=== PATIENT | female | born 1980 | race Caucasian/White ===

== ENCOUNTER 2023-07-05 10:20 | Outpatient (OUT) | payer BC, SELFPAY ==
--- NOTE | 2023-07-05 | MM_ITS ---
Patient Name: MILENA CARTY MR#: [id number] : 1980 Exam Date: 07/05/2023 Ordering Doctor: DR Jose Manuel Still . RADIOLOGY REPORT PROCEDURE: MM TOMOSYNTHESIS SCREENING BI COMPARISON: MG MAMM SCREEN 3D MYRA CAD, 07/02/2022. INDICATIONS: Screening for malignant neoplasm Calculator Name NCI Breast Cancer Risk Assessment Tool 5 Year Breast Cancer Risk 0.60% Lifetime Breast Cancer Risk 9.70% Personal Breast Cancer No Personal Ovarian Cancer No Treatments None Family Cancers None LOCATION: [facility] BREAST COMPOSITION: Extremely dense, which lowers the sensitivity of mammography. FINDINGS: DIAGNOSTIC CATEGORY 2--BENIGN FINDING: RIGHT BREAST: No significant suspicious finding. Small benign-appearing lymph node within central breast along posterior margin fibroglandular tissue. LEFT BREAST: No significant suspicious finding. No significant change has occurred. RECOMMENDATIONS: ROUTINE MAMMOGRAM AND CLINICAL EVALUATION IN 12 MONTHS. PLEASE NOTE: A NORMAL MAMMOGRAM DOES NOT EXCLUDE THE POSSIBILITY OF BREAST CANCER. A CLINICALLY SUSPICIOUS PALPABLE LUMP SHOULD BE BIOPSIED. Dictated by: Gregg Smith M.D. on 07/05/2023 at 14:48 Approved by: Gregg Smith M.D. on 07/05/2023 at 14:51
== END 2023-07-05 10:21 | disposition home or self-care (01) ==
LOC: MAMMO 10:23
PROVIDERS: PCP Family Medicine; Visit Provider Family Medicine
DX: Z12.31 Encounter for screening mammogram for malignant neoplasm of breast (principal)
CPT/HCPCS: 77063; 77067

== ENCOUNTER 2023-08-17 06:31 | Outpatient (OUT) | payer BC, SELFPAY ==
--- OUTSIDE RECORDS SUMMARY | 2023-08-17 06:35 | XMS_ITS | CCD ---
Author Organization [facility] Care Team Providers Care Digital Media Specialist Name Role Phone TARYN, GEORGE Unavailable Unavailable TARYN, GEORGE Unavailable Unavailable HOY, SEN Unavailable Unavailable Maximiliano Cason Unavailable Unavailable TARYN, GEORGE Unavailable Unavailable TARYN, GEORGE Unavailable Unavailable HOY, SEN Unavailable Unavailable TARYN, GEORGE Unavailable Unavailable TARYN, GEORGE Unavailable Unavailable HOY, SEN Unavailable Unavailable Gorty, Abiodun S Unavailable Unavailable TARYN, GEORGE Unavailable Unavailable TARYN, GEORGE Unavailable Unavailable HOY, SEN Unavailable Unavailable HOY ., DR CHATTERJEE Attending Unavailable HOY ., DR CHATTERJEE Consulting Unavailable HOY ., DR CHATTERJEE Primary Care Unavailable HOY ., DR CHATTERJEE Admitting Unavailable HOY ., DR CHATTERJEE Attending Unavailable HOY ., DR CHATTERJEE Consulting Unavailable HOY ., DR CHATTERJEE Primary Care Unavailable HOY ., DR CHATTERJEE Admitting Unavailable AMARILLO, DR MAXIMILIANO Martin Consulting Unavailable HOY ., DR CHATTERJEE Primary Care Unavailable MORGAN ., DR COOPER Attending Unavailable MORGAN ., DR COOPER Consulting Unavailable MORGAN ., DR COOPER Admitting Unavailable Allergies Allergy Classification Reported Allergen(s) Allergy Type Date of Onset Reaction(s) Facility (1 source) No Known Medication Allergies; Translations: [No Known Medication Allergies] Propensity to adverse reactions to drug (disorder) [facility] Repository Problems Active Problems Problem Classification Problem Date Documented Da te Episodic/Chronic Other screening for suspected conditions (not mental disorders or infectious disease) (5 sources) Encounter for screening mammogram for malignant neoplasm of breast; Translations: [Encounter for screening for malignant neoplasm of cervix] Onset: 04-17-2022 Episodic Unclassified (3 sources) CONTACT W/AND (SUSP) EXPOS COVID-19; Translations: [CONTACT W/AND (SUSP) EXPOS COVID-19] Onset: 08-30-2022 Past or Other Problems Problem Classification Problem Date Documented Date Episodic/Chronic Immunizations and screening for infectious disease (1 source) Encounter for screening for human papillomavirus (HPV); Translations: [ENC SCREENING HUMAN PAPILLOMAVIRUS] Onset: 04-25-2022 Episodic Unclassified (1 source) CONTACT W/AND (SUSP) EXPOS COVID-19; Translations: [CONTACT W/AND (SUSP) EXPOS COVID-19] Onset: 08-27-2022 Results Test Name Value Interpretation Reference Range Facility Covid-19 PCR (CVDTB)on SARS-CoV-2 (COVID-19) RNA JOHNNIE+probe Ql (Unsp spec) Not detected Normal NOT DETECTED [facility] Comment on above: Result Comment: This test is not yet approved or cleared by the [place] FDA. When there are no FDA-approved or cleared tests available, and other criteria are met, FDA can make tests available under an emergency access mechanism called an Emergency Use Authorization (EUA). The EUA for this test is supported by the Detailer of Health and Human Service's (HHS's) declaration that circumstances exist to justify the emergency use of in vitro diagnostics for the detection and/or diagnosis of the virus that causes COVID-19. This EUA will remain in effect (meaning this test can be used) for the duration of the COVID-19 declaration justifying emergency of IVDs, unless it is terminated or revoked by FDA (after which the test may no longer be used). When diagnostic testing is negative, the possibility of a false negative should be considered in the context of a patient's recent exposures and the presence of clinical signs and symptoms consistent with SARS-CoV-2. Performed By: #### C VDTBH #### [facility] [address] [place] [address] Dr. Eb Sol INSULINon 07-03-2022 Insulin 25.2 uIU/mL Critically high 2.6-24.9 [facility] Comment on above: Performed By: #### I NSULIN #### [facility] [address] [place] [address] Dr. Eb Sol CBC AUTO DIFFon 07-02-2022 BASO # 0.1 103/ul Normal 0.0-0.1 [facility] Comment on above: Performed By: #### C BC #### [facility] [address] [place] [address] Dr. Eb Sol Basophils/100 WBC (Bld) 1.2 % Normal 0.2-2.0 [facility] Comment on above: Performed By: #### C BC #### [facility] [address] [place] [address] Dr. Eb Sol EO # 0.2 103/ul Normal 0.0-0.7 [facility] Comment on above: Performed By: #### C BC #### [facility] [address] [place] [address] Dr. Eb Sol Eosinophils/100 WBC (Bld) 3.0 % Normal 0.9-7.0 [facility] Comment on above: Performed By: #### C BC #### [facility] [address] [place] [address] Dr. Eb Sol Erythrocyte distribution width (RBC) [Ratio] 12.8 % Normal 11.0-15.0 [facility] Comment on above: Performed By: #### C BC #### [facility] [address] [place] [address] Dr. Eb Sol Hematocrit (Bld) [Volume fraction] 39.7 % Normal 36.0-48.0 [facility] Comment on above: Performed By: #### C BC #### [facility] [address] [place] [address] Dr. Eb Sol Hemoglobin (Bld) [Mass/Vol] 13.8 g/dL Normal 12.0-16.0 [facility] Comment on above: Performed By: #### C BC #### [facility] [address] [place] [address] Dr. Eb Sol IG # 0.04 10e3/ul Critically high 0.00-0.03 [facility] Comment on above: Performed By: #### C BC #### [facility] [address] [place] [address] Dr. Eb Sol IG % 0.6 % Critically high 0.0-0.5 [facility] Comment on above: Performed By: #### C BC #### [facility] [address] [place] [address] Dr. Eb Sol LYMPH # 1.7 103/ul Normal 1.2-3.8 [facility] Comment on above: Performed By: #### C BC #### [facility] [address] [place] [address] Dr. Eb Sol Lymphocytes/100 WBC (Bld) 26.2 % Normal 20.5-60.0 [facility] Comment on above: Performed By: #### C BC #### [facility] [address] [place] [address] Dr. Eb Sol MANUAL DIFF REQ NO Normal [facility] Comment on above: Performed By: #### C BC #### [facility] [address] [place] [address] Dr. Eb Sol MCH (RBC) [Entitic mass] 29.3 pg Normal 26.7-34.0 [facility] Comment on above: Performed By: #### C BC #### [facility] [address] [place] [address] Dr. Eb Sol MCHC (RBC) [Mass/Vol] 34.8 g/dL Normal 29.9-35.2 [facility] Comment on above: Performed By: #### C BC #### [facility] [address] [place] [address] Dr. Eb Sol MCV (RBC) [Entitic vol] 84.3 fL Normal 81.0-99.0 [facility] Comment on above: Performed By: #### C BC #### [facility] [address] [place] [address] Dr. Eb Sol MONO # 0.6 103/ul Normal 0.3-0.8 [facility] Comment on above: Performed By: #### C BC #### [facility] [address] [place] [address] Dr. Eb Sol Monocytes/100 WBC (Bld) 9.1 % Normal 1.7-12.0 [facility] Comment on above: Performed By: #### C BC #### [facility] [address] [place] [address] Dr. Eb Sol NEUT # 3.9 103/ul Normal 1.4-6.5 [facility] Comment on above: Performed By: #### C BC #### [facility] [address] [address] [address] bE Sol Neutrophils/100 WBC (Bld) 59.9 % Normal 43.0-75.0 [facility] Comment on above: Performed By: #### C BC #### [facility] [address] [address] [address] Eb Sol Platelet mean volume (Bld) [Entitic vol] 10.4 fL Normal 9.5-13.5 [facility] Comment on above: Performed By: #### C BC #### [facility] [address] [place] [address] Dr. Eb Sol PLT 312 103/ul Normal 150-450 [facility] Comment on above: Performed By: #### C BC #### [facility] [address] [place] [address] Dr. Eb Sol RBC 4.71 106/ul Normal 4.20-5.40 [facility] Comment on above: Performed By: #### C BC #### [facility] [address] [place] [address] Dr. Eb Sol WBC 6.6 103/ul Normal 4.0-11.0 [facility] Comment on above: Performed By: #### C BC #### [facility] [address] [place] [address] Dr. Eb Sol FREE THYROXINE INDEX T7on FTI 2.18 Normal 1.30-4.50 [facility] Comment on above: Performed By: #### L IPID, CMP, T7, TSH #### [facility] [address] [place] [address] Dr. Eb Sol T3U 32.0 % Normal 30.0-39.0 [facility] Comment on above: Performed By: #### L IPID, CMP, T7, TSH #### [facility] [address] [place] [address] Dr. Eb Sol T4 [Mass/Vol] 6.80 ug/dL Normal 4.80-13.90 [facility] Comment on above: Performed By: #### L IPID, CMP, T7, TSH #### [facility] [address] [address] [address] Eb Sol GLYCOHEMOGLOBIN A1Con 2022 ADA RECOMMENDATION SEE BELOW Normal [facility] Comment on above: Result Comment: ADA RECOMMENDED LIMIT 4.0 - 6.0 ADA THERAPEUTIC TARGET < 7.0 ACTION SUGGESTED > 7.0 Performed By: #### A 1C ####[facility] [id number] [address]Dr. Eb Sol Glucose [Mass/Vol] 117 mg/dL Normal [facility] Comment on above: Performed By: #### A 1C ####[facility] [id number] [address]Dr. Eb Sol HbA1c (Bld) [Mass fraction] 5.7 % Normal 4.5-6.2 [facility] Comment on above: Performed By: #### A 1C ####[facility] [id number] [address]Dr. Eb Sol IRONon 07-02-2022 Iron [Mass/Vol] 97.0 ug/dL Normal 50.0-170.0 [facility] Comment on above: Performed By: #### I GOOD #### [facility] [address] [place] [address] Dr. Eb Sol LIPID PROFILEon 07-02-2022 CHOL-HDL RATIO NORM SEE BELOW Normal [facility] Comment on above: Result Comment: 3.3 - 4.4 LOW RISK 4.4 - 7.1 AVERAGE RISK 7.1 - 11.0 MODERATE RISK >11.0 HIGH RISK Performed By: #### L IPID, CMP, T7, TSH #### [facility] [address] [address] [address] Eb Sol Cholesterol [Mass/Vol] 247 mg/dL Critically high <=200 [facility] Comment on above: Performed By: #### L IPID, CMP, T7, TSH #### [facility] [address] [address] [address] Eb Sol Cholesterol in HDL [Mass/Vol] 50 mg/dL Normal 40-60 [facility] Comment on above: Performed By: #### L IPID, CMP, T7, TSH #### [facility] [address] [address] [address] Eb Sol Cholesterol in LDL [Mass/Vol] 153.0 mg/dL Normal [facility] Comment on above: Performed By: #### L IPID, CMP, T7, TSH #### [facility] [address] [address] [address] Eb Sol Cholesterol.total/ Cholesterol in HDL [Mass ratio] 4.9 {ratio} Normal [facility] Comment on above: Performed By: #### L IPID, CMP, T7, TSH #### [facility] [address] [address] [address] Eb Sol HDL NORMAL > or = 60 mg/dl - LO W CARDIOVASCULAR RISK <40 mg/dl - HIGH CARDIOVASCULAR RISK Normal [facility] Comment on above: Performed By: #### L IPID, CMP, T7, TSH #### [facility] [address] [address] [address] Eb Sol LDL CALC NORMAL SEE BELOW Normal [facility] Comment on above: Result Comment: <100 mg/dl OPTIMAL 100 - 129 mg/dl NEAR OR ABOVE OPTIMAL 130 - 159 mg/dl BORDERLINE HIGH 160 - 189 mg/dl HIGH >190 mg/dl VERY HIGH Performed By: #### L IPID, CMP, T7, TSH #### [facility] [address] [address] [address] Eb Sol Triglyceride [Mass/Vol] 220 mg/dL Critically high <=150 [facility] Comment on above: Performed By: #### L IPID, CMP, T7, TSH #### [facility] [address] [address] [address] Eb Sol VLDL CALC 44.0 mg/dL Normal [facility] Comment on above: Performed By: #### L IPID, CMP, T7, TSH #### [facility] [address] [address] [address] Eb Sol MG MAMM SCREEN 3D MYRA CADon 07-02-2022 MG MAMM SCREEN 3D MYRA CAD Patient: MILENA CARTY Exam Date: 07/02/2022 : 1980 Gender:F Ordering : DR SEN NOBLES . Admission #: [id number] Family : Order #: [id number] CLICK HERE TO VIEW EXAM RADIOLOGY REPORT PROCEDURE: MAMMOGRAM SCREENING 3D BILATERAL CAD COMPARISON: None. INDICATIONS: Screening mammography Calculator Name NCI Breast Cancer Risk Assessment Tool 5 Year Breast Cancer Risk 0.60% Lifetime Breast Cancer Risk 9.80% Personal Breast Cancer No Personal Ovarian Cancer No Treatments None Family Cancers None LOCATION: [facility] BREAST COMPOSITION: Extremely dense, which lowers the sensitivity of mammography. FINDINGS: DIAGNOSTIC CATEGORY 2--BENIGN FINDING: Scattered benign-appearing nodules are present. Scattered benign-appearing calcifications are present. Scattered benign-appearing lymph nodes are present. RIGHT BREAST: No significant suspicious finding. LEFT BREAST: No significant suspicious finding. RECOMMENDATIONS: ROUTINE MAMMOGRAM AND CLINICAL EVALUATION IN 12 MONTHS. PLEASE NOTE: A NORMAL MAMMOGRAM DOES NOT EXCLUDE THE POSSIBILITY OF BREAST CANCER. A CLINICALLY SUSPICIOUS PALPABLE LUMP SHOULD BE BIOPSIED. Dictated by: Maximiliano Nassar MD on 07/02/2022 at 08:37 Approved by: Maximiliano Nassar MD on 07/02/2022 at 08:41 Normal [facility] PROF 14(COMP METB)on 023 Albumin [Mass/Vol] 3.9 g/dL Normal 3.4-5.0 [facility] Comment on above: Performed By: #### L IPID, CMP, T7, TSH #### [facility] [address] [place] [address] Dr. Eb Sol Albumin/Globulin [Mass ratio] 1.1 {ratio} Normal [facility] Comment on above: Performed By: #### L IPID, CMP, T7, TSH #### [facility] [address] [id number] [address] Eb Sol ALP [Catalytic activity/Vol] 65 U/L Normal 46-116 [facility] Comment on above: Performed By: #### L IPID, CMP, T7, TSH #### [facility] [address] [address] [address] Eb Sol ALT [Catalytic activity/Vol] 33 U/L Normal 14-59 [facility] Comment on above: Performed By: #### L IPID, CMP, T7, TSH #### [facility] [address] [address] [address] Eb Sol Anion gap [Moles/Vol] 16.4 mmol/L Normal [facility] Comment on above: Performed By: #### L IPID, CMP, T7, TSH #### [facility] [address] [address] [address] Eb Sol AST [Catalytic activity/Vol] 21 U/L Normal 15-37 [facility] Comment on above: Performed By: #### L IPID, CMP, T7, TSH #### [facility] [address] [place] [address] Dr. Eb Sol Bilirubin [Mass/Vol] 0.4 mg/dL Normal 0.2-1.0 [facility] Comment on above: Performed By: #### L IPID, CMP, T7, TSH #### [facility] [address] [place] [address] Dr. Eb Sol Calcium [Mass/Vol] 9.2 mg/dL Normal 8.5-10.1 [facility] Comment on above: Performed By: #### L IPID, CMP, T7, TSH #### [facility] [address] [place] [address] Dr. Eb Sol Chloride [Moles/Vol] 104 mmol/L Normal 98-107 [facility] Comment on above: Performed By: #### L IPID, CMP, T7, TSH #### [facility] [address] [address] [address] Eb Sol CO2 [Moles/Vol] 23.8 mmol/L Normal 21.0-32.0 [facility] Comment on above: Performed By: #### L IPID, CMP, T7, TSH #### [facility] [address] [place] [address] Dr. Eb Sol Creatinine [Mass/Vol] 0.97 mg/dL Normal 0.55-1.02 [facility] Comment on above: Performed By: #### L IPID, CMP, T7, TSH #### [facility] [address] [address] [address] Eb Sol EGFR-AF PALESTINIAN >60 Normal >=60 [facility] Comment on above: Performed By: #### L IPID, CMP, T7, TSH #### [facility] [address] [address] [address] Eb Sol EGFR-NON AF PALESTINIAN >60 Normal >=60 [facility] Comment on above: Performed By: #### L IPID, CMP, T7, TSH #### [facility] [address] [address] [address] Eb Sol Globulin (S) [Mass/Vol] 3.6 g/dL Normal [facility] Comment on above: Performed By: #### L IPID, CMP, T7, TSH #### [facility] [address] [place] [address] Dr. Eb Sol Glucose [Mass/Vol] 119 mg/dL Critically high 74-106 [facility] Comment on above: Performed By: #### L IPID, CMP, T7, TSH #### [facility] [address] [address] [address] Eb Sol Potassium [Moles/Vol] 4.2 mmol/L Normal 3.5-5.1 [facility] Comment on above: Performed By: #### L IPID, CMP, T7, TSH #### [facility] [address] [address] [address] Eb Sol Protein [Mass/Vol] 7.5 g/dL Normal 6.4-8.2 [facility] Comment on above: Performed By: #### L IPID, CMP, T7, TSH #### [facility] [address] [place] [address] Dr. Eb Sol Sodium [Moles/Vol] 140 mmol/L Normal 136-145 [facility] Comment on above: Performed By: #### L IPID, CMP, T7, TSH #### [facility] [address] [address] [address] Eb Sol Urea nitrogen [Mass/Vol] 16.0 mg/dL Normal 7.0-18.0 [facility] Comment on above: Performed By: #### L IPID, CMP, T7, TSH #### [facility] [address] [address] [address] Eb Sol Urea nitrogen/Creatinin e [Mass ratio] 16.5 mg/mg Normal [facility] Comment on above: Performed By: #### L IPID, CMP, T7, TSH #### [facility] [address] [place] [address] Dr. Eb Sol TSHon 07-02-2022 TSH 3.367 uIU/mL Normal 0.358-3.740 [facility] Comment on above: Performed By: #### L IPID, CMP, T7, TSH #### [facility] [address] [place] [address] Dr. Eb Sol PAP ACOG PANEL 2: 30 to 65on 04-29-2022 . . Normal [facility] Comment on above: Result Comment: Perf ormed at: WB Performed By: #### [id number] #### [facility] [address] [place] [address] Dr. Eb Sol Age Gdln ACOG Testing - Normal [facility] Comment on above: Performed By: #### [id number] #### [facility] [address] [place] [address] Dr. Eb Sol DIAGNOSIS: Comment Normal [facility] Comment on above: Result Comment: NEGA TIVE FOR INTRAEPITHELIAL LESION OR MALIGNANCY. Performed at: WB Performed By: #### [id number] #### [facility] [address] [place] [address] Dr. Eb Sol HPV Aptima Negative Normal Negative [facility] Comment on above: Result Comment: This nucleic acid amplification test detects fourteen high-risk HPV types (16,18,31,33,35,39,45,51,52,56,58,59,66,68) without differentiation. Performed at: =G Performed By: #### [id number] #### [facility] [address] [place] [address] Dr. Eb Sol HPV Genotype Reflex Comment Normal [facility] Comment on above: Result Comment: Crit eria not met, HPV Genotype not performed. Performed at: WB Performed By: #### [id number] #### [facility] [address] [place] [address] Dr. Eb Sol Methodology: Comment Normal [facility] Comment on above: Result Comment: This liquid based ThinPrep(R) pap test was screened with the use of an image guided system. Performed at: WB Performed By: #### [id number] #### [facility] [address] [place] [address] Dr. Eb Sol Note: Comment Normal [facility] Comment on above: Result Comment: The Pap smear is a screening test designed to aid in the detection of premalignant and malignant conditions of the uterine cervix. It is not a diagnostic procedure and should not be used as the sole means of detecting cervical cancer. Both false-positive and false-negative reports do occur. . Performed at: WB Performed By: #### [id number] #### [facility] [address] [place] [address] Dr. Eb Sol Performed by: Comment Normal [facility] Comment on above: Result Comment: Esperanza Parmar, Quality Improvement Manager (ASCP) Performed at: WB Performed By: #### [id number] #### [facility] [address] [place] [address] Dr. Eb Sol Specimen adequacy: Comment Normal [facility] Comment on above: Result Comment: Sati sfactory for evaluation. Endocervical and/or squamous metaplastic cells (endocervical component) are present. Performed at: WB Performed By: #### [id number] #### [facility] [address] [place] [address] Dr. Eb Sol Intraoperative Noteon 2017 Intraoperative Note [id number]#1.00OTGTIFF [facility] Intraoperative Noteon 2017 Intraoperative Note [id number]#1.[facility]-19 History and Physical [id number]#1.[facility] - Surgeon/P pikny 04-19-2017 Operative Report - Surgeon/Physician [id number]#1.00[facility] Provider Orderson 04-19-2017 Provider Orders [id number]#1.[facility] Orders [id number]#1.[facility] Coding Summaryon 03-28-2017 Coding Summary CODING DATE: 017 [facility] STATUS: Home PAYOR: Commercial Insurance [employer] DESCRIPTION [id number] Level 1 Laparoscopy and Related Services ADMIT DX: REASON FOR VISIT DX: R10.2 Pelvic and perineal pain N83.201 Unspecified ovarian cyst, right side FINAL DX: PRINCIPAL: N83.11 Corpus luteum cyst of right ovary SECONDARY: Z72.0 Tobacco use PYMT PROC APC STAT DESCRIPTION DOCTOR NAME DATE 39091 5361 J1 Laparoscopy, surgical; George Centeno DO 03/19/2017 with removal of adnexal structures (partial or total oophorectomy and/or salpingectomy) NOTE: The code number assigned matches the documented diagnosis and / or procedure in the patient's chart. However, the narrative phrase printed from the coding software may appear abbreviated, or result in slightly different terminology. Coded By: Katelyn Robertson Date Saved: 03/28/2017 07:54 am [facility] Intraoperative Noteon 2016 Intraoperative Note [id number]#1.[facility] - Other Lab Resultson Lab - Other Lab Results [id number]#1.[facility] Sendout Teston Pathology Send Out. See Report [facility] Comment on above: Order Comment: RIGHT OVARY AND TUBE Performed By: #### 2 [id number] ####[facility] (DEFAULT)[address] [place] [address] Consent Formson 03-20-2017 Consent Forms [id number]#1.00[facility] Consent Forms [id number]#1.00[facility] Telemetry Stripson 7 Telemetry Strips [id number]#1.00[facility] Anesthesia Noteon 03-19-2017 Anesthesia Note Patient: MILENA CARTY : 37 years Sex: FEMALE : [birth year]Associated Diagnoses: NoneAuthor: Maximiliano Cason DOPostoperative InformationPost Operative Note: Post Anesthesia Care Unit.Review / ManagementCondition: Stable.AssessmentAnesthetic outcomeNo anesthetic complications noted.PlanTransfer/ Discharge: Patient can be discharged from PACU when criteria met.Condition good.[Electronically Signed on: 03/19/2017 10:26 EST] Maximiliano Cason DO[Verified on: 03/19/2017 10:26 EST] Maximiliano Cason DO [facility] Anesthesia Note Patient: MILENA CARTY : 37 years Sex: FEMALE : [birth year]Associated Diagnoses: NoneAuthor: Maximiliano Casonreoperative InformationAnesthesia history: Patient history: No difficult intubation, No malignant hyperthermia. Family history: No malignant hyperthermia, No prior anesthesia problems.Review of SystemsConstitutionalEyeEar/No se/Mouth/ThroatRespiratory: No shortness of breath, No cough.Cardiovascular: No chest pain.Neurologic: Alert and oriented X4.Health StatusAllergies:Allergic Reactions (All)No Known Medication AllergiesCurrent medications:Home Medications (3) Activeibuprofen 800 mg oral tablet 800 mg = 1 tab(s), PRN, PO, TIDMetoprolol Succinate ER 50 mg oral tablet, extended release 50 mg = 1 tab(s), PO, DailyNorco 5 mg-325 mg oral tablet 1 tab(s), PRN, PO, w5lyAvvketu list (past medical history):All ProblemsHTN (hypertension) / SNOMED CT [id number] / ConfirmedHistoriesFamily History:No family history items have been selected or recorded.Procedure history:Laparoscopy ([id number]) on 01/22/2017 at 37 Years.Carpal tunnel release ([id number]).Comments:01/16/2017 13:22 - Joanne Rollins RNright sideCesarean section ([id number]).Comments:01/16/2017 13:23 - Joanne Rollins RNtimes 1Social History Alcohol Assessment Use: Current. 1-2 times per year Tobacco Assessment Comment: states uses the e-ciggs (throughout the day) Substance Abuse Assessment Substance use: Never..Social & Psychosocial DctzkxUepfrlz69/20/2017 Alcohol Use: Current Frequency: 1-2 times per yearSubstance Abuse01/16/2017 Substance use: NeverTobacco Comment: states uses the e-ciggs (throughout the day) - 01/16/2017 13:26 - Joanne Rollins RN.Physical ExaminationVS/MeasurementsVita l Signs (last 24 hrs) Last ChartedHeart Rate Apical 68 bpm (MAR 19:)Resp Rate 14 br/min (MAR 19:)SBP 116 mmHg (MAR 19:)DBP 86 mmHg (MAR 19:)SpO2 99 % (MAR 19:)General: Alert and oriented, No acute distress.Airway: Mallampati classification: II (soft palate, fauces, uvula visible). Temporomandibular joint mobility: Good. Mouth: Dentures ( Lower dentures, Partial plate ). Neck: Non-tender, Full range of motion.Respiratory: Lungs are clear to auscultation, Respirations are non-labored.Cardiovascular: Normal rate, Regular rhythm.Neurologic: Alert, Oriented.Review / ManagementLaboratory ResultsPlanAmerican Society of Anesthesiologists#(ASA) physical status classification: Class II.Anesthetic Preoperative PlanAnesthesia: General.. Anesthetic plan, risks, benefits, and alternatives discussed with the patient and/or family. Risks discussed: nausea, vomiting, sore throat, serious complications. Patient verbalized understanding. Family/Guardian present. Informed consent was given. Consent was signed by the patient.[Electronically Signed on: 03/19/2017 08:50 EST] Maximiliano Cason DO[Verified on: 03/19/2017 08:50 EST] Maximiliano Cason DO Normal [facility] Inpatient Clinical Summaryon 03-19-2017 Inpatient Clinical Summary [facility] SURGERYClinical Discharge SummaryPERSON INFORMATIONName MILENA CARTY Age 37 Years [birth year]Sex FEMALE Language Divehi PCP Surekha NOBLES Status [facility] Service Ambulatory SurgeryN [id number] Acct# Arrival 03/19/17 06:44:53Visit Reason dx laparoscopy Acuity LOS 004 23:46Address:[address] [place] [address]Dhkkave:PROVIDER INFORMATIONVITALS INFORMATIONVital Sign Triage LatestTemp OralTemp Temporal 36.3 DegC 35.9 DegCTemp IntravascularTemp AxillaryTemp Jjoxrr42 Sat 99 % 100 %Respiratory Rate 14 br/min 14 br/minPeripheral Pulse Rate 68 bpm 55 bpmApical Heart Rate 68 bpm 68 bpmBlood Pressure 116 mmHg / 86 mmHg 99 mmHg / 70 mmHgComment:MEDICAL INFORMATIONAllergy Info:No Known Medication AllergiesPrescriptions Given:Medication List:Continue These Medications:ibuprofen (ibuprofen 800 mg oral tablet) 800 mg Oral 3 times a day as needed for for painmetoprolol (Metoprolol Succinate ER 50 mg oral tablet, extended release) 50 mg Oral every dayDiscontinue These Medications:acetaminophen-hydr ocodone ([place]ford 5 mg-325 mg oral tablet) 1 tab(s) Oral Every 6 hours as needed for for pain may take 1 or 2 tabletsnot to exceed 8 tablets/dayComment:Lab and Radiology ResultsLaboratory or Other Results This Visit (last charted value for your 03/19/2017 visit) Chemistry 03/19/2017 7:15 AM U Preg: NegativeDIET & ACTIVITYPatient Activity Level:Patient Diet:Patient Activity Restrictions:DISCHARGE INFORMATIONDischarge Disposition:Discharge Location:DEPART REASON INCOMPLETE INFORMATIONPATIENT EDUCATION INFORMATIONInstructions:Diagno stic Laparoscopy, Care After - [facility]eno ([facility]Follow up:With: Address: When:George Centeno [address] [id number] Business (1) In 2 weeks 04/02/17Comments:Call for follow up appointmentWith: Address: When:SEN NOBLES [address] [place] [address] Business (1)DIAGNOSIS1:Pelvic pain; 2:Ovarian cyst, rightComment:PHYS DOC NOTES Normal [facility] Inpatient Patient Summaryon 03-19-2017 Inpatient [place] [address] patient Discharge InstructionsName: MILENA CARTYMICHELLEOB: 82 Address: [address] [place] [address] Care Provider:Name: SEN NOBLESPhone: After you are discharged if you find you have any questions, please, call [phone] ext [phone] to speak to a nurse.Discharge Diagnosis: 1:Pelvic pain; 2:Ovarian cyst, rightIf you received any narcotics, sedation, or any other medication that causes drowsiness for the next 24 hours, unless otherwise directed:? Do not drive a car.? Do not operate machinery such as power tools, lawn mowers, drills, sewing machines, or stoves? Avoid alcoholic beverages and drugs for allergies, nerves, or sleep? Do not make important personal or business decisions or sign any legal documentsPremier Health [facility] Center would like to thank you for allowing us to assist you with your healthcare needs. The following includes patient education materials and information regarding your injury/illness.MILENA CARTY CARLOS has been given the following list of follow-up instructions, prescriptions, and patient education materials:Follow-up InstructionsWith: Address: When:George Centeno [address] [place] [address] Business (1) In 2 weeks 04/02/17Comments:Call for follow up appointmentWith: Address: When:SEN NOBLES [facility] [place] [address] Business (1)MedicationsDuring the course of your visit, your medication list was updated with the most current information. The details of those changes are reflected below:Medications to Continue That Have Not ChangedOther Medicationsibuprofen (ibuprofen 800 mg oral tablet) 1 tab(s) Oral 3 times a day as needed for pain.metoprolol (Metoprolol Succinate ER 50 mg oral tablet, extended release) 1 tab(s) Oral every day.No Longer Take the Following Medicationsacetaminophen-hydro codone ([place]ford 5 mg-325 mg oral tablet) 1 tab(s) Oral Every 6 hours as needed for pain. may take 1 or 2 tabletsnot to exceed 8 tablets/day. Refills: 0.It is important to always keep an active list of medications available so that you can share with other providers and manage your medications appropriately. As an additional courtesy, we are also providing you with your final active medications list that you can keep with you.ibuprofen (ibuprofen 800 mg oral tablet) 1 tab(s) Oral 3 times a day as needed for pain.metoprolol (Metoprolol Succinate ER 50 mg oral tablet, extended release) 1 tab(s) Oral every day.Take only the medications listed above. Contact your doctor prior to taking any medications not on this list.Diet & ActivityPatient Activity Level:Patient Diet:Patient Activity Restrictions:Comment:Patient education materials, if any, will display belowDiagnostic Laparoscopy, Care AfterRefer to this sheet in the next few weeks. These instructions provide you with information about caring for yourself after your procedure. Your health care provider may also give you more specific instructions. Your treatment has been planned according to current medical practices, but problems sometimes occur. Call your health care provider if you have any problems or questions after your procedure.WHAT TO EXPECT AFTER THE PROCEDUREAfter your procedure, it is common to have mild discomfort in the throat and abdomen.HOME CARE INSTRUCTIONS? Take arva-xsl-bvjacuh and prescription medicines only as told by your health care provider.? Do not drive for 48 hours or while still taking narcotic pain medications? Walk daily and frequently throughout the day. No heavy exercise until after 2 weeks postoperativley? Do not take baths, swim, or use a hot tub until your health care provider approves. You may shower daily ? Follow instructions from your health care provider about how to take care of your incision. Make sure you:? Wash your hands with soap and water before you change your bandage (dressing). If soap and water are not available, use hand crystal flat grinder.? Change your dressings (Band Aids) daily after shower.? Leave adhesive strips in place until they peel off partially then remove them.? Check your incision area every day (with just washed or sanitized hands only), for signs of infection.? More redness, swelling, or pain.? More fluid or blood.? Warmth. ? Pus or a bad odor Shoulder pain may occur after surgery occassionaly. Increased walking and pain medicine will help ease this and pain will resolve within 12 hours.SEEK MEDICAL CARE IF:? You feel light-headed or faintness unrelated to pain medication usage? You are unable to pass gas or unable to have a bowel movement.? You feel nauseous or you vomit.? You develop a rash.? You have more redness, swelling, or pain around your incisions? You have more fluid or blood coming from your incisions.? You have pus or a bad odor coming from your incisions? You have a fever or chills.SEEK IMMEDIATE MEDICAL CARE IF:? Your pain is getting worse.? You have ongoing vomiting.? The edges of your incision open up.? You have trouble breathing.? You have chest pain.This information is not intended to replace advice given to you by your health care provider. Make sure you discuss any questions you have with your health care provider.Document Released: 03/26/2016 Document Reviewed: 03/26/2016[employer] Patient Education ?2016 [employer].Viruses or BacteriaWhat?s got you sick?Antibiotics only treat bacterial infections. Viral illnesses cannot be treated with antibiotics. When an antibiotic is not prescribed, ask your healthcare professional for tips on how to relieve symptoms and feel better. Usual CauseIllness Viruses Bacteria Antibiotic NeededCold/Runny Nose NOBronchitis/Chest Cold (in otherwise healthy children and adults) NOWhooping Cough YesFlu NOStrep Throat YesSore Throat (except strep) NOFluid in the middle ear (otitis media with effusion) NOUrinary Tract Infection YesAntibiotics Aren?t Always the Answerwww.cdc.gov/getsmart GETSMARTKnow When Antibiotics Trista.[place] Department of Health and Human ServicesCleveland Clinic Fairview Hospitalers for Disease Control and Prevention December 2013 [facility] MAGR Intraoperative Recordon 03-19-2017 MAGR Intraoperative Record MAGR Intra-Op Record Summary Primary Physician: George Centeno DO Finalized Date/Time: 03/19/17 13:24:14 Pt. Name: MILENA CARTY/Sex: 1980 FEMALE Med Rec #: [id number] Physician: George Centeno DO Financial #: [id number] Pt. Type: D Room/Bed: / Admit/Disch: 03/19/17 06:44:53 - 03/19/17 12:05:00 Institution: Case Times MAGR Entry 1 Patient In Room Time 03/19/17 09:04:00 Out Room Time 03/19/17 10:20:00 Anesthesia Start Time 03/19/17 09:04:00 Stop Time 03/19/17 10:20:00 Surgery Start Time 03/19/17 09:30:00 Stop Time 03/19/17 10:11:00 Last Modified By: Valencia Johnson RN 03/19/17 13:19:01 Case Attendance MAGR Entry 1 Entry 2 Entry 3 Case Attendee George Centeno DO, David DO Radloff, Leigh-Ann CST Role Performed Surgeon - Primary Anesthesiologist of Air Sampling And Monitoring Record Time In 03/19/17 09:04:00 03/19/17 09:04:00 03/19/17 09:04:00 Time Out 03/19/17 10:20:00 03/19/17 10:20:00 03/19/17 10:20:00 Procedure Laparoscopy Diagnostic Laparoscopy Diagnostic Laparoscopy Diagnostic Last Modified By: Valencia Johnson RN, Stephanie RN Sauer, Stephanie RN 03/19/17 13:19:07 03/19/17 13:19:07 03/19/17 13:19:07 Entry 4 Entry 5 Case Attendee TyronMichelle Valencia Lopez CST, RN Role Performed Scrub Personnel New Car Get Ready Mechanic Time In 03/19/17 09:04:00 03/19/17 09:04:00 Time Out 03/19/17 10:20:00 03/19/17 10:20:00 Procedure Laparoscopy Diagnostic Laparoscopy Diagnostic Last Modified By: Valencia Johnson RN, Stephanie RN 03/19/17 13:19:07 03/19/17 13:19:07 Surgical Procedures MAGR Pre-Care Text: A.20 Verifies operative procedure, surgical site, and laterality Im.150 Develops individualized plan of care Entry 1 Procedure Laparoscopy Diagnostic Primary Procedure Yes Primary Surgeon George Centeno DO Surgeon Comment Diagnostic Laparoscopy Start 03/19/17 09:30:00 Stop 03/19/17 10:11:00 Anesthesia Type General Surgical Service Gynecology Wound Class Clean Last Modified By: Valencia Johnson RN 03/19/17 13:19:13 Post-Care Text: O.730 The patient's care is consistent with the individualized perioperative plan of care General Case Data MAGR Pre-Care Text: A.350.1 Classifies surgical wound Entry 1 Case Information OR MAGR OR 01 Case Level Level 4 Wound Class Clean Specialty Gynecology ASA Class 2 Diagnosis Preop Diagnosis Pelvic pain right Postop Same As Preop Yes ovarian cyst Postop Diagnosis Pelvic pain right ovarian cyst Last Modified By: Valencia Johnson RN 03/19/17 09:46:24 Post-Care Text: O.760 Patient receives consistent and comparable care regardless of the setting Time Out MAGR Entry 1 Time out date/time 03/19/17 09:26:00 All team members Yes have introduced themselves by name and role Surgeon, Yes Surgeon reviews Yes anesthesia, nurse critical or confirm patient, unexpected steps, site, procedure operative duration, anticipated blood loss Anesthesia team Yes Nursing team Yes reviews any reviews sterility patient-specific (including concerns indicator results) and equipment issues/concerns Antibiotic N/A Is essential Yes prophylaxis given imaging displayed? within the last 60 minutes Last Modified By: Valencia Johnson RN 03/19/17 09:46:52 Patient Positioning MAGR Pre-Care Text: A.280 Identifies baseline musculoskeletal status Im.40 Positions the patient Im.80 Applies safety devices Entry 1 Procedure Laparoscopy Diagnostic Body Position Low Lithotomy Left Arm Position Tucked and padded at Right Arm Position Extended on padded arm side board Left Leg Position Secured in Stirrup Right Leg Position Secured in Stirrup Feet Uncrossed? Yes Press Points Checked Yes Positioning Device Safety Strap Outcome Met (O.80) Yes Last Modified By: Valencia Johnson RN 03/19/17 09:47:19 Post-Care Text: E.290 Evaluates musculoskeletal status O.80 Patient is free from signs and symptoms of injury related to positioning Skin Prep MAGR Pre-Care Text: A.30 Verifies allergies Im.270 Performs skin preparation Im.270.1 Implements protective measures to prevent skin and tissue injury due to chemical sources Entry 1 Skin Prep Syntegrity Prep Agents (Im.270) Povidone-Iodine, Prep By Valencia Johnson RN Chlorhexidine Gluconate Prep Area (Im.270) Abdomen, Vagina and Skin Prep Agent Dry Yes perineum Without Pooling Hair Removal Syntegrity Hair Removal Methods Clipper Hair Removal By Magdalena Love FLANGER Hair Removal Site Pubis Outcome Met (O.100) Yes Last Modified By: Valencia Johnson RN 03/19/17 09:48:14 Post-Care Text: E.10 Evaluates for signs and symptoms of physical injury to skin and tissue O.100 Patient is free from signs and symptoms of chemical injury Counts Verification MAGR Pre-Care Text: A.20 Verifies operative procedure, surgical site, and laterality A.20.2 Assesses the risk for unintended retained foreign body Im.20 Performs required counts Entry 1 Procedure Laparoscopy Diagnostic Counts Verification Initial Counts Items included in Instruments, Sponges, Initial Counts Valencia Johnson RN, the Initial Count Sharps Performed By Michelle Ackerman FLANGER Initial Count Time 03/19/17 08:48:00 Counts Verification Final Counts Items Included in Sponges, Sharps Final Count Status Correct Final Count Final Counts Valencia Johnson RN, Final Count Time 03/19/17 09:55:00 Performed By Michelle Ackerman CST Surgeon notified of Yes final counts status Outcome Met (O.20) Yes Last Modified By: Valencia Johnson RN 03/19/17 10:04:01 Post-Care Text: E.50 Evaluates results of the surgical count O.20 Patient is free from unintended retained foreign objects Patient Care Devices MAGR Pre-Care Text: A.200 Assesses risk for normothermia regulation A.40 Verifies presence of prosthetics or corrective devices Im.280 Implements thermoregulation measures Im.60 Uses supplies and equipment within safe parameters Entry 1 Equipment Type FORCED WARM AIR UNIT Serial ?# [id number] Equipment Setting 43 degrees Last Modified By: Valencia Johnson RN 03/19/17 09:49:10 Post-Care Text: E.10 Evaluates signs and symptoms of physical injury to skin and tissue O.700 Patient is free from signs and symptoms of injury caused by extraneous objects Cautery MAGR Pre-Care Text: A.240 Assesses baseline skin condition A.40 Verifies presence of prosthetics or corrective devices Im.50 Implements protective measures to prevent injury due to electrical sources Entry 1 ESU Type Electrosurgical Unit Identification [id number] Number ESU Settings Syntegrity Cut Setting 25 Coag Setting 25 Grounding Pad Details Grounding Pad Yes Verified By Valencia Johnson RN Needed? Grounding Pad Site Table Grounding Pad Within Expiration Yes Date? Outcome Met (O.10) Yes Last Modified By: Valencia Johnson RN 03/19/17 10:03:24 Post-Care Text: E.10 Evaluates for signs and symptoms of physical injury to skin and tissue O.10 Patient is free from signs and symptoms of injury related to thermal sources Medication Administration MAGR Pre-Care Text: A.210 Identifies physiological status Im.220 Administers prescribed medications Entry 1 Time Administered 03/19/17 10:00:00 Medication .25% MARCAINE WITH EPI Route of Admin Incisional/Surgical Site Volume 30 mL By George Centeno DO Outcome Met (O.130) Yes Last Modified By: Valencia Johnson RN 03/19/17 10:02:31 Post-Care Text: E.20 Evaluates response to medications O.130 Patient receives appropriately administered medication(s) Dressing/Packing MAGR Pre-Care Text: A.350 Assesses susceptibility for infection Im.290 Administer care to wound sites Entry 1 Skin Prep Agent Yes Site Abdomen Removed Prior to Dressing? Wound closure Primary Dressing Item Details Dressing Item 2x2's Tape (Im.290) Wound Closure Strip (Im.290) Outcome Met Yes Last Modified By: Valencia Johnson RN 03/19/17 10:02:54 Post-Care Text: E.200 Evaluates progress of wound healing O.200 Patient's wound perfusion is consistent with or improved from baseline levels Departure from OR MAGR Entry 1 Present on Depart Oxygen Via Stretcher Post-op Destination PACU Skin DFO Condition Intact Description Condition Warm Description Condition Dry Description Airway Maintenance Patient Status Stable Oxygen in Use? Yes Airway Device Simple mask Flow Rate 15 L/min Last Modified By: Valencia Johnson RN 03/19/17 10:03:09 Case Comments Finalized By: Valencia Johnson RN Document Signatures Signed By: Valencia Johnson RN 03/19/17 [facility] [address] [facility] Record [facility] PACU Record [facility] Primary Physician: George Centeno DO Finalized Date/Time: 03/19/17 11:29:42 Pt. Name: MILENA CARTY/Sex: 1980 FEMALE Med Rec #: [id number] Physician: George Centeno DO Financial #: [id number] Pt. Type: D Room/Bed: / Admit/Disch: 03/19/17 06:44:53 - Institution: PACU Case Times MAGR Entry 1 In PACU I 03/19/17 10:22:00 Discharge from PACU 03/19/17 11:00:00 I Last Modified By: Linda Bledsoe RN 03/19/17 11:29:38 General Comments: PATIENT RECEIVED IN PACU- REPORT RECEIVED FROM DR CASON AND VALENCIA JOHNSON RN. PATIENT AROUSEBLE BUT QUICKLY RETURNED TO RESTFUL STATE. RESPIRATIONS EASILY AND UNLABORED- LUNGS CLEAR ON AUSCULTATION. 1100 PATIENT AWAKE AND ALERT. PATIENT TAKING ICE CHIPS AT INTERVALS. PATIENT TRANSFERRED TO PACU II PER VALENCIA JOSE JUAN, RN - REPORT GIVEN TO GILES NELSON RN Finalized By: Linda Bledsoe RN Document Signatures Signed By: Linda Bledsoe RN 03/19/17 11:29 Normal [facility] MAGR Postoperative Recordon 03-19-2017 MAGR Postoperative Record MAGR Phase II Record Summary Primary Physician: George Centeno DO Finalized Date/Time: 03/19/17 12:16:03 Pt. Name: MILENA CARTY /Sex: 1980 FEMALE Med Rec #: [id number] Physician: George Centeno DO Financial #: [id number] Pt. Type: D Room/Bed: / Admit/Disch: 03/19/17 06:44:53 - Institution: Phase II Case Times MAGR Pre-Care Text: Patient is free from s/s of injury. Patient remains free from compromised physical state related to surgery or anesthesia. Patient comfort maintained. Patient/family verbalize understanding of discharge instructions. Entry 1 In PACU II 03/19/17 11:00:00 Discharge from PACU 03/19/17 12:05:00 II Last Modified By: Giles Nelson RN 03/19/17 12:16:01 Post-Care Text: The patient remains free from s/s of injury. Patient's vital signs stable, circulation maintained, return to preop mental and physical status, opsite/dressing intact, minimal or absent nausea and vomiting, tolerates po intake. Patient verbalizes adequate pain control. Patient/family express understanding of discharge instructions. General Comments: Pt arrives per cart accompanied by Clarence Johnson RN, report given. Pt drowsy but responsive. Color good, skin dry and warm. Resp reg., nonlabored. Pt C/O minimal RLQ discomfort. Abd primapore dressings x3 dry and intact. Sc. amt serosang drainage noted on umb. dressing. C&DB effectively. 1145 Disch instructions reviewed with pt and , verbalized understanding. Copy of instructions given to pt. 1150 Assisted up to BR to vd qs. IV discont, bleeding controlled. Abd dressings unchanged. Sm. vag bleeding noted on peripad. Pt cont to deny pain. Pt dressing. 1205 Disch per W/C to private car. Finalized By: Warga, Giles RN Document Signatures Signed By: Giles Nelson RN 03/19/17 12:16 [facility] MAGR Preoperative Recordon 1 05-19-2016 MAGR Preoperative Record MAGR Pre-Op Record Summary Primary Physician: George Centeno DO Finalized Date/Time: 03/19/17 11:10:59 Pt. Name: MILENA CARTY /Sex: 1980 FEMALE Med Rec #: [id number] Physician: George Centeno DO Financial #: [id number] Pt. Type: D Room/Bed: / Admit/Disch: 03/19/17 06:44:53 - Institution: Pre-Op Case Times MAGR Pre-Care Text: Patient will be optimally prepared for surgery. Patient is free from s/s of injury. Provide information to patient/family related to plan of care. Verify patient allergies. Confirm identity and verify consent before the operative or invasive procedure. Entry 1 Patient Arrival Time 03/19/17 07:15:00 Preop Departure 03/19/17 09:00:00 Last Modified By: Giles Nelson RN 03/19/17 11:10:57 Post-Care Text: Patient is prepared mentally and physically and is ready for surgery. The patient remains free from s/s of injury. Patient/family express understanding of plan of care and participate in decisions affecting his or her perioperrative plan of care. Allergies documented appropriately. Patient identifiers and consent correct. General Comments: Pt arrives per amb. Pt denies any CP, SOB, pacemaker/defib., Hx of S/S of flu, or sleep apnea. Pt denies any pain. Pt states menstruating. Finalized By: Giles Nelson RN Document Signatures Signed By: Giles Nelson RN 03/19/17 11:10 [facility] Operative Report - Surgeon/P pinky 03-19-2017 Operative Report - Surgeon/Physician DATE OF PROCEDURE: 03/19/2017PREOPERATIVE DIAGNOSIS: Pelvic pain, complex right ovarian cyst.POSTOPERATIVE DIAGNOSIS: Pelvic pain, complex right ovarian cyst, pendingpathology.OPERATIVE PROCEDURE: Diagnostic laparoscopy, operative laparoscopy, rightsalpingo-oophorectomy.MACARIO GEON: George Centeno, DOANESTHESIA: General by Maximiliano Leahy D.O.COMPLICATIONS: None.ESTIMATED BLOOD LOSS: 25 ccFLUIDS: Approximately 1500 cc Lactated Ringer'sURINE OUTPUT: Patient emptied bladder just prior to the procedure.FINDINGS: 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 Bowel normal appearing.PROCEDURE: The patient was taken to the operating room and placed in thesupine position. After adequate general anesthesia, she was placed into thedorsolithotomy position and was then prepped and draped in the normal sterilefashion. Next, a weighted speculum was placed into the patient's vagina andthe anterior lip of the cervix was then grasped with a single toothtenaculum. An [place] uterine manipulator was then advanced into the cervix toprovide a means to manipulate the uterus. The speculum was then removed fromthe vagina. Attention was then turned to the patient's abdomen, where a 5 mmskin incision was made in the infraumbilical fold. The Veress needle was thencarefully introduced into the peritoneal cavity at a 45 degree angle whiletenting the abdominal wall. Intraperitoneal placement was confirmed by theuse of a water filled syringe and a drop in intra-abdominal pressure with theinsufflation of the CO2 gas. The trocar and sleeve were advanced into theabdomen where placement was confirmed by the laparoscope. Thepneumoperitoneum was obtained with approximately 3 liters of CO2 gas and the5 mm trocar and sleeve were advanced without difficulty into the abdomenwhere placement was confirmed by the laparoscope. A second skin incision wasthen made 2 cm above the pubic symphysis in the right lower quadrant. Thesecond trocar and sleeve (5 mm) was then advanced under direct visualization.A third skin incision was then made 2 cm above the pubic symphysis in theleft lower quadrant. The third trocar and sleeve (12 mm) was then advancedunder direct visualization. A survey of the patient's pelvis and abdomenrevealed the anatomy as discussed in findings. Next, the grasper was thenplaced in the second trocar site and the ovary was found to be very cysticwith multiple cysts on the ovary and the right tube tortuously adhesed to theovary as well. The grasper grasped the ovary until the utero-ovarianligament and the infundibulopelvic ligament could be visualized. Then theLigaSure was placed in the third trocar site and the ligaments were thenserially clamped, coagulated and cut until the right ovary and tube wasfreely mobile, and the endopouch was placed in the third trocar site and thenow freed right ovary and tube was placed into the bag ad was removed througha third trocar site. Excellent hemostasis was noted. The instruments werethen removed from the patient's abdomen and the incision 12 mm was thenclosed fascially with O Vicryl and all the other incisions were then closedwith 4-0 Vicryl in a subcuticular manner on a curved needle. The Acornuterine manipulator was then removed from the patient's vagina and nobleeding was noted from the cervix. Please note Marcaine 0.25% withepinephrine was also injected into the three incisions. The patienttolerated the procedure well. Sponge, lap, needle and instrument counts werecorrect x2. The patient was taken to the recovery room, awake and in stablecondition.SHAMIR Paul #: [id number]: 03/19/2017T: 03/19/2017[Electronically Signed on: 03/26/2017 07:50 EST] George Centeno DO, D.O.[Verified on: 03/26/2017 07:50 EST] George Centeno DO, D.O.[Transcribed on: 03/19/2017 13:00 EST]GDU [facility] Test Urine 1on U Preg Negative [facility] Comment on above: Result Comment: Prieto Lizama 03/19/2017 09:03:33 EST Performed By: #### 3 [id number] ####[facility] (DEFAULT)[address] [place] [address] U Preg Internal Control Pass [facility] Comment on above: Performed By: #### 3 [id number] ####[facility] (DEFAULT)[address] [place] [address] 40[address] Progress Note - Nurseon 02-28 Progress Note - Nurse Preop call completed, patient arriving at 0700 on 03/19/17....preop instructions reviewed[Electronically Signed on: 03/18/2017 13:08 EST] Loren Chaves RN[Verified on: 03/18/2017 13:08 EST] Loren Chaves RN [facility] History and Physicalon 02-11 History and Physical [id number][facility]1.00[facility] - Surgeon/P pinky 02-11-2017 Operative Report - Surgeon/Physician [id number]#1.00[facility] Provider Orderson 02-11-2017 Provider Orders [id number]#1.00[facility] MAGR Preoperative Recordon 1 MAGR Preoperative Record MAGR Pre-Op Record Summary Primary Physician: George Centeno DO Finalized Date/Time: 02/07/17 10:42:56 Pt. Name: MILENA CARTY/Sex: 1980 FEMALE Med Rec #: [id number] Physician: George Centeno DO Financial #: [id number] Pt. Type: D Room/Bed: / Admit/Disch: 01/22/17 06:06:27 - 01/22/17 10:55:00 Institution: Pre-Op Case Times MAGR Pre-Care Text: Patient will be optimally prepared for surgery. Patient is free from s/s of injury. Provide information to patient/family related to plan of care. Verify patient allergies. Confirm identity and verify consent before the operative or invasive procedure. Entry 1 Patient Arrival Time 01/22/17 06:15:00 Preop Departure 01/22/17 07:54:00 Last Modified By: Joanne Rollins RN 02/07/17 10:42:54 Post-Care Text: Patient is prepared mentally and physically and is ready for surgery. The patient remains free from s/s of injury. Patient/family express understanding of plan of care and participate in decisions affecting his or her perioperrative plan of care. Allergies documented appropriately. Patient identifiers and consent correct. General Comments: Pt arrives to w ambulatory. Pt denies any pain, cp, sob, cough or flu like symptoms. Pt denies pacemaker/defibillator or sleep apnea. Finalized By: Joanne Rollins RN Document Signatures Signed By: Joanne Rollins RN 02/07/17 10:42 [facility] MAGR Intraoperative Recordon 01-29-2017 MAGR Intraoperative Record MAGR Intra-Op Record Summary Primary Physician: George Centeno DO Finalized Date/Time: 01/29/17 12:54:01 Pt. Name: CARLOZ MILENAMIGUEL ANGEL Holder/Sex: 1980 FEMALE Med Rec #: [id number] Physician: George Centeno DO Financial #: [id number] Pt. Type: D Room/Bed: / Admit/Disch: 01/22/17 06:06: - 01/22/17 10:55:00 Institution: Case Times MAGR Entry 1 Patient In Room Time 01/22/17 07:57:00 Out Room Time 01/22/17 09:20:00 Anesthesia Start Time 01/22/17 07:57:00 Stop Time 01/22/17 09:20:00 Surgery Start Time 01/22/17 08:23:00 Stop Time 01/22/17 09:12:00 Last Modified By: Valencia Johnson RN 01/22/17 12:14:54 Case Attendance MAGR Entry 1 Entry 2 Entry 3 Case Attendee George Centeno DO, John M MD Sofiak, Brittany F RN Role Performed Surgeon - Primary Anesthesiologist of New Car Get Ready Mechanic Record Time In 01/22/17 07:57:00 01/22/17 07:57:00 01/22/17 07:57:00 Time Out 01/22/17 09:20:00 01/22/17 09:20:00 01/22/17 09:20:00 Procedure Laparoscopy Diagnostic Laparoscopy Diagnostic Laparoscopy Diagnostic Last Modified By: Valencia Johnson RN, Stephanie RN Sauer, Stephanie RN 01/22/17 12:14:56 01/22/17 12:14:56 01/22/17 12:14:56 Entry 4 Entry 5 Entry 6 Case Attendee Valencia Johnson RN, Lauren M CST Nikolaus, Linda M Role Performed New Car Get Ready Mechanic Scrub Personnel Air Sampling And Monitoring Time In 01/22/17 07:57:00 01/22/17 07:57:00 01/22/17 07:57:00 Time Out 01/22/17 09:20:00 01/22/17 09:20:00 01/22/17 09:20:00 Procedure Laparoscopy Diagnostic Laparoscopy Diagnostic Laparoscopy Diagnostic Last Modified By: Valencia Johnson RN, Stephanie RN Sauer, Stephanie RN 01/22/17 12:14:56 01/22/17 12:14:56 01/22/17 12:14:56 Surgical Procedures MAGR Pre-Care Text: A.20 Verifies operative procedure, surgical site, and laterality Im.150 Develops individualized plan of care Entry 1 Procedure Laparoscopy Diagnostic Primary Procedure Yes Primary Surgeon George Centeno DO Surgeon Comment DX LAPAROSCOPY Start 01/22/17 08:23:00 Stop 01/22/17 09:12:00 Anesthesia Type General Surgical Service Gynecology Wound Class Clean Last Modified By: Milagro Isaacs RN 01/29/17 12:53:53 Post-Care Text: O.730 The patient's care is consistent with the individualized perioperative plan of care General Case Data MAGR Pre-Care Text: A.350.1 Classifies surgical wound Entry 1 Case Information OR MAGR OR 01 Case Level Level 4 Wound Class Clean Specialty Gynecology ASA Class 2 Diagnosis Preop Diagnosis PELIVC PAIN Postop Same As Preop Yes Postop Diagnosis PELIVC PAIN Last Modified By: Milagro Isaacs RN 01/29/17 12:54:00 Post-Care Text: O.760 Patient receives consistent and comparable care regardless of the setting Time Out MAGR Entry 1 Time out date/time 01/22/17 08:20:00 All team members Yes have introduced themselves by name and role Surgeon, Yes Surgeon reviews Yes anesthesia, nurse critical or confirm patient, unexpected steps, site, procedure operative duration, anticipated blood loss Anesthesia team Yes Nursing team Yes reviews any reviews sterility patient-specific (including concerns indicator results) and equipment issues/concerns Antibiotic N/A Is essential Yes prophylaxis given imaging displayed? within the last 60 minutes Last Modified By: Valencia Johnson RN 01/22/17 08:24:08 Patient Positioning MAGR Pre-Care Text: A.280 Identifies baseline musculoskeletal status Im.40 Positions the patient Im.80 Applies safety devices Entry 1 Procedure Laparoscopy Diagnostic Body Position Low Lithotomy Left Arm Position Extended on padded arm Right Arm Position Extended on padded arm board board Left Leg Position Secured in Stirrup Right Leg Position Secured in Stirrup Feet Uncrossed? Yes Press Points Checked Yes Positioning Device Safety Strap Outcome Met (O.80) Yes Last Modified By: Valencia Johnson RN 01/22/17 08:33:39 Post-Care Text: E.290 Evaluates musculoskeletal status O.80 Patient is free from signs and symptoms of injury related to positioning Skin Prep MAGR Pre-Care Text: A.30 Verifies allergies Im.270 Performs skin preparation Im.270.1 Implements protective measures to prevent skin and tissue injury due to chemical sources Entry 1 Skin Prep Syntegrity Prep Agents (Im.270) Povidone-Iodine, Prep By Milagro Isaacs RN Chlorhexidine Gluconate Prep Area (Im.270) Abdomen, Vagina and Skin Prep Agent Dry Yes perineum Without Pooling Hair Removal Syntegrity Hair Removal Methods No hair removal performed Outcome Met (O.100) Yes Last Modified By: Valencia Johnson RN 01/22/17 08:34:15 Post-Care Text: E.10 Evaluates for signs and symptoms of physical injury to skin and tissue O.100 Patient is free from signs and symptoms of chemical injury Counts Verification MAGR Pre-Care Text: A.20 Verifies operative procedure, surgical site, and laterality A.20.2 Assesses the risk for unintended retained foreign body Im.20 Performs required counts Entry 1 Procedure Laparoscopy Diagnostic Counts Verification Initial Counts Items included in Sponges, Sharps Initial Counts Milagro Isaacs the Initial Count Performed By Noah COOMBS Lauren M FLANGER Initial Count Time 01/22/17 07:20:00 Counts Verification Final Counts Items Included in Sponges, Sharps Final Count Status Correct Final Count Final Counts Milagro Isaacs Final Count Time 01/22/17 08:56:00 Performed By RNNoah Lauren M FLANGER Surgeon notified of Yes final counts status Outcome Met (O.20) Yes Last Modified By: Valencia Johnson RN 01/22/17 08:56:05 Post-Care Text: E.50 Evaluates results of the surgical count O.20 Patient is free from unintended retained foreign objects Patient Care Devices MAGR Pre-Care Text: A.200 Assesses risk for normothermia regulation A.40 Verifies presence of prosthetics or corrective devices Im.280 Implements thermoregulation measures Im.60 Uses supplies and equipment within safe parameters Entry 1 Entry 2 Equipment Type FORCED WARM AIR UNIT bilateral untermittent compression devices Serial ?# [id number] Equipment Setting 43 degrees default Last Modified By: Valencia Johnson RN, Stephanie RN 01/22/17 08:36:50 01/22/17 08:36:50 Post-Care Text: E.10 Evaluates signs and symptoms of physical injury to skin and tissue O.700 Patient is free from signs and symptoms of injury caused by extraneous objects [place] MAGR Pre-Care Text: A.240 Assesses baseline skin condition A.40 Verifies presence of prosthetics or corrective devices Im.50 Implements protective measures to prevent injury due to electrical sources Entry 1 ESU Type Electrosurgical Unit Identification 5952 Number ESU Settings Syntegrity Cut Setting 15 Coag Setting 15 Grounding Pad Details Grounding Pad Yes Verified By Milagro Isaacs RN Needed? Grounding Pad Site Table Grounding Pad Within Expiration Yes Date? Outcome Met (O.10) Yes Last Modified By: Valencia Johnson RN 01/22/17 08:37:45 Post-Care Text: E.10 Evaluates for signs and symptoms of physical injury to skin and tissue O.10 Patient is free from signs and symptoms of injury related to thermal sources Medication Administration MAGR Pre-Care Text: A.210 Identifies physiological status Im.220 Administers prescribed medications Entry 1 Time Administered 01/22/17 09:05:00 Medication 0.25% MARCAINE WITH EPI Route of Admin Incisional/Surgical Site Volume 20 mL By Nereyda Madisno Outcome Met (O.130) Yes Last Modified By: Valencia Johnson RN 01/22/17 09:05:39 Post-Care Text: E.20 Evaluates response to medications O.130 Patient receives appropriately administered medication(s) Dressing/Packing MAGR Pre-Care Text: A.350 Assesses susceptibility for infection Im.290 Administer care to wound sites Entry 1 Skin Prep Agent Yes Site Abdomen Removed Prior to Dressing? Wound closure Primary Dressing Item Details Tape (Im.290) Wound Closure Strip Outcome Met Yes Last Modified By: Valencia Johnson RN 01/22/17 08:38:29 Post-Care Text: E.200 Evaluates progress of wound healing O.200 Patient's wound perfusion is consistent with or improved from baseline levels Departure from OR MAGR Entry 1 Present on Depart Oxygen Via Stretcher Post-op Destination PACU Skin DFO Condition Intact Description Condition Warm Description Condition Dry Description Report Given To Lillie Main Airway Maintenance Patient Status Stable Oxygen in Use? Yes Airway Device Simple mask Flow Rate 15 L/min Last Modified By: Valencia Johnson RN 01/22/17 12:14:30 Case Comments Finalized By: Milagro Isaacs RN Document Signatures Signed By: Valencia Johnson RN 01/22/17 12:27 Valencia Johnson RN 01/22/17 12:15 Milagro Isaacs RN 01/29/17 12:54 Unfinalized History Date/Time Username Reason for Unfinalizing Freetext Reason for Unfinalizing 01/22/17 12:25 [email or web address] Modify Pick List 01/29/17 12:53 [email or web address] Correct Documentation [facility] Coding Summaryon 01-24-2017 Coding Summary CODING DATE: 017 [facility] STATUS: Home PAYOR: Commercial Insurance APC DESCRIPTION 5361 Level 1 Laparoscopy and Related Services ADMIT DX: REASON FOR VISIT DX: R10.2 Pelvic and perineal pain FINAL DX: PRINCIPAL: N83.201 Unspecified ovarian cyst, right side SECONDARY: 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 However, the narrative phrase printed from the coding software may appear abbreviated, or result in slightly different terminology. Coded By: Katelyn Robertson Date Saved: 01/24/2017 10:49 am [facility] Consent Formson 01-23-2017 Consent Forms [id number]#1.00[facility] Intraoperative [facility]on 2016 Intraoperative Note [id number]#1.00[facility] Intraoperative Note [id number]#1.00[facility] Medication Managementon 12-29 Medication Management [id number]#1.00[facility] Telemetry Stripson 7 Telemetry Strips [id number]#1.00[facility] Anesthesia Noteon 01-22-2017 Anesthesia Note Patient: MILENA CARTY : 37 years Sex: FEMALE : [birth year]Associated Diagnoses: NoneAuthor: Ventura Lui MDPostoperative InformationPost Operative NoteHealth StatusAllergies:Allergic Reactions (All)No Known Medication AllergiesProblem list (past medical history):All ProblemsHTN (hypertension) / SNOMED CT 8685330014 / ConfirmedPhysical ExaminationVS/MeasurementsVita l Signs (last 24 hrs) Last Charted Heart Rate Peripheral 66 bpm (JAN 22 06:40)Resp Rate 18 br/min (JAN 22 09:20)SBP 133 mmHg (JAN 22 09:20)DBP 78 mmHg (JAN 22 09:20)SpO2 100 % (JAN 22 09:20)AssessmentAnesthetic outcomeNo anesthetic complications noted.PlanTransfer/ Discharge: To home, Patient can be discharged from PACU when criteria met.[Electronically Signed on: 01/22/2017 09:29 EDT] Ventura Lui MD[Verified on: 01/22/2017 09:29 EDT] Ventura Lui MD [facility] Anesthesia Note Patient: MILENA CARTY : 37 years Sex: FEMALE : [birth year]Associated Diagnoses: NoneAuthor: Ventura Lui MDPreoperative InformationAnesthesia history: Patient history: No difficult intubation, No malignant hyperthermia. Family history: No malignant hyperthermia.Review of SystemsConstitutional: Negative.Respiratory: Negative, No shortness of breath.Cardiovascular: Negative, No chest pain.Gastrointestinal: No heartburn.Health StatusAllergies:Allergic Reactions (All)No Known Medication AllergiesCurrent medications:Home Medications (2) Activeibuprofen 800 mg oral tablet 800 mg = 1 tab(s), PRN, PO, TIDMetoprolol Succinate ER 50 mg oral tablet, extended release 50 mg = 1 tab(s), PO, DailyProblem list (past medical history):All ProblemsHTN (hypertension) / SNOMED CT 1177313109 / ConfirmedHistoriesFamily History:No family history items have been selected or recorded.Procedure history:Carpal tunnel release ([id number]).Comments:01/16/2017 13:22 - Joanne Rollins RNright sideCesarean section ([id number]).Comments:01/16/2017 13:23 - Joanne Rollins RNtimes 1Social History Alcohol Assessment Use: Current. 1-2 times per year Tobacco Assessment Comment: states uses the e-ciggs (throughout the day) Substance Abuse Assessment Substance use: Never..Social & Psychosocial DvlkdeTtoljtd27/20/2017 Alcohol Use: Current Frequency: 1-2 times per yearSubstance Abuse01/16/2017 Substance use: NeverTobacco Comment: states uses the e-ciggs (throughout the day) - 01/16/2017 13:26 - Joanne Rollins RN.Physical ExaminationVS/MeasurementsVita l Signs (last 24 hrs) Last Charted Heart Rate Peripheral 66 bpm (JAN 22 06:40)Resp Rate 16 br/min (JAN 22 06:40)SBP 114 mmHg (JAN 22 06:43)DBP 85 mmHg (JAN 22 06:43)SpO2 98 % (JAN 22 06:40)Review / ManagementLaboratory ResultsPlanAmerican Society of Anesthesiologists#(ASA) physical status classification: Class II.Anesthetic Preoperative PlanAnesthesia: General.. Anesthetic plan, risks, benefits, and alternatives discussed with the patient and/or family. Patient verbalized understanding.[Electronically Signed on: 01/22/2017 07:38 EDT] Ventura Lui MD[Verified on: 01/22/2017 07:38 EDT] Ventura Lui MD Normal [facility] Standardon 01-22-2017 eGFR (non-black) mL/min/{1.73_m2} Invalid Interpretation Code [facility] Comment on above: Performed By: #### 1 [id number] ####[facility] (DEFAULT)[address] [place] [address] Result Comment: Rn Building berna Kidney disease could be indicated at eGFRs of less than 60 ml/min/1.73m2. Kidney Failure is indicated at less than 15 ml/min/1.73m2 Anion gap 11.0 mmol/L Normal 5.0-19.0 [facility] Comment on above: Performed By: #### 1 [id number] ####[facility] (DEFAULT)[address] [place] [address] 78634 BUN/Creatinine Ratio 26.0 mg/mg High 4.6-16.2 [facility] Comment on above: Performed By: #### 1 [id number] ####[facility] (DEFAULT)[address] [place] [address] 24856 Calcium 9.1 mg/dL Normal 8.9-10.3 [facility] Comment on above: Performed By: #### 1 [id number] ####[facility] (DEFAULT)[address] [place] [address] 04014 Chloride 107 mmol/L Normal 101-111 [facility] Comment on above: Performed By: #### 1 [id number] ####[facility] (DEFAULT)[address] [place] [address] 88470 CO2 24 mmol/L Normal 21-32 [facility] Comment on above: Performed By: #### 1 [id number] ####[facility] (DEFAULT)[address] [place] [address] 97499 Creatinine 0.81 mg/dL Normal 0.60-1.30 [facility] Comment on above: Performed By: #### 1 [id number] ####[facility] (DEFAULT)[address] [place] [address] 50559 Glucose mass conc 106.0 mg/dL Normal 74.0-118.0 [facility] Comment on above: Performed By: #### 1 [id number] ####[facility] (DEFAULT)[address] [place] [address] 96269 Osmolality 279 mOsm/L Invalid Interpretation Code [facility] Comment on above: Performed By: #### 1 [id number] ####[facility] (DEFAULT)[address] [place] [address] Potassium molar conc 4.2 mmol/L Normal 3.6-5.1 [facility] Comment on above: Performed By: #### 1 [id number] ####[facility] (DEFAULT)[address] [place] [address] Sodium 138.0 mmol/L Normal 136.0-144.0 [facility] Comment on above: Performed By: #### 1 [id number] ####[facility] (DEFAULT)[address] [place] [address] Urea nitrogen 21 mg/dL Normal 12-22 [facility] Comment on above: Performed By: #### 1 [id number] ####[facility] (DEFAULT)[address] [place] [address] Inpatient Clinical Summaryon 01-22-2017 Inpatient Clinical Summary [facility] SURGERYClinical Discharge SummaryPERSON INFORMATIONName CARLOZ MILENA CARLOS Age 37 Years 81Sex FEMALE Language Divehi PCP Surekha NOBLES Status [id number] Acct# Arrival 01/22/17 06:06:27Visit Reason SURGERY - DX LAPAROSCOPY Acuity LOS 033 20:21Address:[address] [place] [id number]:PROVIDER INFORMATIONVITALS INFORMATIONVital Sign Triage LatestTemp OralTemp Temporal 36.3 DegC 36.3 DegCTemp IntravascularTemp AxillaryTemp [id number] Sat 97 % 92 %Respiratory Rate 16 br/min 18 br/minPeripheral Pulse Rate 83 bpm 66 bpmApical Heart RateBlood Pressure 124 mmHg / 82 mmHg 123 mmHg / 88 mmHgComment:MEDICAL INFORMATIONAllergy Info:No Known Medication AllergiesPrescriptions Given:Prescription Displayacetaminophen-hydrocodo ne ([place]ford 5 mg-325 mg oral tablet) 1 tab(s), PO, q6hr, Instructions: may take 1 or 2 tablets not to exceed 8 tablets/day, PRN: for pain, # 12 tab(s), 0 Refill(s)Home Meds Displayibuprofen (ibuprofen 800 mg oral tablet) 1 tab(s) ( 800 mg ), PO, TID, PRN: for painmetoprolol (Metoprolol Succinate ER 50 mg oral tablet, extended release) 1 tab(s) ( 50 mg ), PO, DailyMedication List:Fill New Prescriptions:acetaminophen-hy drocodone (Waterford 5 mg-325 mg oral tablet) 1 tab(s) Oral Every 6 hours as needed for for pain may take 1 or 2 tabletsnot to exceed 8 tablets/dayContinue These Medications:ibuprofen (ibuprofen 800 mg oral tablet) 800 mg Oral 3 times a day as needed for for painmetoprolol (Metoprolol Succinate ER 50 mg oral tablet, extended release) 50 mg Oral every dayComment:Lab and Radiology ResultsLaboratory or Other Results This Visit (last charted value for your 01/22/2017 visit) Chemistry 01/22/2017 6:54 AM Creatinine Level: 0.81 mg/dL -- Normal range between ( 0.60 and 1.30 ) BUN: 21 mg/dL -- Normal range between ( 8 and 26 ) Chloride Level: 107 mmol/L -- Normal range between ( 101 and 111 ) CO2: 24 mmol/L -- Normal range between ( 21 and 32 ) Glucose Level: 106.0 mg/dL -- Normal range between ( 74.0 and 118.0 ) Osmolality: 279 mOsm/L Potassium Level: 4.2 mmol/L -- Normal range between ( 3.6 and 5.1 ) Sodium Level: 138.0 mmol/L -- Normal range between ( 136.0 and 144.0 ) Anion Gap: 11.0 mmol/L -- Normal range between ( 5.0 and 19.0 ) Calcium Level: 9.1 mg/dL -- Normal range between ( 8.9 and 10.3 ) BUN/Creat Ratio: 26.0 -- Normal range between ( 4.6 and 16.2 ) eGFR AA: >60 mL/min/1.73m2 eGFR Non AA: >60 mL/min/1.73m2 01/22/2017 6:15 AM U Preg: NegativeDIET & ACTIVITYPatient Activity Level:Patient Diet:Patient Activity Restrictions:DISCHARGE INFORMATIONDischarge Disposition:Discharge Location:DEPART REASON INCOMPLETE INFORMATIONPATIENT EDUCATION INFORMATIONInstructions:Diagno stic Laparoscopy, Care After - Dr Centeno (MHKHARRISON)Follow up:With: Address: When:George Centeno [address] [place] [address] Business (1) In 2 weeks 02/05/17Comments:Call for follow up appointmentWith: Address: When:SEN NOBLES [address] [place] [address] [phone] Business (1)DIAGNOSISPelvic painComment:PHYS DOC NOTES Normal [facility] Inpatient Patient Summaryon 01-22-2017 Inpatient Patient Summary [place] [id number] Patient Discharge InstructionsName: MILENA CARTYOB: 82 Address: [address] [place], [place] [id number] Care Provider:Name: SEN NOBLESPhone: Discharge Diagnosis: Pelvic painIf you received any narcotics, sedation, or any other medication that causes drowsiness for the next 24 hours, unless otherwise directed:? Do not drive a car.? Do not operate machinery such as power tools, lawn mowers, drills, sewing machines, or stoves? Avoid alcoholic beverages and drugs for allergies, nerves, or sleep? Do not make important personal or business decisions or sign any legal documentsPrem[facility] Health [facility] would like to thank you for allowing us to assist you with your healthcare needs. The following includes patient education materials and information regarding your injury/illness.MILENA CARTY has been given the following list of follow-up instructions, prescriptions, and patient education materials:Follow-up InstructionsWith: Address: When:George Centeno [address] [place] [address] Business (1) In 2 weeks 02/05/17Comments:Call for follow up appointmentWith: Address: When:SEN NOBLES [address] [place] [address] [phone] Business (1)MedicationsDuring the course of your visit, your medication list was updated with the most current information. The details of those changes are reflected below:New MedicationsPrinted Prescriptionsacetaminophen-hyd rocodone (Waterford 5 mg-325 mg oral tablet) 1 tab(s) Oral Every 6 hours as needed for pain. may take 1 or 2 tabletsnot to exceed 8 tablets/day. Refills: 0.Medications to Continue That Have Not ChangedOther Medicationsibuprofen (ibuprofen 800 mg oral tablet) 1 tab(s) Oral 3 times a day as needed for pain.metoprolol (Metoprolol Succinate ER 50 mg oral tablet, extended release) 1 tab(s) Oral every day.It is important to always keep an active list of medications available so that you can share with other providers and manage your medications appropriately. As an additional courtesy, we are also providing you with your final active medications list that you can keep with you.acetaminophen-hydrocodone (Waterford 5 mg-325 mg oral tablet) 1 tab(s) Oral Every 6 hours as needed for pain. may take 1 or 2 tabletsnot to exceed 8 tablets/day. Refills: 0.ibuprofen (ibuprofen 800 mg oral tablet) 1 tab(s) Oral 3 times a day as needed for pain.metoprolol (Metoprolol Succinate ER 50 mg oral tablet, extended release) 1 tab(s) Oral every day.Take only the medications listed above. Contact your doctor prior to taking any medications not on this list.Diet & ActivityPatient Activity Level:Patient Diet:Patient Activity Restrictions:Comment:Patient education materials, if any, will display belowDiagnostic Laparoscopy, Care AfterRefer to this sheet in the next few weeks. These instructions provide you with information about caring for yourself after your procedure. Your health care provider may also give you more specific instructions. Your treatment has been planned according to current medical practices, but problems sometimes occur. Call your health care provider if you have any problems or questions after your procedure.WHAT TO EXPECT AFTER THE PROCEDUREAfter your procedure, it is common to have mild discomfort in the throat and abdomen.HOME CARE INSTRUCTIONS? Take xvgw-kqb-ulzubpb and prescription medicines only as told by your health care provider.? Do not drive for 48 hours or while still taking narcotic pain medications? Walk daily and frequently throughout the day. No heavy exercise until after 2 weeks postoperativley? Do not take baths, swim, or use a hot tub until your health care provider approves. You may shower daily ? Follow instructions from your health care provider about how to take care of your incision. Make sure you:? Wash your hands with soap and water before you change your bandage (dressing). If soap and water are not available, use hand crystal flat grinder.? Change your dressings (Band Aids) daily after shower.? Leave adhesive strips in place until they peel off partially then remove them.? Check your incision area every day (with just washed or sanitized hands only), for signs of infection.? More redness, swelling, or pain.? More fluid or blood.? Warmth. ? Pus or a bad odor Shoulder pain may occur after surgery occassionaly. Increased walking and pain medicine will help ease this and pain will resolve within 12 hours.SEEK MEDICAL CARE IF:? You feel light-headed or faintness unrelated to pain medication usage? You are unable to pass gas or unable to have a bowel movement.? You feel nauseous or you vomit.? You develop a rash.? You have more redness, swelling, or pain around your incisions? You have more fluid or blood coming from your incisions.? You have pus or a bad odor coming from your incisions? You have a fever or chills.SEEK IMMEDIATE MEDICAL CARE IF:? Your pain is getting worse.? You have ongoing vomiting.? The edges of your incision open up.? You have trouble breathing.? You have chest pain.This information is not intended to replace advice given to you by your health care provider. Make sure you discuss any questions you have with your health care provider.Document Released: 03/26/2016 Document Reviewed: 03/26/2016Elsevier Interactive Patient Education ?2016 [employer] Viruses or BacteriaWhat?s got you sick?Antibiotics only treat bacterial infections. Viral illnesses cannot be treated with antibiotics. When an antibiotic is not prescribed, ask your healthcare professional for tips on how to relieve symptoms and feel better. Usual CauseIllnessVirusesBacteria Antibiotic NeededCold/Runny Nose NOBronchitis/Chest Cold (in otherwise healthy children and adults) NOWhooping Cough YesFlu NOStrep Throat YesSore Throat (except strep) NOFluid in the middle ear (otitis media with effusion) NOUrinary Tract Infection YesAntibiotics Aren?t Always the Answerwww.cdc.gov/getsmart GET SMART Know When Antibiotics [place]ista.[place] Department of Health and Human ServicesCenters for Disease Control and Prevention December 2013 [facility] PACU Recordon 7 MAGR PACU Record MAGR PACU Record Yoandy brush Primary Physician: George Centeno DO Finalized Date/Time: 01/22/17 10:25:13 Pt. Name: MILENA CARTY/Sex: 1980 FEMALE Med Rec #: [id number] Physician: George Centeno DO Financial #: [id number] Pt. Type: D Room/Bed: / Admit/Disch: 01/22/17 06:06:27 - Institution: PACU Case Times MAGR Entry 1 In PACU I 01/22/17 09:20:00 Discharge from PACU 01/22/17 09:42:00 I Last Modified By: Lillie Main 01/22/17 09:57:30 General Comments: ARRIVES TO PACU I DROWSY, AROUSES TO VERBAL STIM,VSS. HEART MONITOR SHOWS RSR WITHOUT ECTOPICS. PT COUGHS AND DEEP BREATHES NON PRODUCTIVE, AND DORSIPLANTAR FLEX AND EXTENDS WITH REMINDER. ABD IS SOFT FLAT WITH ACTIVE BS AND DENIES PAIN. KATERYNA PAD IS DRY AND INTACT. TAKES ICE CHIPS WITHOUT DIFF. TRANSPORTED TO PACU II AND CARE CONT PER MYSQL DBA. Finalized By: Lillie Main Document Signatures Signed By: Lillie Main 01/22/17 10:25 [facility] MAGR Postoperative Recordon 01-22-2017 MAGR Postoperative Record MAGR Phase II Record Summary Primary Physician: George Centeno DO Finalized Date/Time: 01/22/17 11:05:19 Pt. Name: MILENA CARTY D.O.B./Sex: 1980 FEMALE Med Rec #: [id number] Physician: George Centeno DO Financial #: [id number] Pt. Type: D Room/Bed: / Admit/Disch: 01/22/17 06:06:27 - Institution: Phase II Case Times MAGR Pre-Care Text: Patient is free from s/s of injury. Patient remains free from compromised physical state related to surgery or anesthesia. Patient comfort maintained. Patient/family verbalize understanding of discharge instructions. Entry 1 In PACU II 01/22/17 09:45:00 Discharge from PACU 01/22/17 10:46:00 II Last Modified By: Lillie Main 01/22/17 10:46:54 Post-Care Text: The patient remains free from s/s of injury. Patient's vital signs stable, circulation maintained, return to preop mental and physical status, opsite/dressing intact, minimal or absent nausea and vomiting, tolerates po intake. Patient verbalizes adequate pain control. Patient/family express understanding of discharge instructions. General Comments: 0945 ARRIVES TO PACU II AWAKE, AlERT, VSS AND EATING ICE CHIPS. DENIES ABD DISCOMFORT, PERIPAD IS DRY. COUGHS AND DEEP BREATHES WITH ENC/NON PRODUCTIVE. DORSIPLANTAR FLEX AND EXTENDS WITH REMINDER.TAKES FLUIDS AND FOOD WITHOUT DIFF. DISCHARGE INSTRUCTIONS REVIEWED WITH PT AND WHO DENY QUESTIONS. PRESCRIPTION FAXED TO OP PHARMACY. UP TO BR WITH MIN ASSIST, REBA WELL, URINATES WITHOUT DIFF AND CONT TO DENY DISCOMFORT. PT IS DAMP FROM SWEAT AND STATES THIS IS USUAL AND ONGOING FOR HER. ALSO STATES HAS FREQ HOT FLASHES . INSTRUCTED HER TO DISCUSS THIS ISSUE WITH DR CENTENO AT FOLLOWUP VISIT. SHE AGREES.DISCHARGED PER WC TO PRIVATE CAR DRIVEN PER , INSTRUCTIONS AND PRESCRIPTION IN HAND. Finalized By: Lillie Main Document Signatures Signed By: Lillie Main 01/22/17 11:05 [facility] Operative Report - Surgeon/P pinky 01-22-2017 Operative Report - Surgeon/Physician DATE OF PROCEDURE: 01/22/2017PREOPERATIVE DIAGNOSIS: Pelvic pain.POSTOPERATIVE DIAGNOSIS: Pelvic pain. Right ovarian cyst, frozen uterus.PROCEDURE: Diagnostic laparoscopy, operative laparoscopy, right ovariancystectomy.ANESTHESIA: General by Ventura Lui M.D.FINDINGS: Uterus fixed to the anterior abdominal wall broadly andcompletely; left ovary within normal limits; left fallopian tube tortuouslyadhesed to the ovary; right ovary with 2 cm ovarian cyst bulbous inappearance; right fallopian tube is within normal limits. Straw-colored rightcyst fluid noted.ESTIMATED BLOOD LOSS: 25 ccCOMPLICATIONS: None.URINE OUTPUT: The patient emptied bladder just prior to surgery.PROCEDURE NOTE: The patient was taken to the operating room where she wasplaced in the supine position and given general anesthesia. After adequateanesthesia, she was placed into the dorsolithotomy position and was thenprepped and draped in the normal sterile fashion. Next, a weighted speculumwas placed in the patient's vagina and the anterior aspect of the cervix wasthen grasped with a single tooth tenaculum. An acorn uterine manipulator wasthen advanced into the cervix to provide a mean to manipulate the uterus.The speculum was then removed from the vagina. Attention was then turned tothe patient's abdomen where a 12 mm skin incision was made in theinfraumbilical fold. The Veress needle was then carefully introduced into theperitoneal cavity at a 45 degree angle while tenting the abdominal wall.Intraperitoneal placement was confirmed by a use of a water filled syringeand a drop in the intra-abdominal pressure with the insufflation with CO2gas. The trocar and sleeve were advanced without difficulty into the abdomenwhere placement was confirmed by the laparoscope. The pneumoperitoneum wasthen obtained with approximately 3 and a half liters of CO2 gas and the 10 mmtrocar and sleeve were advanced where placement was confirmed by thelaparoscope. A second skin incision was then made 2 cm above the pubicsymphysis in the right lower quadrant. The second trocar and sleeve (5 mm)was then advanced under direct visualization. A third skin incision was thenmade 2 cm above the pubic symphysis in the left lower quadrant. The thirdtrocar and sleeve (5 mm) was then advanced under direct visualization. Asurvey of the patient's pelvis and abdomen revealed the uterus broadly basedand completed adhesed to the anterior abdominal wall, fixed (frozen uterus).The left tube was tortuously attached to the left ovary which was otherwisenormal. The right ovary had a cyst bulbous in nature approximately 2 cm indiameter. Next, the needle aspirator was placed through the second trocarsite and straw-colored fluid was removed from the right ovarian cyst. Nowthe deflated cyst wall was then grasped with the bicoag cutting forceps andthe cyst wall was methodically removed. Bleeding noted at the site of theremaining portion of the ovary was then electrocauterized with the bicoagforceps until hemostasis was obtained. Blood in the cul-de-sac was noted andStryker senior financial accountant was then placed into the second trocar site and flushed andsuctioned to remove the small amount of blood loss, approximately 25 cc. Allinstruments were then removed from the patient's abdomen and the incisionswere repaired with O Vicryl at the fascial level and 3-0 Vicryl in asubcuticular manner. The acorn uterine manipulator was then removed from thevagina with no bleeding noted from the cervix. The patient tolerated theprocedure well. Sponge, lap, needle and instrument counts were correct x2.The patient was then to the recovery room awake and in stable condition.SHAMIR Paul #: [id number]: 01/22/2017T: 01/22/2017[Electronically Signed on: 01/22/2017 12:53 EDT] George Centeno DO, D.O.[Verified on: 01/22/2017 12:53 EDT] George Centeno DO, D.O.[Transcribed on: 01/22/2017 11:14 EDT]GDU [facility] Test Urine 1on U Preg Negative [facility] Comment on above: Result Comment: Nega tive Performed By: #### [id number] ####[facility] (DEFAULT)[address] [place] [address] U Preg Internal Control Pass [facility] Comment on above: Result Comment: Pass Performed By: #### [id number] ####[facility] (DEFAULT)[address] [place] [address] Encounters Encounter Date Encounter Type Care Provider Facility Start: 08-27-2022 End: 08-28-[address] SEN NOBLES . Facility: Start: 07-03-2022 Encounter for genera l adult medical examination without abnormal findings DR SEN NOBLES . [facility] Start: 07-02-2022 End: 07-03-[address] SEN NOBLES . Facility:[facility] Start: 07-02-2022 End: 07-03-2022 Encounter for general adult medical examination without abnormal findings DR SEN NOBLES . Facility: Start: 04-17-2022 End: 04-17-[address] SEN NOBLES . Facility: Start: 03-19-2017 End: 03-19-2017 Ambulatory GEORGE CENTENO Facility:[facility] Start: 03-14-2017 Ambulatory GEORGE CENTENO Facility: [facility] Start: 01-22-2017 End: 01-22-2017 Ambulatory GEORGE CENTENO Facility:[facility] Start: 01-17-2017 End: 01-17-2017 [facility] Payers Date Payer Category Payer Private Health Insurance [id number] 1980 Unknown [id number] 1980 Unknown [id number] 1980 Unknown [id number] 1958 Private Health Insurance [id number] 1958 Unknown [id number] Summary Purpose Family History No Family History Records FoundNo Family History Records Found Advance Directives No Advanced Directives Records FoundNo Advanced Directives Records Found Additional Source Comments INFORMATION SOURCE (unrecogn ized section and content) DATE CREATED AUTHOR 10/15/2017 [facility] DATE CREATED AUTHOR AUTHOR'S ORGANIZ ATION 08/31/2022 [facility] FOR RECORDS PERTAINING TO PATIENTS WHO ARE OR HAVE BEEN ENROLLED IN A CHEMICAL DEPENDENCY/SUBSTANCEABUSE PROGRAM, SOME INFORMATION MAY BE OMITTED. This clinical summary was aggregated from multiple sources. Caution should be exercised in using it in the provision of clinical care. This summary normalizes information from multiple sources, and as a consequence, information in this document may materially change the coding, format and clinical context of patient data. In addition, data may be omitted in some cases. CLINICAL DECISIONS SHOULD BE BASED ON THE PRIMARY CLINICAL RECORDS. [facility]. provides no warranty or guarantee of the accuracy or completeness of information in this document.
[2023-08-17 06:51] LABS: Basophils Absolute Auto 0.1 10^3/uL (0.0-0.1); Eosinophils Absolute Auto 0.1 10^3/uL (0.0-0.7); Eosinophils Percent Auto 1.7 % (0.9-7.0); Hematocrit 40.9 % (36.0-48.0); Hemoglobin 13.6 g/dL (12.0-16.0); Immature Granulocytes Abs Auto 0.06 10^3/uL (0.00-0.03); Immature Granulocytes Pct Auto 0.8 % (0.0-0.5); Lymphocytes Absolute Auto 1.8 10^3/uL (1.2-3.8); Lymphocytes Percent Auto 25.3 % (20.5-60.0); Mean Corpuscular HGB Conc 33.3 g/dL (29.9-35.2); Mean Corpuscular Hemoglobin 28.9 pg (26.7-34.0); Monocytes Absolute Auto 0.6 10^3/uL (0.3-0.8); Monocytes Percent Auto 8.3 % (1.7-12.0); Neutrophils Absolute Auto 4.4 10^3/uL (1.4-6.5); Neutrophils Percent Auto 62.9 % (43.0-75.0); Platelet Count 314 10^3/uL (150-450); Red Cell Distribution Width 12.6 % (11.0-15.0); White Blood Count 7.1 10^3/uL (4.0-11.0)
[2023-08-17 07:43] LABS: Estimated Average Glucose 108 mg/dL; Glycohemoglobin A1C 5.4 % (4.5-6.2)
[2023-08-17 07:56] LABS: Alanine Aminotransferase 30 U/L (14-59); Albumin Globulin Ratio 1.1; Albumin Level 3.9 g/dL (3.4-5.0); Alkaline Phosphatase 62 U/L (46-116); Anion Gap 15.3; Aspartate Amino Transferase 20 U/L (15-37); Bilirubin Total 0.8 mg/dL (0.2-1.0); Calcium 9.6 mg/dL (8.5-10.1); Carbon Dioxide 25.9 mmol/L (21.0-32.0); Chloride 103 mmol/L (98-107); Chol HDL Ratio 2.8; Cholesterol 173 mg/dL (<=200); Estimated GFR (African America 59 (>=60); Estimated GFR (Non-African Ame 49 (>=60); Free T3 2.49 pg/mL (2.18-3.98); Globulin 3.7 g/dL; Glucose 99 mg/dL (74-106); HDL Cholesterol 61 mg/dL (40-60); Potassium 4.2 mmol/L (3.5-5.1); Sodium 140 mmol/L (136-145); Thyroid Stimulating Hormone 1.779 uIU/mL (0.358-3.740); Total Protein 7.6 g/dL (6.4-8.2); Triglycerides 78 mg/dL (<=150); VLDL CHOLESTEROL 15.6 mg/dL
[2023-08-18 12:07] LABS: Insulin 15.4 uIU/mL (2.6-24.9)
== END 2023-08-17 06:32 | disposition home or self-care (01) ==
LOC: LAB 06:33
PROVIDERS: PCP Family Medicine; Visit Provider Family Medicine
DX: Z00.00 Encounter for general adult medical examination without abnormal findings (principal); E78.5 Hyperlipidemia, unspecified; R73.09 Other abnormal glucose
CPT/HCPCS: 36415; 80053; 80061; 83036; 83525; 84436; 84443; 84481; 85025

== ENCOUNTER 2023-10-24 18:42 | Outpatient (REF) | payer BC, SELFPAY | END 2023-10-24 18:43 | disposition home or self-care (01) | LOC: LAB 18:42 | PROVIDERS: PCP Family Medicine; Visit Provider Obstetrics & Gynecology | DX: Z01.419 Encounter for gynecological examination (general) (routine) without abnormal findings (principal) | CPT/HCPCS: 87624; 88175 ==

== ENCOUNTER 2024-02-11 07:32 | Outpatient (OUT) | payer BC, SELFPAY ==
--- OUTSIDE RECORDS SUMMARY | 2024-02-11 07:36 | XMS_ITS | CCD ---
Author Organization [facility] Care Team Providers Care Occupational Therapy Program Director Name Role Phone TARYN, GEORGE Unavailable Unavailable TARYN, GEORGE Unavailable Unavailable HOY, SEN Unavailable Unavailable Maximiliano Cason Unavailable Unavailable TARYN, GEORGE Unavailable Unavailable TARYN, GEORGE Unavailable Unavailable HOY, SEN Unavailable Unavailable TARYN, GEORGE Unavailable Unavailable TARYN, GEORGE Unavailable Unavailable HOY, SEN Unavailable Unavailable Gorty, Abiodun S Unavailable Unavailable TARYN, GEORGE Unavailable Unavailable TARYN, GEORGE Unavailable Unavailable HOY, SEN Unavailable Unavailable CARLAY ., DR CHATTERJEE Attending Unavailable HOY ., DR CHATTERJEE Consulting Unavailable HOY ., DR CHATTERJEE Primary Care Unavailable HOY ., DR CHATTERJEE Admitting Unavailable HOY ., DR CHATTERJEE Attending Unavailable HOY ., DR CHATTERJEE Consulting Unavailable HOY ., DR CHATTERJEE Primary Care Unavailable HOY ., DR CHATTERJEE Admitting Unavailable ALCALDE, DR MAXIMILIANO Martin Consulting Unavailable HOY ., DR CHATTERJEE Primary Care Unavailable MORGAN ., DR COOPER Attending Unavailable MORGAN ., DR COOPER Consulting Unavailable MORGAN ., DR COOPER Admitting Unavailable ALLISON MORA Attending Unavailable MD Sen Still Primary Care Provider [phone] MD Juan Manuel Keith Jr Emergency Provider Sen Still Primary Care Unavailable Juan Manuel Keith Jr Attending Unavailable Juan Manuel Keith Jr Admitting Unavailable Allergies Allergy Classification Reported Allergen(s) Allergy Type Date of Onset Reaction(s) Facility (1 source) No Known Medication Allergies; Translations: [No Known Medication Allergies] Propensity to adverse reactions to drug (disorder) [facility] Repository Medications Current Medications Medication Drug Class(es) Dates Sig (Normalized) Sig (Original) fluconazole 150 mg oral tablet (1 source) Azole Antifungal Start: 01-17-2024 take 150 mg by mouth once daily Fluconazole Active 150 MG PO Daily January 17, 2024 12:00am Take after antibiotic course is complete. ibuprofen 600 mg oral tablet (1 source) Nonsteroidal Anti-inflammatory Drug Start: 02-12-2020 take 600 mg by mouth every eight hours Ibuprofen Active 600 MG PO Q8H February 12, 2020 12:00am lisinopril 10 mg oral tablet (1 source) Angiotensin Converting Enzyme Inhibitor Start: 02-12-2020 take 10 mg by mouth once daily Lisinopril Active 10 MG PO Daily February 12, 2020 12:00am 24 hr metoprolol succinate 25 mg extended release oral tablet (1 source) beta-Adrenergic Kim Start: 02-12-2020 take 25 mg by mouth once daily Metoprolol Succinate Active 25 MG PO Daily February 12, 2020 12:00am nitrofurantoin, macrocrystals 25 mg / nitrofurantoin, monohydrate 75 mg oral capsule (1 source) Nitrofuran Antibacterial Start: 01-17-2024 take 1 capsule by mouth every twelve hours at mealtime Nitrofurantoin Monohyd/M-Cryst (Macrobid) 100 mg capsule Active 100 MG PO Q12H 10 January 17, 2024 12:00am administer with a meal/food; swallow whole; do not open, crush, dissolve , or chew phenazopyridine hydrochloride 200 mg oral tablet (1 source) Start: 01-17-2024 take 1 tablet by mouth three times daily Phenazopyridine (Pyridium) 200 mg tablet Active 200 MG PO Three times daily January 17, 2024 12:00am administer with a full glass of water with each meal Problems Active Problems Problem Classification Problem Date Documented Da te Episodic/Chronic Genitourinary symptoms and ill-defined conditions (1 source) Frequency of micturition; Translations: [Frequency of micturition] Onset: 01-17-2024 Episodic Mycoses (1 source) Candidiasis of vagina; Translations: [Candidiasis of vagina] 01-17-2024 Episodic Nonspecific chest pain (1 source) Atypical chest pain; Translations: [Other chest pain] 04-10-2023 Episodic Other screening for suspected conditions (not mental disorders or infectious disease) (5 sources) Encounter for screening mammogram for malignant neoplasm of breast; Translations: [Encounter for screening for malignant neoplasm of cervix] Onset: 04-17-2022 Episodic Unclassified (3 sources) CONTACT W/AND (SUSP) EXPOS COVID-19; Translations: [CONTACT W/AND (SUSP) EXPOS COVID-19] Onset: 08-30-2022 Urinary tract infections (1 source) Urinary tract infectious disease; Translations: [Urinary tract infection, site not specified] 01-17-2024 Episodic Past or Other Problems Problem Classification Problem Date Documented Date Episodic/Chronic Immunizations and screening for infectious disease (1 source) Encounter for screening for human papillomavirus (HPV); Translations: [ENC SCREENING HUMAN PAPILLOMAVIRUS] Onset: 04-25-2022 Episodic Unclassified (1 source) CONTACT W/AND (SUSP) EXPOS COVID-19; Translations: [CONTACT W/AND (SUSP) EXPOS COVID-19] Onset: 08-27-2022 Results Test Name Value Interpretation Reference Range Facility Bacteria [Presence] in Urine by AutomatedOrdered By: Juan Manuel Keith on 01-17-2024 Bacteria Auto Ql (U) Rare [HPF] None Seen [facility] Bilirubin Test strip Ql (U)O rdered By: Juan Manuel Keith on 01-17-2024 Bilirubin Ql (U) Negative Negative [facility] Color of Urine by AutoOrdere d By: Juan Manuel Keith on 01-17-2024 Color (U) Yellow Normal Yellow [facility] Comment on above: Order Comment: Name Collection Type:: Clean-Voided Midstream Performed By: #### U HCG, ADDONUAPLUS, CUU #### [facility] [address] [place] [address] [place] Dipstick and Microscopicon 0 01-17-2024 Bacteria,Urine Rare Normal None Seen [facility] Comment on above: Order Comment: Name Collection Type:: Clean-Voided Midstream Performed By: #### U HCG, ADDONUAPLUS, CUU #### [facility] [address] [place] [id number] [place] Bilirubin,Urine Negative Normal Negative [facility] Comment on above: Order Comment: Name Collection Type:: Clean-Voided Midstream Performed By: #### U HCG, ADDONUAPLUS, CUU #### [facility] [address] [place] [id number] [place] Glucose Ql (U) Normal Normal Normal [facility] Comment on above: Order Comment: Name Collection Type:: Clean-Voided Midstream Performed By: #### U HCG, ADDONUAPLUS, CUU #### [address] Hyaline Casts,Urine None Normal 0-8 [facility] Comment on above: Order Comment: Name Collection Type:: Clean-Voided Midstream Performed By: #### U HCG, ADDONUAPLUS, CUU #### [address] Mucus,Urine 1+ Critically abnormal [facility] Comment on above: Order Comment: Name Collection Type:: Clean-Voided Midstream Performed By: #### U HCG, ADDONUAPLUS, CUU #### [address] Nitrite,Urine Negative Normal Negative [facility] Comment on above: Order Comment: Name Collection Type:: Clean-Voided Midstream Performed By: #### U HCG, ADDONUAPLUS, CUU #### [address] Occult Blood,Urine Trace High Negative [facility] Comment on above: Order Comment: Name Collection Type:: Clean-Voided Midstream Performed By: #### U HCG, ADDONUAPLUS, CUU #### [address] RBC,Urine 50-100 High 0-4 [facility] Comment on above: Order Comment: Name Collection Type:: Clean-Voided Midstream Performed By: #### U HCG, ADDONUAPLUS, CUU #### [address] Specificy [place],Urine 1.035 High 1.001-1.030 [facility] Comment on above: Order Comment: Name Collection Type:: Clean-Voided Midstream Performed By: #### U HCG, ADDONUAPLUS, CUU #### [address] Squamous Epithelial Cell,Urine 10-19 High 0-2 [facility] Comment on above: Order Comment: Name Collection Type:: Clean-Voided Midstream Performed By: #### U HCG, ADDONUAPLUS, CUU #### [address] Urobilinogen,Urine Normal Normal Normal [facility] Comment on above: Order Comment: Name Collection Type:: Clean-Voided Midstream Performed By: #### U HCG, ADDONUAPLUS, CUU #### [address] WBC,Urine 20-49 High 0-4 [facility] Comment on above: Order Comment: Name Collection Type:: Clean-Voided Midstream Performed By: #### U HCG, ADDONUAPLUS, CUU #### [address] Epithelial cells.squamous [# /area] in Urine sediment by Automated countOrdered By: Juan Manuel Keith on 01-17-2024 Epithelial cells.squamous Auto (Urine sed) [#/Area] 10-19 [HPF] High 0-2 [facility] Erythrocytes [#/area] in Uri ne sediment by Automated countOrdered By: Juan Manuel Keith on 01-17-2024 RBC Auto (Urine sed) [#/Area] 50-100 [HPF] High 0-4 [facility] Glucose [Mass/volume] in Uri ne by Test stripOrdered By: Juan Manuel Keith on 01-17-2024 Glucose Test strip (U) [Mass/Vol] Normal mg/dL Normal [facility] HCG ( test) IA.rapi d Ql (U)Ordered By: Juan Manuel Keith on 01-17-2024 HCG ( test) Ql (U) Negative [facility] HCG,Urineon 01-17-2024 Beta HCG ( test) Ql (U) Negative Normal [facility] Comment on above: Order Comment: Name Collection Type:: Clean-Voided Midstream Result Comment: PERF ORMED BY: [place] [address] PATHOLOGIST HIM ANALYST JAZMINE ZAVALA M.D. Performed By: #### U HCG, ADDONUAPLUS, CUU #### [address] Hemoglobin Test strip Ql (U) Ordered By: Juan Manuel Keith on 01-17-2024 Hemoglobin Ql (U) Trace High Negative [facility] Hyaline casts [#/area] in Ur ine sediment by Automated countOrdered By: Juan Manuel Keith on 01-17-2024 Hyaline casts Auto (Urine sed) [#/Area] None [LPF] 0-8 [facility] Ketones [Presence] in Urine by Test stripOrdered By: Juan Manuel Keith on 01-17-2024 Ketones Ql (U) Negative Normal Negative [facility] Comment on above: Order Comment: Name Collection Type:: Clean-Voided Midstream Performed By: #### U HCG, ADDONUAPLUS, CUU #### [facility] [address] Leukocyte esterase [Presence ] in Urine by Test stripOrdered By: Juan Manuel Keith on 01-17-2024 Leukocyte esterase Test strip Ql (U) 4+ High Negative [facility] Comment on above: Order Comment: Name Collection Type:: Clean-Voided Midstream Performed By: #### U HCG, ADDONUAPLUS, CUU #### [facility] [address] [place] [address] [place] Leukocytes [#/area] in Urine sediment by Automated countOrdered By: Juan Manuel Keith on 01-17-2024 WBC Auto (Urine sed) [#/Area] 20-49 [HPF] High 0-4 [facility] Mucus [Presence] in Urine by AutomatedOrdered By: Juan Manuel Keith on 01-17-2024 Mucus Auto Ql (U) 1+ [LPF] Abnormal [facility] Nitrite Test strip Ql (U)Ord ered By: Juan Manuel Keith on 01-17-2024 Nitrite Ql (U) Negative Negative [facility] Protein [Mass/volume] in Uri ne by Test stripOrdered By: Juan Manuel Keith on 01-17-2024 Protein (U) [Mass/Vol] 20 mg/dL High Negative [facility] Comment on above: Order Comment: Name Collection Type:: Clean-Voided Midstream Performed By: #### U HCG, ADDONUAPLUS, CUU #### [facility] [address] [place] [address] [place] Specific gravity Test strip (U) [Rel density]Ordered By: Juan Manuel Keith on 01-17-2024 Specific gravity (U) [Rel density] 1.035 High 1.001-1.030 [facility] Urine Cultureon 01-17-2024 Bacteria identified Cx Nom (U) ORGANISM: Streptococcus anginosus (O:ISMA) Keiser Count 75,000 Organism Comments Organism not Routinely Tested for Susceptibilities PERFORMED BY: [place] [address] PATHOLOGIST HIM ANALYST JAZMINE ZAVALA M.D. Normal [facility] Comment on above: Performed By: #### U HCG, ADDONUAPLUS, CUU #### [facility] [address] [place] [address] Urine appearanceOrdered By: Juan Manuel Keith on 01-17-2024 Appearance (U) Cloudy Critically abnormal Clear [facility] Comment on above: Order Comment: Name Collection Type:: Clean-Voided Midstream Performed By: #### U HCG, ADDONUAPLUS, CUU #### [facility] [address] [place] [address] Urobilinogen Test strip (U) [Mass/Vol]Ordered By: Juan Manuel Keith on 01-17-2024 Urobilinogen (U) [Mass/Vol] Normal mg/dL Normal [facility] pH of Urine by Test stripOrd ered By: Juan Manuel Keith on 01-17-2024 pH (U) 6.0 [pH] Normal 5.0-9.0 [facility] Comment on above: Order Comment: Name Collection Type:: Clean-Voided Midstream Performed By: #### U HCG, ADDONUAPLUS, CUU #### [facility] [address] [place] [address] [place] Covid-19 PCR (CVDTBH)on SARS-CoV-2 (COVID-19) RNA JOHNNIE+probe Ql (Unsp spec) Not detected Normal NOT DETECTED [facility] Comment on above: Result Comment: This test is not yet approved or cleared by the [place] FDA. When there are no FDA-approved or cleared tests available, and other criteria are met, FDA can make tests available under an emergency access mechanism called an Emergency Use Authorization (EUA). The EUA for this test is supported by the [place] of Health and Human Service's (HHS's) declaration [...] SARS-CoV-2. Performed By: #### C VDTBH #### [facility] [address] [place] [address] Dr. Eb Sol INSULINon 07-03-2022 Insulin 25.2 uIU/mL Critically high 2.6-24.9 [facility] Comment on above: Performed By: #### I NSULIN #### [facility] [address] [place] [address] Dr. Eb Sol CBC AUTO DIFFon 07-02-2022 BASO # 0.1 103/ul Normal 0.0-0.1 [facility] Comment on above: Performed By: #### C BC #### [facility] [address] [place] [address] Dr. Eb Sol Basophils/100 WBC (Bld) 1.2 % Normal 0.2-2.0 [facility] Comment on above: Performed By: #### C BC #### [facility] [address] [place] [address] Dr. Eb Sol EO # 0.2 103/ul Normal 0.0-0.7 [facility] Comment on above: Performed By: #### C BC #### [facility] [address] [place] [address] Dr. Eb Sol Eosinophils/100 WBC (Bld) 3.0 % Normal 0.9-7.0 [facility] Comment on above: Performed By: #### C BC #### [facility] [address] [place] [address] Dr. Eb Sol Erythrocyte distribution width (RBC) [Ratio] 12.8 % Normal 11.0-15.0 [facility] Comment on above: Performed By: #### C BC #### [facility] [address] [place] [address] Dr. Eb Sol Hematocrit (Bld) [Volume fraction] 39.7 % Normal 36.0-48.0 [facility] Comment on above: Performed By: #### C BC #### [facility] [address] [place] [address] Dr. Eb Sol Hemoglobin (Bld) [Mass/Vol] 13.8 g/dL Normal 12.0-16.0 [facility] Comment on above: Performed By: #### C BC #### [facility] [address] [place] [address] Dr. Eb Sol IG # 0.04 10e3/ul Critically high 0.00-0.03 [facility] Comment on above: Performed By: #### C BC #### [facility] [address] [place] [address] Dr. Eb Sol IG % 0.6 % Critically high 0.0-0.5 [facility] Comment on above: Performed By: #### C BC #### [facility] [address] [place] [address] Dr. Eb Sol LYMPH # 1.7 103/ul Normal 1.2-3.8 [facility] Comment on above: Performed By: #### C BC #### [facility] [address] [place] [address] Dr. Eb Sol Lymphocytes/100 WBC (Bld) 26.2 % Normal 20.5-60.0 [facility] Comment on above: Performed By: #### C BC #### [facility] [address] [place] [address] Dr. Eb Sol MANUAL DIFF REQ NO Normal [facility] Comment on above: Performed By: #### C BC #### [facility] [address] [place] [address] [address] Eb Sol MCH (RBC) [Entitic mass] 29.3 pg Normal 26.7-34.0 [facility] Comment on above: Performed By: #### C BC #### [facility] [address] [place] [address] Dr. Eb Sol MCHC (RBC) [Mass/Vol] 34.8 g/dL Normal 29.9-35.2 [facility] Comment on above: Performed By: #### C BC #### [facility] [address] [place] [address] Dr. Eb Sol MCV (RBC) [Entitic vol] 84.3 fL Normal 81.0-99.0 [facility] Comment on above: Performed By: #### C BC #### [facility] [address] [place] [address] Dr. Eb Sol MONO # 0.6 103/ul Normal 0.3-0.8 [facility] Comment on above: Performed By: #### C BC #### [facility] [address] [place] [address] Dr. Eb Sol Monocytes/100 WBC (Bld) 9.1 % Normal 1.7-12.0 [facility] Comment on above: Performed By: #### C BC #### [facility] [address] [place] [address] Dr. Eb Sol NEUT # 3.9 103/ul Normal 1.4-6.5 [facility] Comment on above: Performed By: #### C BC #### [facility] [address] [place] [address] Dr. Eb Sol Neutrophils/100 WBC (Bld) 59.9 % Normal 43.0-75.0 [facility] Comment on above: Performed By: #### C BC #### [facility] [address] [place] [address] Dr. Eb Sol Platelet mean volume (Bld) [Entitic vol] 10.4 fL Normal 9.5-13.5 [facility] Comment on above: Performed By: #### C BC #### [facility] [address] [place] [address] [address] Eb Sol PLT 312 103/ul Normal 150-450 [facility] Comment on above: Performed By: #### C BC #### [facility] [address] [place] [address] [address] Eb Sol RBC 4.71 106/ul Normal 4.20-5.40 [facility] Comment on above: Performed By: #### C BC #### [facility] [address] [place] [address] [address] Eb Sol WBC 6.6 103/ul Normal 4.0-11.0 [facility] Comment on above: Performed By: #### C BC #### [facility] [address] [place] [address] [address] Eb Sol FREE THYROXINE INDEX T7on FTI 2.18 Normal 1.30-4.50 [facility] Comment on above: Performed By: #### L IPID, CMP, T7, TSH #### [facility] [address] [place] [address] Dr. Eb Sol T3U 32.0 % Normal 30.0-39.0 [facility] Comment on above: Performed By: #### L IPID, CMP, T7, TSH #### [facility] [address] [place] [address] [address] Eb Sol T4 [Mass/Vol] 6.80 ug/dL Normal 4.80-13.90 [facility] Comment on above: Performed By: #### L IPID, CMP, T7, TSH #### [facility] [address] [place] [address] Dr. Eb Sol GLYCOHEMOGLOBIN A1Con 2022 ADA RECOMMENDATION SEE BELOW Normal [facility] Comment on above: Result Comment: ADA RECOMMENDED LIMIT 4.0 - 6.0 ADA THERAPEUTIC TARGET < 7.0 ACTION SUGGESTED > 7.0 Performed By: #### A 1C ####[facility] [address] [place] [address]Dr. Eb Sol Glucose [Mass/Vol] 117 mg/dL Normal [facility] Comment on above: Performed By: #### A 1C ####[facility] [address] [place], [place] [address]TnDr. Eb Sol HbA1c (Bld) [Mass fraction] 5.7 % Normal 4.5-6.2 [facility] Comment on above: Performed By: #### A 1C ####[facility] [id number] [place], [place] [address]UpDr. Eb Sol IRONon 07-02-2022 Iron [Mass/Vol] 97.0 ug/dL Normal 50.0-170.0 [facility] Comment on above: Performed By: #### I GOOD #### [facility] [address] [place] [address] [address] Eb Sol LIPID PROFILEon 07-02-2022 CHOL-HDL RATIO NORM SEE BELOW Normal [facility] Comment on above: Result Comment: 3.3 - 4.4 LOW RISK 4.4 - 7.1 AVERAGE RISK 7.1 - 11.0 MODERATE RISK >11.0 HIGH RISK Performed By: #### L IPID, CMP, T7, TSH #### [facility] [address] [place] [address] [address] Eb Sol Cholesterol [Mass/Vol] 247 mg/dL Critically high <=200 [facility] Comment on above: Performed By: #### L IPID, CMP, T7, TSH #### [facility] [address] [place] [address] [address] Eb Sol Cholesterol in HDL [Mass/Vol] 50 mg/dL Normal 40-60 [facility] Comment on above: Performed By: #### L IPID, CMP, T7, TSH #### [facility] [address] [id number] Eb Sol Cholesterol in LDL [Mass/Vol] 153.0 mg/dL Normal [facility] Comment on above: Performed By: #### L IPID, CMP, T7, TSH #### [facility] [address] [id number] Eb Sol Cholesterol.total/C holesterol in HDL [Mass ratio] 4.9 {ratio} Normal [facility] Comment on above: Performed By: #### L IPID, CMP, T7, TSH #### [facility] [address] [place] [address] [address] Eb Sol HDL NORMAL > or = 60 mg/dl - LO W CARDIOVASCULAR RISK <40 mg/dl - HIGH CARDIOVASCULAR RISK Normal [facility] Comment on above: Performed By: #### L IPID, CMP, T7, TSH #### [facility] [address] [place] [address] [address] Eb Sol LDL CALC NORMAL SEE BELOW Normal [facility] Comment on above: Result Comment: <100 mg/dl OPTIMAL 100 - 129 mg/dl NEAR OR ABOVE OPTIMAL 130 - 159 mg/dl BORDERLINE HIGH 160 - 189 mg/dl HIGH >190 mg/dl VERY HIGH Performed By: #### L IPID, CMP, T7, TSH #### [facility] [address] [place] [address] [address] Eb Sol Triglyceride [Mass/Vol] 220 mg/dL Critically high <=150 [facility] Comment on above: Performed By: #### L IPID, CMP, T7, TSH #### [facility] [address] [place] [address] [address] Eb Sol VLDL CALC 44.0 mg/dL Normal [facility] Comment on above: Performed By: #### L IPID, CMP, T7, TSH #### [facility] [address] [address] [address] Eb Sol MG MAMM SCREEN 3D MYRA CADon 07-02-2022 MG MAMM SCREEN 3D MYRA CAD Patient: KATHRYN CARTY Exam Date: 07/02/2022 : 1980 Gender:F Ordering : DR SEN STILL . Admission #: [id number] Family : Order #: [id number] CLICK HERE TO VIEW EXAM RADIOLOGY REPORT PROCEDURE: MAMMOGRAM SCREENING 3D BILATERAL CAD COMPARISON: None. INDICATIONS: Screening mammography Calculator Name NCI Breast Cancer Risk Assessment Tool 5 Year Breast Cancer Risk 0.60% Lifetime Breast Cancer Risk 9.80% Personal Breast Cancer No Personal Ovarian Cancer No Treatments None Family Cancers None LOCATION: [facility] BREAST COMPOSITION: Extremely dense, which lowers the [...] Nassar MD on 07/02/2022 at 08:41 Normal [facility] PROF 14(COMP METB)on 023 Albumin [Mass/Vol] 3.9 g/dL Normal 3.4-5.0 [facility] Comment on above: Performed By: #### L IPID, CMP, T7, TSH #### [facility] [address] [place] [address] Dr. Eb Sol Albumin/Globulin [Mass ratio] 1.1 {ratio} Normal [facility] Comment on above: Performed By: #### L IPID, CMP, T7, TSH #### [facility] [address] [place] [address] [address] Eb Sol ALP [Catalytic activity/Vol] 65 U/L Normal 46-116 [facility] Comment on above: Performed By: #### L IPID, CMP, T7, TSH #### [facility] [address] [place] [address] Dr. Eb Sol ALT [Catalytic activity/Vol] 33 U/L Normal 14-59 [facility] Comment on above: Performed By: #### L IPID, CMP, T7, TSH #### [facility] [address] [place] [address] Dr[address] Eb Sol Anion gap [Moles/Vol] 16.4 mmol/L Normal [facility] Comment on above: Performed By: #### L IPID, CMP, T7, TSH #### [facility] [address] [address] [address] Eb Sol AST [Catalytic activity/Vol] 21 U/L Normal 15-37 [facility] Comment on above: Performed By: #### L IPID, CMP, T7, TSH #### [facility] [address] [place] [address] Dr. Eb Sol Bilirubin [Mass/Vol] 0.4 mg/dL Normal 0.2-1.0 [facility] Comment on above: Performed By: #### L IPID, CMP, T7, TSH #### [facility] [address] [place] [address] Dr. Eb Sol Calcium [Mass/Vol] 9.2 mg/dL Normal 8.5-10.1 [facility] Comment on above: Performed By: #### L IPID, CMP, T7, TSH #### [facility] [address] [place] [address] Dr. Eb Sol Chloride [Moles/Vol] 104 mmol/L Normal 98-107 [facility] Comment on above: Performed By: #### L IPID, CMP, T7, TSH #### [facility] [address] [place] [address] Dr. Eb Sol CO2 [Moles/Vol] 23.8 mmol/L Normal 21.0-32.0 [facility] Comment on above: Performed By: #### L IPID, CMP, T7, TSH #### [facility] [address] [place] [address] Dr. Eb Sol Creatinine [Mass/Vol] 0.97 mg/dL Normal 0.55-1.02 [facility] Comment on above: Performed By: #### L IPID, CMP, T7, TSH #### [facility] [address] [place] [address] Dr. Eb Sol EGFR-AF UGANDAN >60 Normal >=60 [facility] Comment on above: Performed By: #### L IPID, CMP, T7, TSH #### [facility] [address] [place] [address] Dr. Eb Sol EGFR-NON AF UGANDAN >60 Normal >=60 [facility] Comment on above: Performed By: #### L IPID, CMP, T7, TSH #### [facility] [address] [place] [address] Dr. Eb Sol Globulin (S) [Mass/Vol] 3.6 g/dL Normal [facility] Comment on above: Performed By: #### L IPID, CMP, T7, TSH #### [facility] [address] [address] [address] Eb Sol Glucose [Mass/Vol] 119 mg/dL Critically high 74-106 T [facility] Comment on above: Performed By: #### L IPID, CMP, T7, TSH #### [facility] [address] [address] [address] Eb Sol Potassium [Moles/Vol] 4.2 mmol/L Normal 3.5-5.1 [facility] Comment on above: Performed By: #### L IPID, CMP, T7, TSH #### [facility] [address] [place] [address] Dr. Eb Sol Protein [Mass/Vol] 7.5 g/dL Normal 6.4-8.2 [facility] Comment on above: Performed By: #### L IPID, CMP, T7, TSH #### [facility] [address] [place] [address] Dr. Eb Sol Sodium [Moles/Vol] 140 mmol/L Normal 136-145 [facility] Comment on above: Performed By: #### L IPID, CMP, T7, TSH #### [facility] [address] [place] [address] Dr. Eb Sol Urea nitrogen [Mass/Vol] 16.0 mg/dL Normal 7.0-18.0 [facility] Comment on above: Performed By: #### L IPID, CMP, T7, TSH #### [facility] [address] [place] [address] Dr. Eb Sol Urea nitrogen/Creatinine [Mass ratio] 16.5 mg/mg Normal [facility] Comment on above: Performed By: #### L IPID, CMP, T7, TSH #### [facility] [address] [place] [address] Dr. Eb Sol TSHon 07-02-2022 TSH 3.367 uIU/mL Normal 0.358-3.740 [facility] Comment on above: Performed By: #### L IPID, CMP, T7, TSH #### [facility] [address] [place] [address] Dr. Eb Sol PAP ACOG PANEL 2: 30 to 65on 04-29-2022 . . Normal [facility] Comment on above: Result Comment: Perf ormed at: WB Performed By: #### 4 [id number] #### [facility] [address] [address] [address] Eb Sol Age Gdln ACOG Testing 30-65 Normal [facility] Comment on above: Performed By: #### 4 [id number] #### [facility] [address] [place] [address] Dr. Eb Sol DIAGNOSIS: Comment Normal [facility] Comment on above: Result Comment: NEGA TIVE FOR INTRAEPITHELIAL LESION OR MALIGNANCY. Performed at: WB Performed By: #### 4 [id number] #### [facility] [address] [place] [address] Dr. Eb Sol HPV Aptima Negative Normal Negative [facility] Comment on above: Result Comment: This nucleic acid amplification test detects fourteen high-risk HPV types (16,18,31,33,35,39,45,51,52,56,58,59,66,68) without differentiation. Performed at: =G Performed By: #### 4 [id number] #### [facility] [address] [place] [address] Dr. Eb Sol HPV Genotype Reflex Comment Normal [facility] Comment on above: Result Comment: Crit eria not met, HPV Genotype not performed. Performed at: WB Performed By: #### 4 [id number] #### [facility] [address] [place] [address] Dr. Eb Sol Methodology: Comment Normal [facility] Comment on above: Result Comment: This liquid based ThinPrep(R) pap test was screened with the use of an image guided system. Performed at: WB Performed By: #### 4 [id number] #### [facility] [address] [place] [address] Dr. Eb Sol Note: Comment [facility] Comment on above: Result Comment: The Pap smear is a screening test designed to aid in the detection of premalignant and malignant conditions of the uterine cervix. It is not a diagnostic procedure and should not be used as the sole means of detecting cervical cancer. Both false-positive and false-negative reports do occur. . Performed at: WB Performed By: #### 4 [id number] #### [facility] [address] [address] [address] Eb Sol Performed by: Comment Normal [facility] Comment on above: Result Comment: Esperanza Parmar, Family Medicine Physician (ASCP) Performed at: WB Performed By: #### 4 [id number] #### [facility] [address] [address] [address] Eb Sol Specimen adequacy: Comment [facility] Comment on above: Result Comment: Sati sfactory for evaluation. Endocervical and/or squamous metaplastic cells (endocervical component) are present. Performed at: WB Performed By: #### 4 [id number] #### [facility] [address] [address] [address] Eb Sol Intraoperative Noteon 2017 Intraoperative Note [id number]#[facility] Intraoperative [facility] 2017 Intraoperative Note [id number]#1.00[facility] History and Physicalon 04-19 History and Physical [id number]#1.00[facility] Operative Report - Surgeon/P pinky 04-19-2017 Operative Report - Surgeon/Physician [id number]#1.00[facility] Provider Orderson 04-19-2017 Provider Orders [id number]#1.00[facility] Provider Orders [id number]#1.00[facility] Coding Summaryon 03-28-2017 Coding Summary CODING DATE: 017 [facility] STATUS: Home PAYOR: Commercial Insurance APC DESCRIPTION 5361 Level 1 Laparoscopy and Related Services ADMIT DX: REASON FOR VISIT DX: R10.2 Pelvic and perineal pain N83.201 Unspecified ovarian cyst, right side FINAL DX: PRINCIPAL: N83.11 Corpus luteum cyst of right ovary SECONDARY: Z72.0 Tobacco use PYMT PROC APC STAT DESCRIPTION DOCTOR NAME DATE 52406 5361 J1 Laparoscopy, surgical; Taryn DHILLON George Wilkerson 03/19/2017 with removal of adnexal structures (partial or total oophorectomy and/or salpingectomy) NOTE: The code number assigned matches the documented diagnosis and / or procedure in the patient's chart. However, the narrative phrase printed from the coding software may appear abbreviated, or result in slightly different terminology. Coded By: Katelyn Robertson Date Saved: 03/28/2017 07:54 am [facility] Intraoperative Noteon 2016 Intraoperative Note [id number]#1.00[facility] - Other Lab Result[facility] Lab - Other Lab Results [id number]#1.00[facility] Pathology Sendout Teston Pathology Send Out. See Report [facility] Comment on above: Order Comment: RIGHT OVARY AND TUBE Performed By: #### 2 [id number] ####[facility] (DEFAULT)[address] [place] [address] Consent Formson 03-20-2017 Consent Forms [id number]#1.00[facility] Consent Forms [id number]#1.00[facility] Telemetry Stripson 7 Telemetry Strips [id number]#1.00[facility] Anesthesia Noteon 03-19-2017 Anesthesia Note Patient: KATHRYN CARTY : 37 years Sex: FEMALE : [birth year]Associated Diagnoses: NoneAuthor: Maximiliano Casonostoperative InformationPost Operative Note: Post Anesthesia Care Unit.Review / ManagementCondition: Stable.AssessmentAnesthetic outcomeNo anesthetic complications noted.PlanTransfer/ Discharge: Patient can be discharged from PACU when criteria met.Condition good.[Electronically Signed on: 03/19/2017 10:26 EST] Maximiliano Cason DO[Verified on: 03/19/2017 10:26 EST] Maximiliano Cason DO [facility] Anesthesia Note Patient: KATHRYN CARTY : 37 years Sex: FEMALE : [birth year]Associated Diagnoses: NoneAuthor: Maximiliano Casonredaphne InformationAnesthesia history: Patient history: No difficult intubation, No malignant hyperthermia. Family history: No malignant hyperthermia, No prior anesthesia problems.Review of SystemsConstitutionalEyeEar/N ose/Mouth/ThroatRespiratory: No shortness of breath, No cough.Cardiovascular: No chest pain.Neurologic: Alert and oriented X4.Health StatusAllergies:Allergic Reactions (All)No Known Medication AllergiesCurrent medications:Home Medications (3) Activeibuprofen 800 mg oral tablet 800 mg = 1 tab(s), PRN, PO, TIDMetoprolol Succinate ER 50 mg oral tablet, extended release 50 mg = 1 tab(s), PO, DailyNorco 5 mg-325 mg oral tablet 1 tab(s), PRN, PO, h5raVkmlqdz list (past medical history):All ProblemsHTN (hypertension) / SNOMED CT 2448902670 / ConfirmedHistoriesFamily History:No family history items have been selected or recorded.Procedure history:Laparoscopy ([id number]) on 01/22/2017 at 37 Years.Carpal tunnel release (819248184).Comments: 7 13:22 - Joanne Rollins RNright sideCesarean section ([id number]).Comments:01/16/2017 13:23 - Joanne Rollins RNtimes 1Social History Alcohol Assessment Use: Current. 1-2 times per year Tobacco Assessment Comment: states uses the e-ciggs (throughout the day) Substance Abuse Assessment Substance use: Never..Social & Psychosocial CmxxicBdntkis86/20/2017 Alcohol Use: Current Frequency: 1-2 times per yearSubstance Abuse01/16/2017 Substance use: NeverTobacco Comment: states uses the e-ciggs (throughout the day) - 01/16/2017 13:26 - Joanne Rollins RN.Physical ExaminationVS/MeasurementsVit al Signs (last 24 hrs) Last ChartedHeart Rate Apical 68 bpm (MAR 19:)Resp Rate 14 br/min (MAR 19)SBP 116 mmHg (MAR 19:)DBP 86 mmHg (MAR 19:)SpO2 99 % (MAR 19)General: Alert and oriented, No acute distress.Airway: Mallampati [...] 03/19/2017 08:50 EST] Maximiliano Cason DO Normal [facility] Inpatient Clinical Summaryon 03-19-2017 Inpatient Clinical Summary [facility] SURGERYClinical Discharge SummaryPERSON INFORMATIONName KATHRYN CARTY Age 37 Years 82Sex FEMALE Language Ethiopian PCP Surekha STILL Status [id number] Acct# Arrival 03/19/17 06:44:53Visit Reason dx laparoscopy Acuity LOS 004 23:46Address:[address] [place], [place] [address]Comment:PROVIDER INFORMATIONVITALS INFORMATIONVital Sign Triage LatestTemp OralTemp Temporal 36.3 DegC 35.9 DegCTemp IntravascularTemp AxillaryTemp Ypetci77 Sat 99 % 100 %Respiratory Rate 14 [...] release) 50 mg Oral every dayDiscontinue These Medications:acetaminophen-hyd rocodone ([place]woods 5 mg-325 mg oral tablet) 1 tab(s) Oral Every 6 hours as needed for for pain may take 1 or 2 tabletsnot to exceed 8 tablets/dayComment:Lab and Radiology ResultsLaboratory or Other Results This Visit (last charted value for your 03/19/2017 visit) Chemistry 03/19/2017 7:15 AM U Preg: NegativeDIET & ACTIVITYPatient Activity Level:Patient Diet:Patient Activity Restrictions:DISCHARGE INFORMATIONDischarge Disposition:Discharge Location:DEPART REASON INCOMPLETE INFORMATIONPATIENT EDUCATION INFORMATIONInstructions:Diagn ostic Laparoscopy, Care After - Dr Centeno (MHKHARRISON)Follow up:With: Address: When:George Centeno [address] [place], [place] [id number] Business (1) In 2 weeks 04/02/17Comments:Call for follow up appointmentWith: Address: When:SEN STILL [address] [facility], [place], [place] [address] Business (1)DIAGNOSIS1:Pelvic pain; 2:Ovarian cyst, rightComment:PHYS DOC NOTES Normal [facility] Inpatient Patient Summaryon 03-19-2017 Inpatient Patient Summary [address] [id number] patient Discharge InstructionsName: KATHRYN CARTYOB: [birth year] Address: [address] [place] [address] Care Provider:Name: SEN STILLPhone: After you are discharged if you find you have any questions, please, call [phone] ext [phone] to speak to a nurse.Discharge Diagnosis: 1:Pelvic [...] or business decisions or sign any legal documentsCrystal Clinic Orthopedic Center would like to thank you for allowing us to assist you with your healthcare needs. The following includes patient education materials and information regarding your injury/illness.KATHRYN CARTY has been given the following list of follow-up instructions, prescriptions, and patient education materials:Follow-up InstructionsWith: Address: When:George Centeno [address] [place], [place] [id number] Business (1) In 2 weeks 04/02/17Comments:Call for follow up appointmentWith: Address: When:SEN STILL [address] [facility], [place] [address] Business (1)MedicationsDuring the course of your visit, [...] Oral every day.No Longer Take the Following Medicationsacetaminophen-hydr ocodone ([place]woods 5 mg-325 mg oral tablet) 1 tab(s) [...] the throat and abdomen.HOME CARE INSTRUCTIONS? 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 Change your dressings (Band Aids) daily after [...] Document Reviewed: 03/26/2016[employer] Patient Education ?2016 [employer].Viruses or BacteriaWhat?s got you sick?Antibiotics only treat [...] Aren?t Always the Answerwww.cdc.gov/getsmart GETSMARTKnow When Antibiotics Trista.[place]. Department of Health and Human ServicesClinton Memorial Hospitalers for Disease Control and Prevention December 2013 [facility] MAGR Intraoperative Recordon 03-19-2017 MAGR Intraoperative Record MAGR Intra-Op Record Summary Primary Physician: George Centeno DO Finalized Date/Time: 03/19/17 13:24:14 Pt. Name: CARLOZKATHRYN/Sex: 1980 FEMALE Med Rec #: [id number] Physician: George Centeno DO Financial #: [id number] Pt. Type: D Room/Bed: / Admit/Disch: 03/19/17 [...] Role Performed Surgeon - Primary Anesthesiologist of Director Of Restaurant Record Time In 03/19/17 09:04:00 03/19/17 09:04:00 03/19/17 09:04:00 Time Out 03/19/17 10:20:00 03/19/17 10:20:00 03/19/17 10:20:00 Procedure Laparoscopy Diagnostic Laparoscopy Diagnostic Laparoscopy Diagnostic Last Modified By: Valencia Johnson RN, Stephanie RN Sauer, Stephanie RN 03/19/17 13:19:07 03/19/17 13:19:07 03/19/17 13:19:07 Entry 4 Entry 5 Case Attendee Michelle Ackerman CST, Stephanie RN Role Performed Scrub Personnel Microeconomics Professor Time In 03/19/17 09:04:00 03/19/17 09:04:00 Time Out 03/19/17 10:20:00 03/19/17 10:20:00 Procedure Laparoscopy Diagnostic Laparoscopy Diagnostic Last Modified By: Valencia Johnson RN, Stephanie RN 03/19/17 13:19:07 03/19/17 13:19:07 Surgical Procedures MAGR Pre-Care Text: A.20 Verifies operative procedure, surgical site, and laterality Im.150 Develops individualized plan of care Entry 1 Procedure Laparoscopy Diagnostic Primary Procedure Yes Primary Surgeon eGorge Centeno DO Surgeon Comment Diagnostic Laparoscopy Start [...] Methods Clipper Hair Removal By Magdalena Love GROUND PRODUCTS DIRECTOR Hair Removal Site Pubis Outcome Met (O.100) [...] Initial Count Sharps Performed By Michelle Ackerman [facility] Initial Count Time 03/19/17 08:48:00 Counts Verification Final Counts Items Included in Sponges, Sharps Final Count Status Correct Final Count Final Counts Valencia Johnson RN, Final Count Time 03/19/17 09:55:00 Performed By Michelle Ackerman [facility] Surgeon notified of Yes final counts status [...] RN 03/19/17 10:03:09 Case Comments Finalized By: Vlaencia Johnson RN Document Signatures Signed By: Valencia Johnson RN 03/19/17 13:24 [facility] MAGR PACU Recordon 7 MAGR PACU Record MAGR PACU Record [facility] Primary Physician: George Centeno DO Finalized Date/Time: 03/19/17 11:29:42 Pt. Name: KATHRYN CARTY D.O.B./Sex: 1980 FEMALE Med Rec #: [id number] Physician: George Centeno DO Financial #: [id number] Pt. Type: D Room/Bed: / Admit/Disch: 03/19/17 [...] PATIENT TRANSFERRED TO PACU II PER VALENCIA JOHNSON RN - REPORT GIVEN TO GILES NELSON RN Finalized By: Linda Bledsoe RN Document Signatures Signed By: Linda Bledsoe RN 03/19/17 11:29 [facility] MAGR Postoperative Recordon 03-19-2017 MAGR Postoperative Record MAGR Phase II Record Summary Primary Physician: George Cneteno DO Finalized Date/Time: 03/19/17 12:16:03 Pt. Name: KATHRYN CARTY D.O.B./Sex: 1980 FEMALE Med Rec #: [id number] Physician: George Centeno DO Financial #: [id number] Pt. Type: D Room/Bed: / Admit/Disch: 03/19/17 [...] per W/C to private car. Finalized By: Giles Nelson RN Document Signatures Signed By: Giles Nelson RN 03/19/17 12:16 [facility] MAGR Preoperative Recordon 1 05-19-2016 MAGR Preoperative Record MAGR Pre-Op Record Summary Primary Physician: George Centeno DO Finalized Date/Time: 03/19/17 11:10:59 Pt. Name: CARLOZ KATHRYNMIGUEL ANGEL Holder/Sex: 1980 FEMALE Med Rec #: [id number] Physician: George Centeno DO Financial #: [id number] Pt. Type: D Room/Bed: / Admit/Disch: 03/19/17 [...] Signed By: Giles Nelson RN 03/19/17 11:10 [facility] Operative Report - Surgeon/P pinky 03-19-2017 Operative Report - Surgeon/Physician DATE OF PROCEDURE: 03/19/2017PREOPERATIVE DIAGNOSIS: Pelvic pain, complex right ovarian cyst.POSTOPERATIVE DIAGNOSIS: Pelvic pain, complex right ovarian cyst, pendingpathology.OPERATIVE PROCEDURE: Diagnostic laparoscopy, operative laparoscopy, rightsalpingo-oophorectomy.PORRAS RGEON: George Centeno, DOANESTHESIA: General by Maximiliano Leahy [...] then grasped with a single toothtenaculum. An De Beque uterine manipulator was then advanced into the [...] room, awake and in stablecondition.SHAMIR Paul #: [id number]: 03/19/2017T: 03/19/2017[Electronically Signed on: 03/26/2017 07:50 EST] George Centeno DO, D.O.[Verified on: 03/26/2017 07:50 EST] George Centeno DO, D.O.[Transcribed on: 03/19/2017 13:00 EST]GDU [facility] Test Urine 1on U Preg Negative [facility] Comment on above: Result Comment: Call santiago Giles W 03/19/2017 09:03:33 EST Performed By: #### 3 [id number] ####[facility] (DEFAULT)[address] [place] [address] U Preg Internal Control Pass [facility] Comment on above: Performed By: #### 3 [id number] ####[facility] (DEFAULT)[address] [place] [address] Progress Note - Nurseon 02-28 Progress Note - Nurse Preop call completed, patient arriving at 0700 on 03/19/17....preop instructions reviewed[Electronically Signed on: 03/18/2017 13:08 EST] Loren Chaves RN[Verified on: 03/18/2017 13:08 EST] Loren Chaves RN [facility] History and Physicalon 02-11 History and Physical [id number]#1.00[facility] Operative Report - Surgeon/P hysicilolin 02-11-2017 Operative Report - Surgeon/Physician [id number]#1.00[facility] Provider Orderson 02-11-2017 Provider Orders [id number]#1.00[facility] Preoperative Recordon 1 MAGR Preoperative Record MAGR Pre-Op Record Summary Primary Physician: George Centeno DO Finalized Date/Time: 02/07/17 10:42:56 Pt. Name: KATHRYN CARTY/Sex: 1980 FEMALE Med Rec #: [id number] Physician: George Centeno DO Financial #: [id number] Pt. Type: D Room/Bed: / Admit/Disch: 01/22/17 [...] consent correct. General Comments: Pt arrives to psw ambulatory. Pt denies any pain, cp, sob, cough or flu like symptoms. Pt denies pacemaker/defibillator or sleep apnea. Finalized By: Joanne Rollins RN Document Signatures Signed By: Joanne Rollins RN 02/07/17 10:42 [facility] MAGR Intraoperative Recordon 01-29-2017 MAGR Intraoperative Record MAGR Intra-Op Record Summary Primary Physician: George Centeno DO Finalized Date/Time: 01/29/17 12:54:01 Pt. Name: CARLOZKATHRYN/Sex: 1980 FEMALE Med Rec #: [id number] Physician: George Centeno DO Financial #: [id number] Pt. Type: D Room/Bed: / Admit/Disch: 01/22/17 06:06:27 - 01/22/17 10:55:00 Institution: Case Times MAGR [...] Role Performed Surgeon - Primary Anesthesiologist of Microeconomics Professor Record Time In 01/22/17 07:57:00 01/22/17 07:57:00 01/22/17 07:57:00 Time Out 01/22/17 09:20:00 01/22/17 09:20:00 01/22/17 09:20:00 Procedure Laparoscopy Diagnostic Laparoscopy Diagnostic Laparoscopy Diagnostic Last Modified By: Valencia Johnson RN, Stephanie RN Sauer, Stephanie RN 01/22/17 12:14:56 01/22/17 12:14:56 01/22/17 12:14:56 Entry 4 Entry 5 Entry 6 Case Attendee Valencia Johnson RN, Lauren M CST Nikolaus, Linda M Role Performed Microeconomics Professor Scrub Personnel Director Of Restaurant Time In 01/22/17 07:57:00 01/22/17 07:57:00 01/22/17 [...] Count Performed By Noah COOMBS Lauren M GROUND PRODUCTS DIRECTOR Initial Count Time 01/22/17 07:20:00 Counts Verification Final Counts Items Included in Sponges, Sharps Final Count Status Correct Final Count Final Counts Milagro Isaacs Final Count Time 01/22/17 08:56:00 Performed By Noah COOMBS Lauren M GROUND PRODUCTS DIRECTOR Surgeon notified of Yes final counts status [...] Incisional/Surgical Site Volume 20 mL By Nereyda Madison Outcome Met (O.130) Yes Last Modified By: [...] Pick List 01/29/17 12:53 MHBSOFIAK Correct Documentation Normal [facility] Coding Summaryon 01-24-2017 Coding Summary CODING DATE: 017 [facility] STATUS: Home PAYOR: Commercial Insurance APC DESCRIPTION 5361 Level 1 Laparoscopy and Related Services ADMIT DX: REASON FOR VISIT DX: R10.2 Pelvic and perineal pain FINAL DX: PRINCIPAL: N83.201 Unspecified ovarian cyst, right side SECONDARY: 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 However, the narrative phrase printed from the coding software may appear abbreviated, or result in slightly different terminology. Coded By: Katelyn Robertson Date Saved: 01/24/2017 10:49 am [facility] Consent Formson 01-23-2017 Consent Forms [id number]#1.00[facility] Intraoperative Noteon 2016 Intraoperative Note [id number]#1.00[facility] Intraoperative Note [id number]#1.00[facility] Medication Managementon 12-29 Medication Management [id number]#1.00[facility] [facility]pson Telemetry Strips [id number]2017 Anesthesia Note Patient: KATHRYN CARTY : 37 years Sex: FEMALE : [birth year]Associated Diagnoses: NoneAuthor: Ventura Lui MDPostoperative InformationPost Operative NoteHealth StatusAllergies:Allergic Reactions (All)No Known Medication AllergiesProblem list (past medical history):All ProblemsHTN (hypertension) / SNOMED CT 2506962010 / ConfirmedPhysical ExaminationVS/MeasurementsVit al Signs (last 24 hrs) Last Charted Heart Rate Peripheral 66 bpm (JAN 22 06:40)Resp Rate 18 br/min (JAN 22 09:20)SBP 133 mmHg (JAN 22 09:20)DBP 78 mmHg (JAN 22 09:20)SpO2 100 % (JAN 22 09:20)AssessmentAnesthetic outcomeNo anesthetic complications noted.PlanTransfer/ Discharge: To home, Patient can be discharged from PACU when criteria met.[Electronically Signed on: 01/22/2017 09:29 EDT] Ventura Lui MD[Verified on: 01/22/2017 09:29 EDT] Vnetura Lui MD [facility] Anesthesia Note Patient: KATHRYN CARTY : 37 years Sex: FEMALE : [...] medical history):All ProblemsHTN (hypertension) / SNOMED CT 3134416483 / ConfirmedHistoriesFamily History:No family history items have been selected or recorded.Procedure history:Carpal tunnel release ([id number]).Comments: 7 13:22 - Joanne Rollins RNright sideCesarean section ([id number]).Comments:01/16/2017 13:23 - Joanne Rollins RNtimes 1Social History Alcohol Assessment Use: Current. 1-2 times per year Tobacco Assessment Comment: states uses the e-ciggs (throughout the day) Substance Abuse Assessment Substance use: Never..Social & Psychosocial TbrguiVmqtjwn25/20/2017 Alcohol Use: Current Frequency: 1-2 times per yearSubstance Abuse01/16/2017 Substance use: NeverTobacco Comment: states uses the e-ciggs (throughout the day) - 01/16/2017 13:26 - Joanne Rollins RN.Physical ExaminationVS/MeasurementsVit al Signs (last 24 hrs) Last Charted Heart [...] 01/22/2017 07:38 EDT] Ventura Lui MD Normal [facility] Standardon 01-22-2017 eGFR (non-black) mL/min/{1.73_m2} Invalid Interpretation Code [facility] Comment on above: Performed By: #### 1 [id number] ####[facility] (DEFAULT)[address] [place] [address] Result Comment: Wharf Tender Helper berna Kidney disease could be indicated at eGFRs of less than 60 ml/min/1.73m2. Kidney Failure is indicated at less than 15 ml/min/1.73m2 Anion gap 11.0 mmol/L Normal 5.0-19.0 [facility] Comment on above: Performed By: #### 1 [id number] ####[facility] (DEFAULT)[address] [place] [address] BUN/Creatinine Ratio 26.0 mg/mg High 4.6-16.2 [facility] Comment on above: Performed By: #### 1 [id number] ####[facility] (DEFAULT)[address] [place] [address] Calcium 9.1 mg/dL Normal 8.9-10.3 [facility] Comment on above: Performed By: #### 1 [id number] ####[facility] (DEFAULT)[address] [place] [address] Chloride 107 mmol/L Normal 101-111 [facility] Comment on above: Performed By: #### 1 [id number] ####[facility] (DEFAULT)[address] [place] [address] 92684 CO2 24 mmol/L Normal 21-32 [facility] Comment on above: Performed By: #### 1 [id number] ####[facility] (DEFAULT)[address] [place] [address] Creatinine 0.81 mg/dL Normal 0.60-1.30 [facility] Comment on above: Performed By: #### 1 [id number] ####[facility] (DEFAULT)[address] [place] [address]74 Glucose mass conc 106.0 mg/dL Normal 74.0-118.0 [facility] Comment on above: Performed By: #### 1 [id number] ####[facility] (DEFAULT)[address] [place] [address] Osmolality 279 mOsm/L Invalid Interpretation Code [facility] Comment on above: Performed By: #### 1 [id number] ####[facility] (DEFAULT)[address] [place] [address] 78598 Potassium molar conc 4.2 mmol/L Normal 3.6-5.1 [facility] Comment on above: Performed By: #### 1 [id number] ####[facility] (DEFAULT)[address] [place] [address]24 Sodium 138.0 mmol/L Normal 136.0-144.0 [facility] Comment on above: Performed By: #### 1 [id number] ####[facility] (DEFAULT)[address] [place] [address] 10819 Urea nitrogen 21 mg/dL Normal 8-26 [facility] Comment on above: Performed By: #### 1 [id number] ####[facility] (DEFAULT)[address] [place] [address] Inpatient Clinical Summaryon 01-22-2017 Inpatient Clinical Summary [facility] SURGERYClinical Discharge SummaryPERSON INFORMATIONName KATHRYN CARTY Age 37 Years [birth year]Sex FEMALE Language Ethiopian PCP Surekha STILL Status Med Service Ambulatory SurgeryMRN [id number] Acct# Arrival 01/22/17 06:06:27Visit Reason SURGERY - DX LAPAROSCOPY Acuity LOS 033 20:21Address:[address] [address]Cwyawff:PROVIDER INFORMATIONVITALS INFORMATIONVital Sign Triage LatestTemp OralTemp Temporal 36.3 DegC 36.3 DegCTemp IntravascularTemp AxillaryTemp [id number] Sat 97 % 92 %Respiratory Rate 16 br/min 18 br/minPeripheral Pulse Rate 83 bpm 66 bpmApical Heart RateBlood Pressure 124 mmHg / 82 mmHg 123 mmHg / 88 mmHgComment:MEDICAL INFORMATIONAllergy Info:No Known Medication AllergiesPrescriptions Given:Prescription Displayacetaminophen-hydrocod one (Flatwoods 5 mg-325 mg oral tablet) 1 tab(s), [...] 50 mg ), PO, DailyMedication List:Fill New Prescriptions:acetaminophen-h ydrocodone ([place] 5 mg-325 mg oral tablet) 1 tab(s) [...] INFORMATIONDischarge Disposition:Discharge Location:DEPART REASON INCOMPLETE INFORMATIONPATIENT EDUCATION INFORMATIONInstructions:Diagn ostic Laparoscopy, Care After - Dr Centeno (MHKHARRISON)Follow up:With: Address: When:George Centeno [address] [place] [address] Business (1) In 2 weeks 02/05/17Comments:Call for follow up appointmentWith: Address: When:SEN STILL [address] [place] [address] Business (1)DIAGNOSISPelvic painComment:PHYS DOC NOTES Normal [facility] Inpatient Patient Summaryon 01-22-2017 Inpatient Patient Summary [place] [address] [place], [place] [id number] patient Discharge InstructionsName: KATHRYN CARTYOB: 82 Address: [address] [place] [address] Care Provider:Name: SEN STILLPhone: Discharge Diagnosis: Pelvic painIf you received any [...] or business decisions or sign any legal documentsC[facility] Clinic [facility] would like to thank you for allowing us to assist you with your healthcare needs. The following includes patient education materials and information regarding your injury/illness.KATHRYN CARTY has been given the following list of follow-up instructions, prescriptions, and patient education materials:Follow-up InstructionsWith: Address: When:George Centeno [address] [place] [id number] Business (1) In 2 weeks 02/05/17Comments:Call for follow up appointmentWith: Address: When:SEN STILL [facility] [place] [address] Business (1)MedicationsDuring the course of your visit, your medication list was updated with the most current information. The details of those changes are reflected below:New MedicationsPrinted Prescriptionsacetaminophen-hy drocodone ([place]atwoods 5 mg-325 mg oral tablet) 1 tab(s) [...] list that you can keep with you.acetaminophen-hydrocodone ([place] 5 mg-325 mg oral tablet) 1 tab(s) [...] the throat and abdomen.HOME CARE INSTRUCTIONS? 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 Change your dressings (Band Aids) daily after [...] health care provider.Document Released: 03/26/2016 Document Reviewed: 03/26/2016[employer] Patient Education ?2016 [employer]. Viruses or BacteriaWhat?s got you sick?Antibiotics only [...] for Disease Control and Prevention [facility] 2013 [facility] PAC[facility] Record [facility] Record [facility] Primary Physician: George Centeno DO Finalized Date/Time: 01/22/17 10:25:13 Pt. Name: KATHRYN CARTY/Sex: 1980 FEMALE Med Rec #: [id number] Physician: George Centeno DO Financial #: [id number] Pt. Type: D Room/Bed: / Admit/Disch: 01/22/17 [...] TO PACU II AND CARE CONT PER SWATCH PASTER. Finalized By: Lillie Main Document Signatures Signed By: Lillie Main 01/22/17 10:25 [facility]ordon 01-22-2017 [facility] Postoperative Record [facility] Phase II Record Summary Primary Physician: George Centeno DO Finalized Date/Time: 01/22/17 11:05:19 Pt. Name: KATHRYN CARTY/Sex: 1980 FEMALE Med Rec #: [id number] Physician: George Centeno DO Financial #: [id number] Pt. Type: D Room/Bed: / Admit/Disch: 01/22/17 [...] Signatures Signed By: Lillie Main 01/22/17 11:05 Normal [facility] Operative Report - Surgeon/P pinky 01-22-2017 [...] Blood in the cul-de-sac was noted andStry[employer] medical reimbursement manager was then placed into the second trocar [...] awake and in stable condition.SHAMIR Paul #: [id number]: 01/22/2017T: 01/22/2017[Electronically Signed on: 01/22/2017 12:53 EDT] George Centeno DO, D.O.[Verified on: 01/22/2017 12:53 EDT] George Centeno DO, D.O.[Transcribed on: 01/22/2017 11:14 EDT]GDU Normal [facility] Test Urine 1on U Preg Negative [facility] Comment on above: Result Comment: Nega tive Performed By: #### 3 [id number] ####[facility] (DEFAULT)[address] [place] [address] U Preg Internal Control Pass [facility] Comment on above: Result Comment: Pass Performed By: #### 3 [id number] ####[facility] (DEFAULT)[address] [place] [address] Vital Signs Date Time Vital Sign Value Performing Clinician Zora linares 01-17-2024 02:170400 Body height 160.02 cm MD Sen Still Work Phone: [facility] 01-17-2024 02:170400 Body temperature 98.1 [degF] MD Sen Still Work Phone: [facility] 01-17-2024 02:17-040 Body weight 77.95 kg MD Sen Still Work Phone: [facility] 01-17-2024 02:17040 Diastolic blood pressure 109 mm[Hg] MD Sen Still Work Phone: [facility] 01-17-2024 02:17-0400 Heart rate 86 /min MD Sen Still Work Phone: [facility] 01-17-2024 02:17-0400 Respiratory rate 18 /min MD Sen Still Work Phone: [facility] 01-17-2024 02:17-0400 SaO2% (BldA) [Mass fraction] 95 % MD Sen Stlil Work Phone: [facility] 01-17-2024 02:17-0400 Systolic blood pressure 167 mm[Hg] MD Sen Still Work Phone: [facility] Encounters Encounter Date Encounter Type Care Provider Facility Start: 01-17-2024 End: 01-17-2024 Emergency department patient visit MD Sen Still Work Phone: [facility] Work Phone: Start: 10-24-2023 End: 10-24-2023 ambulatory ALLISON M[facility]A Not Available Start: 08-27-2022 End: 08-28-[address] SEN STILL . Facility: Start: 07-03-2022 Encounter for genera l adult medical examination without abnormal findings DR SEN STILL . [facility] Start: 07-02-2022 End: 07-03-[address] SEN STILL . Facility: Start: 07-02-2022 End: 07-03-2022 Encounter for general adult medical examination without abnormal findings DR SEN STILL . Facility: Start: 04-17-2022 End: 04-17-[address] SEN STILL . Facility: Start: 03-19-2017 End: 03-19-2017 [facility]ulatory [facility] Facility:[facility] Start: 03-14-2017 Ambulatory [facility] Facility: [facility] Start: 01-22-2017 End: 01-22-2017 Ambulatory [facility] Facility:[facility] Start: 01-17-2017 End: 01-17-2017 Ambulatory [facility] Facility:[facility] Plan of Treatment Date Care Activity Detail Author Start: 01-17-2024 Bacteria identified in Urine by Culture [facility] Patient Education Urinary Tract Infection, Adult ED Vaginal Yeast Infection, Adult ED [facility] Work Phone: Patient referral [facility] Work Phone: Payers Date Payer Category Payer Self-pay [id number] 2017 Private Health Insurance [id number] 1980 Unknown [id number] 1980 Unknown [id number] 1980 Unknown [id number] 1980 Unknown [id number] 1958 Private Health Insurance [id number] 1958 Unknown [id number] Private Health Insurance [employer] [id number] Unknown [id number] Worker's Compensation [id number] Social History Date Type Detail Facility Start: 01-17-2024 Tobacco smoking stat [facility] Smoker (finding) [facility] Start: 1980 Sex Assigned At Female F [facility] Evaluation note Note Date & Type Note Facility Evaluation note No assessment information availa ble [facility] Work Phone: Hospital Discharge instructions Note Date & Type Note Facility Hospital Discharge instructions Additional Instructions Follow-up with your doctor. We are always happy to see you here if you need our help. [facility] Work Phone: Summary Purpose Family History No Family History Records Found Relationship Condition Age at Onset Recorded Date/T nehemiah father Heart problem Unknown Advance Directives No Advanced Directives Records Found Advance Directive Response Recorded Date/ Time Advance Directives No February 12, 2020 12:37am Chief Complaint and Reason for Visit Chief Complaint Frequent & Burning w /Urination Additional Source Comments INFORMATION SOURCE (unrecogn ized section and content) DATE CREATED AUTHOR 10/15/2017 [facility] DATE CREATED AUTHOR AUTHOR'S ORGANIZ ATION 08/31/2022 [facility] DATE CREATED AUTHOR AUTHOR'S ORGANIZ ATION 10/25/2023 [facility] EPIC DATE CREATED AUTHOR AUTHOR'S ORGANIZ ATION 01/31/2024 [facility] Care Teams (unrecognized sec tion and content) Team Status: Active Member Role Status Dates Sen Stlil MD Primary Care Provider Active Team Status: Inactive Member Role Status Dates Sen Still MD Primary Care Provider Active Start: January 17, 2024 End: January 17, 2024 Juan Manuel Keith Jr, MD Emergency Provider Active Start: January 17, 2024 End: January 17, 2024 Goals (unrecognized section and content) Goals may be documented in a n alternate section FOR RECORDS PERTAINING TO PATIENTS WHO ARE [...] BE BASED ON THE PRIMARY CLINICAL RECORDS. [employer] provides no warranty or guarantee of the accuracy or completeness of information in this document.
[2024-02-11 07:53] LABS: Bilirubin Urine NEGATIVE (NEGATIVE); Blood Urine NEGATIVE (NEGATIVE); Clarity Urine CLEAR (CLEAR); Color Urine LT. YELLOW (YELLOW); Glucose Urine UA NEGATIVE (NEGATIVE); Ketones Urine NEGATIVE (NEGATIVE); Leukocyte Esterase Urine NEGATIVE (NEGATIVE); Nitrite Urine NEGATIVE (NEGATIVE); Protein Urine NEGATIVE (NEG/TRACE); Urobilinogen Urine 0.2 EU/dL (0.2-1.0); pH Urine 6.5 (5.0-9.0)
[2024-02-11 08:00] LABS: Bacteria Urine TRACE #/HPF (NONE SEEN); Cast Seen? NONE SEEN #/LPF (NONE SEEN); Crystals Seen? None Seen #/HPF (None Seen); Mucus Urine NONE SEEN (NONE SEEN); RBC Urine 0-2 #/HPF (0-2); Squamous Epithelial Cell Urine MODERATE #/LPF (NONE/RARE); WBC Urine 0-2 #/HPF (NONE SEEN)
== END 2024-02-11 07:33 | disposition home or self-care (01) ==
LOC: LAB 07:34
PROVIDERS: PCP Family Medicine; Visit Provider Family Medicine
DX: R30.0 Dysuria (principal)
CPT/HCPCS: 81001; 87086

== ENCOUNTER 2024-06-20 07:11 | Outpatient (OUT) | payer BC, SELFPAY ==
--- OUTSIDE RECORDS SUMMARY | 2024-06-20 07:16 | XMS_ITS | CCD ---
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 Name Role Phone TARYN, GEORGE Unavailable Unavailable [...] Unavailable HOY ., DR CHATTERJEE Admitting Unavailable [place], DR MAXIMILIANO Martin Consulting Unavailable HOY ., DR CHATTERJEE Primary Care Unavailable MORGAN ., DR COOPER Attending Unavailable MORGAN ., DR COOPER Consulting Unavailable MORGAN ., DR COOPER Admitting Unavailable ALLISON MORA Attending Unavailable MD Sen Still Primary Care Provider [phone] MD Juan Manuel Keith Jr Emergency Provider Sen Still Primary Care Unavailable Juan Manuel Keith Jr Attending Unavailable Juan Manuel Keith Jr Admitting Unavailable Allergies Allergy Classification Reported Allergen(s) Allergy Type Date of Onset Reaction(s) Facility (1 source) No Known Medication Allergies; Translations: [No Known Medication Allergies] Propensity to adverse reactions to drug (disorder) [facility] Repository Medications Current Medications Medication Drug Class(es) [...] Auto Ql (U) Rare [HPF] None Seen [facility] Bilirubin Test strip Ql (U)O rdered By: Juan Manuel Kieth on 01-17-2024 Bilirubin Ql (U) Negative Negative [facility] Color of Urine by AutoOrdere d By: Juan Manuel Keith on 01-17-2024 Color (U) Yellow Normal Yellow [facility] Comment on above: Order Comment: Name Collection Type:: Clean-Voided Midstream Performed By: #### U HCG, ADDONUAPLUS, CUU #### [facility] [address] [place] [address] [place] Dipstick and Microscopicon 0 01-17-2024 Bacteria,Urine Rare Normal None Seen [facility] Comment on above: Order Comment: Name Collection Type:: Clean-Voided Midstream Performed By: #### U HCG, ADDONUAPLUS, CUU #### [facility] [address] [place] [id number] [place] Bilirubin,Urine Negative Normal Negative [facility] Comment on above: Order Comment: Name Collection Type:: Clean-Voided Midstream Performed By: #### U HCG, ADDONUAPLUS, CUU #### [facility] [address] [place] [id number] [place] Glucose Ql (U) Normal Normal Normal [facility] Comment on above: Order Comment: Name Collection Type:: Clean-Voided Midstream Performed By: #### U HCG, ADDONUAPLUS, CUU #### [address] Hyaline Casts,Urine None Normal 0-8 [facility] Comment on above: Order Comment: Name Collection Type:: Clean-Voided Midstream Performed By: #### U HCG, ADDONUAPLUS, CUU #### [address] Mucus,Urine 1+ Critically abnormal [facility] Comment on above: Order Comment: Name Collection Type:: Clean-Voided Midstream Performed By: #### U HCG, ADDONUAPLUS, CUU #### [address] Nitrite,Urine Negative Normal Negative [facility] Comment on above: Order Comment: Name Collection Type:: Clean-Voided Midstream Performed By: #### U HCG, ADDONUAPLUS, CUU #### [address] Occult Blood,Urine Trace High Negative [facility] Comment on above: Order Comment: Name Collection Type:: Clean-Voided Midstream Performed By: #### U HCG, ADDONUAPLUS, CUU #### [address] RBC,Urine 50-100 High 0-4 [facility] Comment on above: Order Comment: Name Collection Type:: Clean-Voided Midstream Performed By: #### U HCG, ADDONUAPLUS, CUU #### [address] Specificy [place],Urine 1.035 High 1.001-1.030 [facility] Comment on above: Order Comment: Name Collection Type:: Clean-Voided Midstream Performed By: #### U HCG, ADDONUAPLUS, CUU #### [address] Squamous Epithelial Cell,Urine 10-19 High 0-2 [facility] Comment on above: Order Comment: Name Collection Type:: Clean-Voided Midstream Performed By: #### U HCG, ADDONUAPLUS, CUU #### [address] Urobilinogen,Urine Normal Normal Normal [facility] Comment on above: Order Comment: Name Collection Type:: Clean-Voided Midstream Performed By: #### U HCG, ADDONUAPLUS, CUU #### [address] WBC,Urine 20-49 High 0-4 [facility] Comment on above: Order Comment: Name Collection Type:: Clean-Voided Midstream Performed By: #### U HCG, ADDONUAPLUS, CUU #### [address] Epithelial cells.squamous [# /area] in Urine sediment by Automated countOrdered By: Juan Manuel Keith on 01-17-2024 Epithelial cells.squamous Auto (Urine sed) [#/Area] 10-19 [HPF] High 0-2 [facility] Erythrocytes [#/area] in Uri ne sediment by Automated countOrdered By: Juan Manuel Keith on 01-17-2024 RBC Auto (Urine sed) [#/Area] 50-100 [HPF] High 0-4 [facility] Glucose [Mass/volume] in Uri ne by Test stripOrdered By: Juan Manuel Keith on 01-17-2024 Glucose Test strip (U) [Mass/Vol] Normal mg/dL Normal [facility] HCG ( test) IA.rapi d Ql (U)Ordered By: Juan Manuel Keith on 01-17-2024 HCG ( test) Ql (U) Negative [facility] HCG,Urineon 01-17-2024 Beta HCG ( test) Ql (U) Negative Normal [facility] Comment on above: Order Comment: Name Collection Type:: Clean-Voided Midstream Result Comment: PERF ORMED BY: [place] [address] PATHOLOGIST SKINNING MACHINE FEEDER JAZMINE ZAVALA M.D. Performed By: #### U HCG, ADDONUAPLUS, CUU #### [address] Hemoglobin Test strip Ql (U) Ordered By: Juan Manuel Keith on 01-17-2024 Hemoglobin Ql (U) Trace High Negative [facility] Hyaline casts [#/area] in Ur ine sediment by Automated countOrdered By: Juan Manuel Keith on 01-17-2024 Hyaline casts Auto (Urine sed) [#/Area] None [LPF] 0-8 [facility] Ketones [Presence] in Urine by Test stripOrdered By: Juan Manuel Keith on 01-17-2024 Ketones Ql (U) Negative Normal Negative [facility] Comment on above: Order Comment: Name Collection Type:: Clean-Voided Midstream Performed By: #### U HCG, ADDONUAPLUS, CUU #### [facility] [address] Leukocyte esterase [Presence ] in Urine by Test stripOrdered By: Juan Manuel Keith on 01-17-2024 Leukocyte esterase Test strip Ql (U) 4+ High Negative [facility] Comment on above: Order Comment: Name Collection Type:: Clean-Voided Midstream Performed By: #### U HCG, ADDONUAPLUS, CUU #### [facility] [address] [place] [address] [place] Leukocytes [#/area] in Urine sediment by Automated countOrdered By: Juan Manuel Keith on 01-17-2024 WBC Auto (Urine sed) [#/Area] 20-49 [HPF] High 0-4 [facility] Mucus [Presence] in Urine by AutomatedOrdered By: Juan Manuel Keith on 01-17-2024 Mucus Auto Ql (U) 1+ [LPF] Abnormal [facility] Nitrite Test strip Ql (U)Ord ered By: Juan Manuel Keith on 01-17-2024 Nitrite Ql (U) Negative Negative [facility] Protein [Mass/volume] in Uri ne by Test stripOrdered By: Juan Manuel Keith on 01-17-2024 Protein (U) [Mass/Vol] 20 mg/dL High Negative [facility] Comment on above: Order Comment: Name Collection Type:: Clean-Voided Midstream Performed By: #### U HCG, ADDONUAPLUS, CUU #### [facility] [address] [place] [address] [place] Specific gravity Test strip (U) [Rel density]Ordered By: Juan Manuel Keith on 01-17-2024 Specific gravity (U) [Rel density] 1.035 High 1.001-1.030 [facility] Urine Cultureon 01-17-2024 Bacteria identified Cx Nom (U) ORGANISM: Streptococcus anginosus (O:ISMA) [place] Count 75,000 Organism Comments Organism not Routinely Tested for Susceptibilities PERFORMED BY: [place] [address] PATHOLOGIST SKINNING MACHINE FEEDER JAZMINE ZAVALA M.D. Normal [facility] Comment on above: Performed By: #### U HCG, ADDONUAPLUS, CUU #### [facility] [address] [place] [address] Urine appearanceOrdered By: Juan Manuel Keith on 01-17-2024 Appearance (U) Cloudy Critically abnormal Clear [facility] Comment on above: Order Comment: Name Collection Type:: Clean-Voided Midstream Performed By: #### U HCG, ADDONUAPLUS, CUU #### [facility] [address] [place] [address] Urobilinogen Test strip (U) [Mass/Vol]Ordered By: Juan Manuel Keith on 01-17-2024 Urobilinogen (U) [Mass/Vol] Normal mg/dL Normal [facility] pH of Urine by Test stripOrd ered By: Juan Manuel Keith on 01-17-2024 pH (U) 6.0 [pH] Normal 5.0-9.0 [facility] Comment on above: Order Comment: Name Collection Type:: Clean-Voided Midstream Performed By: #### U HCG, ADDONUAPLUS, CUU #### [facility] [address] [place] [address] [place] Covid-19 PCR (CVDTBH)on SARS-CoV-2 (COVID-19) RNA JOHNNIE+probe Ql (Unsp spec) Not detected Normal NOT DETECTED [facility] Comment on above: Result Comment: This test is not yet approved or cleared by the [place] FDA. When there are no FDA-approved or cleared tests available, and other criteria are met, FDA can make tests available under an emergency access mechanism called an Emergency Use Authorization (EUA). The EUA for this test is supported by the [employer] of Health and Human Service's (HHS's) declaration [...] SARS-CoV-2. Performed By: #### C VDTBH #### [facility] [address] [place] [address] Dr. Eb Sol INSULINon 07-03-2022 Insulin 25.2 uIU/mL Critically high 2.6-24.9 [facility] Comment on above: Performed By: #### I NSULIN #### [facility] [address] [place] [address] Dr. Eb Sol CBC AUTO DIFFon 07-02-2022 BASO # 0.1 103/ul Normal 0.0-0.1 [facility] Comment on above: Performed By: #### C BC #### [facility] [address] [place] [address] Dr. Eb Sol Basophils/100 WBC (Bld) 1.2 % Normal 0.2-2.0 [facility] Comment on above: Performed By: #### C BC #### [facility] [address] [place] [address] Dr. Eb Sol EO # 0.2 103/ul Normal 0.0-0.7 [facility] Comment on above: Performed By: #### C BC #### [facility] [address] [place] [address] Dr. Eb Sol Eosinophils/100 WBC (Bld) 3.0 % Normal 0.9-7.0 [facility] Comment on above: Performed By: #### C BC #### [facility] [address] [place] [address] Dr. Eb Sol Erythrocyte distribution width (RBC) [Ratio] 12.8 % Normal 11.0-15.0 [facility] Comment on above: Performed By: #### C BC #### [facility] [address] [place] [address] Dr. Eb Sol Hematocrit (Bld) [Volume fraction] 39.7 % Normal 36.0-48.0 [facility] Comment on above: Performed By: #### C BC #### [facility] [address] [place] [address] Dr. Eb Sol Hemoglobin (Bld) [Mass/Vol] 13.8 g/dL Normal 12.0-16.0 [facility] Comment on above: Performed By: #### C BC #### [facility] [address] [place] [address] Dr. Eb Sol IG # 0.04 10e3/ul Critically high 0.00-0.03 [facility] Comment on above: Performed By: #### C BC #### [facility] [address] [place] [address] Dr. Eb Sol IG % 0.6 % Critically high 0.0-0.5 [facility] Comment on above: Performed By: #### C BC #### [facility] [address] [place] [address] Dr. Eb Sol LYMPH # 1.7 103/ul Normal 1.2-3.8 [facility] Comment on above: Performed By: #### C BC #### [facility] [address] [place] [address] Dr. Eb Sol Lymphocytes/100 WBC (Bld) 26.2 % Normal 20.5-60.0 [facility] Comment on above: Performed By: #### C BC #### [facility] [address] [place] [address] Dr. Eb Sol MANUAL DIFF REQ NO Normal [facility] Comment on above: Performed By: #### C BC #### [facility] [address] [place] [address] [address] Eb Sol MCH (RBC) [Entitic mass] 29.3 pg Normal 26.7-34.0 [facility] Comment on above: Performed By: #### C BC #### [facility] [address] [place] [address] Dr. Eb Sol MCHC (RBC) [Mass/Vol] 34.8 g/dL Normal 29.9-35.2 [facility] Comment on above: Performed By: #### C BC #### [facility] [address] [place] [address] Dr. Eb Sol MCV (RBC) [Entitic vol] 84.3 fL Normal 81.0-99.0 [facility] Comment on above: Performed By: #### C BC #### [facility] [address] [place] [address] Dr. Eb Sol MONO # 0.6 103/ul Normal 0.3-0.8 [facility] Comment on above: Performed By: #### C BC #### [facility] [address] [place] [address] Dr. Eb Sol Monocytes/100 WBC (Bld) 9.1 % Normal 1.7-12.0 [facility] Comment on above: Performed By: #### C BC #### [facility] [address] [place] [address] Dr. Eb Sol NEUT # 3.9 103/ul Normal 1.4-6.5 [facility] Comment on above: Performed By: #### C BC #### [facility] [address] [place] [address] Dr. Eb Sol Neutrophils/100 WBC (Bld) 59.9 % Normal 43.0-75.0 [facility] Comment on above: Performed By: #### C BC #### [facility] [address] [place] [address] Dr. Eb Sol Platelet mean volume (Bld) [Entitic vol] 10.4 fL Normal 9.5-13.5 [facility] Comment on above: Performed By: #### C BC #### [facility] [address] [place] [address] [address] Eb Sol PLT 312 103/ul Normal 150-450 [facility] Comment on above: Performed By: #### C BC #### [facility] [address] [place] [address] [address] Eb Sol RBC 4.71 106/ul Normal 4.20-5.40 [facility] Comment on above: Performed By: #### C BC #### [facility] [address] [place] [address] [address] Eb Sol WBC 6.6 103/ul Normal 4.0-11.0 [facility] Comment on above: Performed By: #### C BC #### [facility] [address] [place] [address] [address] Eb Sol FREE THYROXINE INDEX T7on FTI 2.18 Normal 1.30-4.50 [facility] Comment on above: Performed By: #### L IPID, CMP, T7, TSH #### [facility] [address] [place] [address] Dr. Eb Sol T3U 32.0 % Normal 30.0-39.0 [facility] Comment on above: Performed By: #### L IPID, CMP, T7, TSH #### [facility] [address] [place] [address] [address] Eb Sol T4 [Mass/Vol] 6.80 ug/dL Normal 4.80-13.90 [facility] Comment on above: Performed By: #### L IPID, CMP, T7, TSH #### [facility] [address] [place] [address] Dr. Eb Sol GLYCOHEMOGLOBIN A1Con 2022 ADA RECOMMENDATION SEE BELOW Normal [facility] Comment on above: Result Comment: ADA RECOMMENDED LIMIT 4.0 - 6.0 ADA THERAPEUTIC TARGET < 7.0 ACTION SUGGESTED > 7.0 Performed By: #### A 1C ####[facility] [address] [place] [address]Dr. Eb Sol Glucose [Mass/Vol] 117 mg/dL Normal [facility] Comment on above: Performed By: #### A 1C ####[facility] [address] [place], [place] [address]FsDr. Eb Sol HbA1c (Bld) [Mass fraction] 5.7 % Normal 4.5-6.2 [facility] Comment on above: Performed By: #### A 1C ####[facility] [address] [place], [place] [address]Dr. Eb Sol IRONon 07-02-2022 Iron [Mass/Vol] 97.0 ug/dL Normal 50.0-170.0 [facility] Comment on above: Performed By: #### I GOOD #### [facility] [address] [place] [address] [address] Eb Sol LIPID PROFILEon 07-02-2022 CHOL-HDL RATIO NORM SEE BELOW Normal [facility] Comment on above: Result Comment: 3.3 - 4.4 LOW RISK 4.4 - 7.1 AVERAGE RISK 7.1 - 11.0 MODERATE RISK >11.0 HIGH RISK Performed By: #### L IPID, CMP, T7, TSH #### [facility] [address] [place] [address] [address] Eb Sol Cholesterol [Mass/Vol] 247 mg/dL Critically high <=200 [facility] Comment on above: Performed By: #### L IPID, CMP, T7, TSH #### [facility] [address] [place] [address] [address] Eb Sol Cholesterol in HDL [Mass/Vol] 50 mg/dL Normal 40-60 [facility] Comment on above: Performed By: #### L IPID, CMP, T7, TSH #### [facility] [address] [id number] [address] Eb Sol Cholesterol in LDL [Mass/Vol] 153.0 mg/dL Normal [facility] Comment on above: Performed By: #### L IPID, CMP, T7, TSH #### [facility] [address] [id number] [address] Eb Sol Cholesterol.total/C holesterol in HDL [Mass ratio] 4.9 {ratio} Normal [facility] Comment on above: Performed By: #### L IPID, CMP, T7, TSH #### [facility] [address] [address] [address] Eb Sol HDL NORMAL > or = 60 mg/dl - LO W CARDIOVASCULAR RISK <40 mg/dl - HIGH CARDIOVASCULAR RISK Normal [facility] Comment on above: Performed By: #### L IPID, CMP, T7, TSH #### [facility] [address] [address] [address] Eb Sol LDL CALC NORMAL SEE BELOW Normal [facility] Comment on above: Result Comment: <100 mg/dl OPTIMAL 100 - 129 mg/dl NEAR OR ABOVE OPTIMAL 130 - 159 mg/dl BORDERLINE HIGH 160 - 189 mg/dl HIGH >190 mg/dl VERY HIGH Performed By: #### L IPID, CMP, T7, TSH #### [facility] [address] [address] [address] Eb Sol Triglyceride [Mass/Vol] 220 mg/dL Critically high <=150 [facility] Comment on above: Performed By: #### L IPID, CMP, T7, TSH #### [facility] [address] [address] [address] Eb Sol VLDL CALC 44.0 mg/dL Normal [facility] Comment on above: Performed By: #### L IPID, CMP, T7, TSH #### [facility] [address] [address] [address] Eb Sol MG MAMM SCREEN 3D MYRA CADon 07-02-2022 MG MAMM SCREEN 3D MYRA CAD Patient: KATHRYN CARTY Exam Date: 07/02/2022 : 1980 Gender:F Ordering : DR SEN STILL . Admission #: [id number] Family : Order #: [id number] CLICK HERE TO VIEW EXAM RADIOLOGY REPORT PROCEDURE: MAMMOGRAM SCREENING 3D BILATERAL CAD COMPARISON: None. INDICATIONS: Screening mammography Calculator Name NCI Breast Cancer Risk Assessment Tool 5 Year Breast Cancer Risk 0.60% Lifetime Breast Cancer Risk 9.80% Personal Breast Cancer No Personal Ovarian Cancer No Treatments None Family Cancers None LOCATION: [facility] BREAST COMPOSITION: Extremely dense, which lowers the [...] Nassar MD on 07/02/2022 at 08:41 Normal [facility] PROF 14(COMP METB)on 023 Albumin [Mass/Vol] 3.9 g/dL Normal 3.4-5.0 [facility] Comment on above: Performed By: #### L IPID, CMP, T7, TSH #### [facility] [address] [place] [address] Dr. Eb Sol Albumin/Globulin [Mass ratio] 1.1 {ratio} Normal [facility] Comment on above: Performed By: #### L IPID, CMP, T7, TSH #### [facility] [address] [address] [address] Eb Sol ALP [Catalytic activity/Vol] 65 U/L Normal 46-116 [facility] Comment on above: Performed By: #### L IPID, CMP, T7, TSH #### [facility] [address] [place] [address] Dr. Eb Sol ALT [Catalytic activity/Vol] 33 U/L Normal 14-59 [facility] Comment on above: Performed By: #### L IPID, CMP, T7, TSH #### [facility] [address] [address] [address] Eb Sol Anion gap [Moles/Vol] 16.4 mmol/L Normal [facility] Comment on above: Performed By: #### L IPID, CMP, T7, TSH #### [facility] [address] [address] [address] Eb Sol AST [Catalytic activity/Vol] 21 U/L Normal 15-37 [facility] Comment on above: Performed By: #### L IPID, CMP, T7, TSH #### [facility] [address] [place] [address] Dr. Eb Sol Bilirubin [Mass/Vol] 0.4 mg/dL Normal 0.2-1.0 [facility] Comment on above: Performed By: #### L IPID, CMP, T7, TSH #### [facility] [address] [place] [address] Dr. Eb Sol Calcium [Mass/Vol] 9.2 mg/dL Normal 8.5-10.1 [facility] Comment on above: Performed By: #### L IPID, CMP, T7, TSH #### [facility] [address] [place] [address] Dr. Eb Sol Chloride [Moles/Vol] 104 mmol/L Normal 98-107 [facility] Comment on above: Performed By: #### L IPID, CMP, T7, TSH #### [facility] [address] [place] [address] Dr. Eb Sol CO2 [Moles/Vol] 23.8 mmol/L Normal 21.0-32.0 [facility] Comment on above: Performed By: #### L IPID, CMP, T7, TSH #### [facility] [address] [place] [address] Dr. Eb Sol Creatinine [Mass/Vol] 0.97 mg/dL Normal 0.55-1.02 [facility] Comment on above: Performed By: #### L IPID, CMP, T7, TSH #### [facility] [address] [place] [address] Dr. Eb Sol EGFR-AF ROMANIAN >60 Normal >=60 [facility] Comment on above: Performed By: #### L IPID, CMP, T7, TSH #### [facility] [address] [place] [address] Dr. Eb Sol EGFR-NON AF ROMANIAN >60 Normal >=60 [facility] Comment on above: Performed By: #### L IPID, CMP, T7, TSH #### [facility] [address] [place] [address] Dr. Eb Sol Globulin (S) [Mass/Vol] 3.6 g/dL Normal [facility] Comment on above: Performed By: #### L IPID, CMP, T7, TSH #### [facility] [address] [address] [address] Eb Sol Glucose [Mass/Vol] 119 mg/dL Critically high 74-106 [facility] Comment on above: Performed By: #### L IPID, CMP, T7, TSH #### [facility] [address] [address] [address] Eb Sol Potassium [Moles/Vol] 4.2 mmol/L Normal 3.5-5.1 [facility] Comment on above: Performed By: #### L IPID, CMP, T7, TSH #### [facility] [address] [place] [address] Dr. Eb Sol Protein [Mass/Vol] 7.5 g/dL Normal 6.4-8.2 [facility] Comment on above: Performed By: #### L IPID, CMP, T7, TSH #### [facility] [address] [place] [address] Dr. Eb Sol Sodium [Moles/Vol] 140 mmol/L Normal 136-145 [facility] Comment on above: Performed By: #### L IPID, CMP, T7, TSH #### [facility] [address] [place] [address] Dr. Eb Sol Urea nitrogen [Mass/Vol] 16.0 mg/dL Normal 7.0-18.0 [facility] Comment on above: Performed By: #### L IPID, CMP, T7, TSH #### [facility] [address] [place] [address] Dr. Eb Sol Urea nitrogen/Creatinine [Mass ratio] 16.5 mg/mg Normal [facility] Comment on above: Performed By: #### L IPID, CMP, T7, TSH #### [facility] [address] [place] [address] Dr. Eb Sol TSHon 07-02-2022 TSH 3.367 uIU/mL Normal 0.358-3.740 [facility] Comment on above: Performed By: #### L IPID, CMP, T7, TSH #### [facility] [address] [place] [address] Dr. Eb Sol PAP ACOG PANEL 2: 30 to 65on 04-29-2022 . . Normal [facility] Comment on above: Result Comment: Perf ormed at: WB Performed By: #### 4 [id number] #### [facility] [address] [address] [address] Eb Sol Age Gdln ACOG Testing 30-65 Normal [facility] Comment on above: Performed By: #### 4 [id number] #### [facility] [address] [place] [address] Dr. Eb Sol DIAGNOSIS: Comment Normal [facility] Comment on above: Result Comment: NEGA TIVE FOR INTRAEPITHELIAL LESION OR MALIGNANCY. Performed at: WB Performed By: #### 4 [id number] #### [facility] [address] [place] [address] Dr. Eb Sol HPV Aptima Negative Normal Negative [facility] Comment on above: Result Comment: This nucleic acid amplification test detects fourteen high-risk HPV types (16,18,31,33,35,39,45,51,52,56,58,59,66,68) without differentiation. Performed at: =G Performed By: #### 4 [id number] #### [facility] [address] [place] [address] Dr. bE Sol HPV Genotype Reflex Comment Normal [facility] Comment on above: Result Comment: Crit eria not met, HPV Genotype not performed. Performed at: WB Performed By: #### 4 [id number] #### [facility] [address] [place] [address] Dr. Eb Sol Methodology: Comment Normal [facility] Comment on above: Result Comment: This liquid based ThinPrep(R) pap test was screened with the use of an image guided system. Performed at: WB Performed By: #### 4 [id number] #### [facility] [address] [place] [address] Dr. Eb Sol Note: Comment [facility] Comment on above: Result Comment: The Pap smear is a screening test designed to aid in the detection of premalignant and malignant conditions of the uterine cervix. It is not a diagnostic procedure and should not be used as the sole means of detecting cervical cancer. Both false-positive and false-negative reports do occur. . Performed at: WB Performed By: #### 4 [id number] #### [facility] [address] [address] [address] Eb Sol Performed by: Comment Normal [facility] Comment on above: Result Comment: Esperanza Parmar, Manufactured Buildings Repairer (ASCP) Performed at: WB Performed By: #### 4 [id number] #### [facility] [address] [address] [address] Eb Sol Specimen adequacy: Comment [facility] Comment on above: Result Comment: Sati sfactory for evaluation. Endocervical and/or squamous metaplastic cells (endocervical component) are present. Performed at: WB Performed By: #### 4 [id number] #### [facility] [address] [address] [address] Eb Sol Intraoperative Noteon 2017 Intraoperative Note [id number]#1.00[facility] Intraoperative [facility]on 2017 Intraoperative Note [id number]#1.00[facility] History and Physicalon 04-19 History and Physical [id number]#1.00[facility] Operative Report - Surgeon/P pinky 04-19-2017 Operative Report - Surgeon/Physician [id number]#1.00[facility] Provider Orderson 04-19-2017 Provider Orders [id number]#1.00[facility] Provider Orders [id number]#1.00[facility] Coding Summaryon 03-28-2017 Coding Summary CODING DATE: 017 [facility] STATUS: Home PAYOR: Commercial Insurance APC DESCRIPTION 5361 Level 1 Laparoscopy and Related Services ADMIT DX: REASON FOR VISIT DX: R10.2 Pelvic and perineal pain N83.201 Unspecified ovarian cyst, right side FINAL DX: PRINCIPAL: N83.11 Corpus luteum cyst of right ovary SECONDARY: Z72.0 Tobacco use PYMT PROC APC STAT DESCRIPTION DOCTOR NAME DATE 21545 5361 J1 Laparoscopy, surgical; Taryn DHILLON George [...] Katelyn Robertson Date Saved: 03/28/2017 07:[address] [facility] Intraoperative Noteon 2016 Intraoperative Note [id number]#1.00[facility] Lab - Other Lab Resultson Lab - Other Lab Results [id number]#1.00[facility] Pathology Sendout Teston Pathology Send Out. See Report [facility] Comment on above: Order Comment: RIGHT OVARY AND TUBE Performed By: #### 2 [id number] ####[facility] (DEFAULT)[address] [place] [address] Consent Formson 03-20-2017 Consent Forms [id number]#1.00[facility] Consent Forms [id number]#1.00[facility] Telemetry Stripson 7 Telemetry Strips [id number]#1.00OTGTIFF [facility] Anesthesia Noteon 03-19-2017 Anesthesia Note Patient: KATHRYN CARTY : 37 years Sex: FEMALE : [birth year]Associated Diagnoses: NoneAuthor: Maximilaino Casonostoperative InformationPost Operative Note: Post Anesthesia Care Unit.Review / ManagementCondition: Stable.AssessmentAnesthetic outcomeNo anesthetic complications noted.PlanTransfer/ Discharge: Patient can be discharged from PACU when criteria met.Condition good.[Electronically Signed on: 03/19/2017 10:26 EST] Maximiliano Cason DO[Verified on: 03/19/2017 10:26 EST] Maximiliano Cason DO [facility] Anesthesia Note Patient: KATHRYN CARTY : [...] mg oral tablet 1 tab(s), PRN, PO, j9mdDtbbpvh list (past medical history):All ProblemsHTN (hypertension) / SNOMED CT 8568093631 / ConfirmedHistoriesFamily History:No family history items have been selected or recorded.Procedure history:Laparoscopy (710031111) on 01/22/2017 at 37 Years.Carpal tunnel release ([id number]).Comments: 7 13:22 - Joanne Rollins RNright sideCesarean section (11109026).Comments:01/16/2017 13:23 - Joanne Rollins RNtimes 1Social History Alcohol Assessment Use: Current. 1-2 times per year Tobacco Assessment Comment: states uses the e-ciggs (throughout the day) Substance Abuse Assessment Substance use: Never..Social & Psychosocial WeofcpXrnrzcb87/20/2017 Alcohol Use: Current Frequency: 1-2 times per [...] EST] Maximiliano Cason DO Normal [facility] Inpatient Clinical Summaryon 03-19-2017 Inpatient Clinical Summary [facility] SURGERYClinical Discharge SummaryPERSON INFORMATIONName KATHRYN CARTY Age 37 Years 82Sex FEMALE Language Macedonian PCP Surekha STILL [facility] [id number] Acct# Arrival 03/19/17 06:44:53Visit Reason dx laparoscopy Acuity LOS 004 23:46Address:[address] [place], [place] [address]Comment:PROVIDER INFORMATIONVITALS INFORMATIONVital Sign Triage LatestTemp OralTemp Temporal 36.3 DegC 35.9 DegCTemp IntravascularTemp AxillaryTemp Hvrvyf20 Sat 99 % 100 %Respiratory Rate 14 [...] mg Oral every dayDiscontinue These Medications:acetaminophen-hyd rocodone (Memphis 5 mg-325 mg oral tablet) 1 tab(s) [...] Centeno (MHKHARRISON)Follow up:With: Address: When:George Centeno [address] [place], [place] [id number] Business (1) In 2 weeks 04/02/17Comments:Call for follow up appointmentWith: Address: When:SEN STILL [address] [facility], [facility] [address] [place], [place] [id number] Business (1)DIAGNOSIS1:Pelvic pain; 2:Ovarian cyst, rightComment:PHYS DOC NOTES Normal [facility] Inpatient Patient Summaryon 03-19-2017 Inpatient Patient Summary [address] [id number] patient Discharge InstructionsName: KATHRYN CARTYOB: 82 Address: [address] [place] [address] Care Provider:Name: SEN STILLPhone: After you are discharged if you find you have any questions, please, call [phone] ext [phone] to speak to a nurse.Discharge [...] decisions or sign any legal documentsPremier Health [facility] would like to thank you for allowing us to assist you with your healthcare needs. The following includes patient education materials and information regarding your injury/illness.KATHRYN CARTY has been given the following list of follow-up instructions, prescriptions, and patient education materials:Follow-up InstructionsWith: Address: When:George Centeno [address] [place], [place] [id number] Business (1) In 2 weeks 04/02/17Comments:Call for follow up appointmentWith: Address: When:SEN STILL [address] [facility], [place] [address] Business (1)MedicationsDuring the course of your visit, [...] day.No Longer Take the Following Medicationsacetaminophen-hydr ocodone (Memphis 5 mg-325 mg oral tablet) 1 tab(s) [...] the throat and abdomen.HOME CARE INSTRUCTIONS? Take eotq-hvm-uelyyuh and prescription medicines only as told by [...] and water are not available, use hand process owner.? Change your dressings (Band Aids) daily after [...] Document Reviewed: 03/26/2016Sj Interactive Patient Education ?2016 [employer].Viruses or BacteriaWhat?s got you sick?Antibiotics only treat [...] Antibiotics Trista.[place]. Department of Health and Human ServicesWhite Hospitalers for Disease Control and Prevention December 2013 [facility] MAGR Intraoperative Recordon 03-19-2017 MAGR Intraoperative Record MAGR Intra-Op Record Summary Primary Physician: George Centeno DO Finalized Date/Time: 03/19/17 13:24:14 Pt. Name: CARLOZKATHRYN/Sex: 1980 FEMALE Med Rec #: [id number] Physician: George Centeno DO Financial #: [id number] Pt. Type: D Room/Bed: / Admit/Disch: 03/19/17 [...] Role Performed Surgeon - Primary Anesthesiologist of Water Control Station Engineer Record Time In 03/19/17 09:04:00 03/19/17 09:04:00 03/19/17 09:04:00 Time Out 03/19/17 10:20:00 03/19/17 10:20:00 03/19/17 10:20:00 Procedure Laparoscopy Diagnostic Laparoscopy Diagnostic Laparoscopy Diagnostic Last Modified By: Valencia Johnson RN, Stephanie RN Sauer, Stephanie RN 03/19/17 13:19:07 03/19/17 13:19:07 03/19/17 13:19:07 Entry 4 Entry 5 Case Attendee Michelle Ackerman CST, Stephanie RN Role Performed Scrub Personnel Sap Bobj Developer Time In 03/19/17 09:04:00 03/19/17 09:04:00 Time [...] Methods Clipper Hair Removal By Magdalena Love ORTHOTIC TECHNICIAN Hair Removal Site Pubis Outcome Met (O.100) [...] Initial Count Sharps Performed By Michelle Ackerman [facility] Initial Count Time 03/19/17 08:48:00 Counts Verification Final Counts Items Included in Sponges, Sharps Final Count Status Correct Final Count Final Counts Valencia Johnson RN, Final Count Time 03/19/17 09:55:00 Performed By Michelle Ackerman [facility] Surgeon notified of Yes final counts [...] Signed By: Valencia Johnson RN 03/19/17 13:24 [facility] MAGR PACU Recordon 7 MAGR PACU Record MAGR PACU Record [facility] Primary Physician: George Centeno DO Finalized Date/Time: 03/19/17 11:29:42 Pt. Name: KATHRYN CARTY D.O.B./Sex: 1980 FEMALE Med Rec #: [id number] Physician: George Centeno DO Financial #: [id number] Pt. Type: D Room/Bed: / Admit/Disch: 03/19/17 [...] Signed By: Linda Bledsoe RN 03/19/17 11:29 [facility] MAGR Postoperative Recordon 03-19-2017 MAGR Postoperative Record MAGR Phase II Record Summary Primary Physician: George Centeno DO Finalized Date/Time: 03/19/17 12:16:03 Pt. Name: KATHRYN CARTY D.O.B./Sex: 1980 FEMALE Med Rec #: [id number] Physician: George Centeno DO Financial #: [id number] Pt. Type: D Room/Bed: / Admit/Disch: 03/19/17 [...] Signed By: Giles Nelson RN 03/19/17 12:16 [facility] MAGR Preoperative Recordon 1 05-19-2016 MAGR Preoperative Record MAGR Pre-Op Record Summary Primary Physician: George Centeno DO Finalized Date/Time: 03/19/17 11:10:59 Pt. Name: CARLOZ KATHRYNMIGUEL ANGEL Holder/Sex: 1980 FEMALE Med Rec #: [id number] Physician: George Centeno DO Financial #: [id number] Pt. Type: D Room/Bed: / Admit/Disch: 03/19/17 [...] Signed By: Giles Nelson RN 03/19/17 11:10 [facility] Operative Report - Surgeon/P pinky 03-19-2017 [...] then grasped with a single toothtenaculum. An [place] uterine manipulator was then advanced into the [...] room, awake and in stablecondition.SHAMIR Paul #: [id number]: 03/19/2017T: 03/19/2017[Electronically Signed on: 03/26/2017 07:50 EST] George Centeno DO, D.O.[Verified on: 03/26/2017 07:50 EST] George Centeno DO, D.O.[Transcribed on: 03/19/2017 13:00 EST]GDU [facility] Test Urine 1on U Preg Negative [facility] Comment on above: Result Comment: Call santiago Giles W 03/19/2017 09:03:33 EST Performed By: #### 3 [id number] ####[facility] (DEFAULT)[address] [place] [address] U Preg Internal Control Pass [facility] Comment on above: Performed By: #### 3 [id number] ####[facility] (DEFAULT)[address] [place] [address] Progress Note - Nurseon 02-28 Progress Note - Nurse Preop call completed, patient arriving at 0700 on 03/19/17....preop instructions reviewed[Electronically Signed on: 03/18/2017 13:08 EST] Loren Chaves RN[Verified on: 03/18/2017 13:08 EST] Loren Chaves RN [facility] History and Physicalon 02-11 History and Physical [id number]#1.00[facility] Operative Report - Surgeon/P hysicilolin 02-11-2017 Operative Report - Surgeon/Physician [id number]#1.00[facility] Provider Orderson 02-11-2017 Provider Orders [id number]#1.00[facility] MAGR Preoperative Recordon 1 MAGR Preoperative Record MAGR Pre-Op Record Summary Primary Physician: George Centeno DO Finalized Date/Time: 02/07/17 10:42:56 Pt. Name: KATHRYN CARTY/Sex: 1980 FEMALE Med Rec #: [id number] Physician: George Centeno DO Financial #: [id number] Pt. Type: D Room/Bed: / Admit/Disch: 01/22/17 [...] Signed By: Joanne Rollins RN 02/07/17 10:42 [facility] MAGR Intraoperative Recordon 01-29-2017 MAGR Intraoperative Record MAGR Intra-Op Record Summary Primary Physician: George Centeno DO Finalized Date/Time: 01/29/17 12:54:01 Pt. Name: CARLOZKATHRYN/Sex: 1980 FEMALE Med Rec #: [id number] Physician: George Centeno DO Financial #: [id number] Pt. Type: D Room/Bed: / Admit/Disch: 01/22/17 [...] Role Performed Surgeon - Primary Anesthesiologist of Sap Bobj Developer Record Time In 01/22/17 07:57:00 01/22/17 07:57:00 01/22/17 07:57:00 Time Out 01/22/17 09:20:00 01/22/17 09:20:00 01/22/17 09:20:00 Procedure Laparoscopy Diagnostic Laparoscopy Diagnostic Laparoscopy Diagnostic Last Modified By: Valencia Johnson RN, Stephanie RN Sauer, Stephanie RN 01/22/17 12:14:56 01/22/17 12:14:56 01/22/17 12:14:56 Entry 4 Entry 5 Entry 6 Case Attendee Valencia Johnson RN, Lauren M CST Nikolaus, Linda M Role Performed Sap Bobj Developer Scrub Personnel Water Control Station Engineer Time In 01/22/17 07:57:00 01/22/17 07:57:00 01/22/17 [...] Met (O.100) Yes Last Modified By: Valencia Johsnon RN 01/22/17 08:34:15 Post-Care Text: E.10 Evaluates [...] Count Performed By Noah COOMBS Lauren M ORTHOTIC TECHNICIAN Initial Count Time 01/22/17 07:20:00 Counts Verification Final Counts Items Included in Sponges, Sharps Final Count Status Correct Final Count Final Counts Milagro Isaacs Final Count Time 01/22/17 08:56:00 Performed By Noah COOMBS Lauren M ORTHOTIC TECHNICIAN Surgeon notified of Yes final counts status [...] List 01/29/17 12:53 MHBSOFIAK Correct Documentation Normal [facility] Coding Summaryon 01-24-2017 Coding Summary CODING DATE: 017 [facility] STATUS: Home PAYOR: Commercial Insurance APC DESCRIPTION 5361 Level 1 Laparoscopy and Related Services ADMIT DX: REASON FOR VISIT DX: R10.2 Pelvic and perineal pain FINAL DX: PRINCIPAL: N83.201 Unspecified ovarian cyst, right side SECONDARY: 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 Consent Formson 01-23-2017 Consent Forms [id number]#1.00[facility] Intraoperative Noteon 2016 Intraoperative Note [id number]#1.00[facility] Intraoperative Note [id number]#1.00[facility] Medication Managementon 12-29 Medication Management [id number]#1.00[facility] Telemetry Stripson Telemetry Strips [id number]#1.00[facility] Anesthesia Noteon 01-22-2017 Anesthesia Note Patient: KATHRYN CARTY : 37 years Sex: FEMALE : [birth year]Associated Diagnoses: NoneAuthor: Ventura Lui MDPostoperative InformationPost Operative NoteHealth StatusAllergies:Allergic Reactions (All)No Known Medication AllergiesProblem list (past medical history):All ProblemsHTN (hypertension) / SNOMED CT 9594189248 / ConfirmedPhysical ExaminationVS/MeasurementsVit al Signs (last 24 [...] on: 01/22/2017 09:29 EDT] Ventura Lui MD [facility] Anesthesia Note Patient: KATHRYN CARTY : [...] medical history):All ProblemsHTN (hypertension) / SNOMED CT 9367314008 / ConfirmedHistoriesFamily History:No family history items have been selected or recorded.Procedure history:Carpal tunnel release ([id number]).Comments: 7 13:22 - Joanne Rollins RNright sideCesarean section ([id number]).Comments:01/16/2017 13:23 - Joanne Rollins RNtimes 1Social History Alcohol Assessment Use: Current. 1-2 times per year Tobacco Assessment Comment: states uses the e-ciggs (throughout the day) Substance Abuse Assessment Substance use: Never..Social & Psychosocial GhrmekTxktbcv90/20/2017 Alcohol Use: Current Frequency: 1-2 times per [...] 01/22/2017 07:38 EDT] Ventura Lui MD Normal [facility] Standardon 01-22-2017 eGFR (non-black) mL/min/{1.73_m2} Invalid Interpretation Code [facility] Comment on above: Performed By: #### 1 [id number] ####[facility] (DEFAULT)[address] [place] [address] Result Comment: New Product Trainer berna Kidney disease could be indicated at eGFRs of less than 60 ml/min/1.73m2. Kidney Failure is indicated at less than 15 ml/min/1.73m2 Anion gap 11.0 mmol/L Normal 5.0-19.0 [facility] Comment on above: Performed By: #### 1 [id number] ####[facility] (DEFAULT)[address] [place] [address] BUN/Creatinine Ratio 26.0 mg/mg High 4.6-16.2 [facility] Comment on above: Performed By: #### 1 [id number] ####[facility] (DEFAULT)[address] [place] [address] Calcium 9.1 mg/dL Normal 8.9-10.3 [facility] Comment on above: Performed By: #### 1 [id number] ####[facility] (DEFAULT)[address] [place] [address]34 Chloride 107 mmol/L Normal 101-111 [facility] Comment on above: Performed By: #### 1 [id number] ####[facility] (DEFAULT)[address] [place] [address] 70251 CO2 24 mmol/L Normal 21-32 [facility] Comment on above: Performed By: #### 1 [id number] ####[facility] (DEFAULT)[address] [place] [address]508 Creatinine 0.81 mg/dL Normal 0.60-1.30 [facility] Comment on above: Performed By: #### 1 [id number] ####[facility] (DEFAULT)[address] [place] [address] 16862 Glucose mass conc 106.0 mg/dL Normal 74.0-118.0 [facility] Comment on above: Performed By: #### 1 [id number] ####[facility] (DEFAULT)[address] [place] [address]7811 Osmolality 279 mOsm/L Invalid Interpretation Code [facility] Comment on above: Performed By: #### 1 [id number] ####[facility] (DEFAULT)[address] [place] [address] 66069 Potassium molar conc 4.2 mmol/L Normal 3.6-5.1 [facility] Comment on above: Performed By: #### 1 [id number] ####[facility] (DEFAULT)[address] [place] [address] 97579 Sodium 138.0 mmol/L Normal 136.0-144.0 [facility] Comment on above: Performed By: #### 1 [id number] ####[facility] (DEFAULT)[address] [place] [address] 83682 Urea nitrogen 21 mg/dL Normal 8-26 [facility] Comment on above: Performed By: #### 1 [id number] ####[facility] (DEFAULT)[address] [place] [address] Inpatient Clinical Summaryon 01-22-2017 Inpatient Clinical Summary [facility] SURGERYClinical Discharge SummaryPERSON INFORMATIONName KATHRYN CARTY Age 37 Years 81Sex FEMALE Language Macedonian PCP Surekha STILL Status Med Service Ambulatory SurgeryMRN [id number] Acct# Arrival 01/22/17 06:06:27Visit Reason SURGERY - DX LAPAROSCOPY Acuity LOS 033 20:21Address:[address] [facility] [address]Ifymafj:PROVIDER INFORMATIONVITALS INFORMATIONVital Sign Triage LatestTemp OralTemp Temporal 36.3 DegC 36.3 DegCTemp IntravascularTemp AxillaryTemp Pqvstg61 Sat 97 % 92 %Respiratory Rate 16 br/min 18 br/minPeripheral Pulse Rate 83 bpm 66 bpmApical Heart RateBlood Pressure 124 mmHg / 82 mmHg 123 mmHg / 88 mmHgComment:MEDICAL INFORMATIONAllergy Info:No Known Medication AllergiesPrescriptions Given:Prescription Displayacetaminophen-hydrocod one (Memphis 5 mg-325 mg oral tablet) 1 tab(s), [...] ), PO, DailyMedication List:Fill New Prescriptions:acetaminophen-h ydrocodone (Memphis 5 mg-325 mg oral tablet) 1 tab(s) [...] Centeno (MHKHARRISON)Follow up:With: Address: When:George Centeno [address] [place] [address] Business (1) In 2 weeks 02/05/17Comments:Call for follow up appointmentWith: Address: When:SEN STILL [address] [place] [address] Business (1)DIAGNOSISPelvic painComment:PHYS DOC NOTES Normal [facility] Inpatient Patient Summaryon 01-22-2017 Inpatient Patient Summary [address] [place], [place] [id number] patient Discharge InstructionsName: KATHRYN CARTYOB: 82 Address: [address] [place] [address] Care Provider:Name: SEN STILLPhone: Discharge Diagnosis: Pelvic [...] decisions or sign any legal documentsPremier Health [facility] would like to thank you for allowing us to assist you with your healthcare needs. The following includes patient education materials and information regarding your injury/illness.KATHRYN CARTY has been given the following list of follow-up instructions, prescriptions, and patient education materials:Follow-up InstructionsWith: Address: When:George Centeno [address] [id number] Business (1) In 2 weeks 02/05/17Comments:Call for follow up appointmentWith: Address: When:ESN STILL [facility] [place] [address] Business (1)MedicationsDuring the course of your visit, your medication list was updated with the most current information. The details of those changes are reflected below:New MedicationsPrinted Prescriptionsacetaminophen-hy drocodone (Memphis 5 mg-325 mg oral tablet) 1 tab(s) [...] list that you can keep with you.acetaminophen-hydrocodone (Memphis 5 mg-325 mg oral tablet) 1 tab(s) [...] the throat and abdomen.HOME CARE INSTRUCTIONS? Take dzef-rui-ngjisnr and prescription medicines only as told by [...] and water are not available, use hand process owner.? Change your dressings (Band Aids) daily after [...] Document Reviewed: 03/26/2016Kathyevady Interactive Patient Education ?2016 [employer]. Viruses or BacteriaWhat?s got you sick?Antibiotics only [...] for Disease Control and Prevention December 2013 [facility] 7 [facility] PAC[facility] Record [facility] [facility] [place] [facility] Record [facility] Primary Physician: George Centeno DO Finalized Date/Time: 01/22/17 10:25:13 Pt. Name: KATHRYN CARTY/Sex: 1980 FEMALE Med Rec #: [id number] Physician: George Centeno DO Financial #: [id number] Pt. Type: D Room/Bed: / Admit/Disch: 01/22/17 [...] TO PACU II AND CARE CONT PER NOTE SPECIALIST. Finalized By: Lillie Main Document Signatures Signed By: Lillie Main 01/22/17 10:25 [facility]-22-2017 [facility] Postoperative Record [facility] II Record Summary Primary Physician: George Centeno DO Finalized Date/Time: 01/22/17 11:05:19 Pt. Name: KATHRYN CARTY/Sex: 1980 FEMALE Med Rec #: [id number] Physician: George Centeno DO Financial #: [id number] Pt. Type: D Room/Bed: / Admit/Disch: 01/22/17 [...] Signed By: Lillie Main 01/22/17 11:05 Normal [facility] Operative Report - Surgeon/P pinky 01-22-2017 Operative [...] Blood in the cul-de-sac was noted andStryker cost manager was then placed into the second [...] awake and in stable condition.SHAMIR Paul #: [id number]: 01/22/2017T: 01/22/2017[Electronically Signed on: 01/22/2017 12:53 EDT] George Centeno DO, D.O.[Verified on: 01/22/2017 12:53 EDT] George Centeno DO, D.O.[Transcribed on: 01/22/2017 11:14 EDT]GDU Normal [facility] Test Urine 1on U Preg Negative [facility] Comment on above: Result Comment: Nega tive Performed By: #### [id number] ####[facility] (DEFAULT)[address] [place] [address] U Preg Internal Control Pass [facility] Comment on above: Result Comment: Pass Performed By: #### [id number] ####[facility] (DEFAULT)[address] [place] [address] Vital Signs Date Time Vital Sign Value Performing Clinician Zora linares 01-17-2024 02:170400 Body height 160.02 cm MD Sen Still Work Phone: [facility] 01-17-2024 02:170400 Body temperature 98.1 [degF] MD Sen Still Work Phone: [facility] 01-17-2024 02:17-040 Body weight 77.95 kg MD Sen Still Work Phone: [facility] 01-17-2024 02:17040 Diastolic blood pressure 109 mm[Hg] MD Sen Still Work Phone: [facility] 01-17-2024 02:17-0400 Heart rate 86 /min MD Sen Still Work Phone: [facility] 01-17-2024 02:17-0400 Respiratory rate 18 /min MD Sen Still Work Phone: [facility] 01-17-2024 02:17-0400 SaO2% (BldA) [Mass fraction] 95 % MD Sen Still Work Phone: [facility] 01-17-2024 02:17-0400 Systolic blood pressure 167 mm[Hg] MD Sen Still Work Phone: [facility] Encounters Encounter Date Encounter Type Care Provider Facility Start: 01-17-2024 End: 01-17-2024 Emergency department patient visit MD Sen Still Work Phone: [facility] Work Phone: Start: 10-24-2023 End: 10-24-2023 ambulatory ALLISON MORA Not Available Start: 08-27-2022 End: 08-28-[address] SEN STILL . Facility: Start: 07-03-2022 Encounter for genera l adult medical examination without abnormal findings DR SEN STILL . [facility] Start: 07-02-2022 End: 07-03-[address] SEN STILL . Facility: Start: 07-02-2022 End: 07-03-2022 Encounter for general adult medical examination without abnormal findings DR SEN STILL . Facility: Start: 04-17-2022 End: 04-17-[address] SEN STILL . Facility: Start: 03-19-2017 End: 03-19-2017 [facility] Start: 03-14-2017 Ambulatory [facility] Facility: [facility] Start: 01-22-2017 End: 01-22-2017 Ambulatory [facility] Facility:[facility] Start: 01-17-2017 End: 01-17-2017 Ambulatory [facility] Facility:[facility] Plan of Treatment Date Care Activity Detail Author Start: 01-17-2024 Bacteria identified in Urine by Culture [facility] Patient Education Urinary Tract Infection, Adult ED Vaginal Yeast Infection, Adult ED [facility] Work Phone: Patient referral [facility] Work Phone: Payers Date Payer Category Payer Self-pay [id number] 2017 Private Health Insurance [id number] 1980 Unknown [id number] 1980 Unknown [id number] 1980 Unknown [id number] 1980 Unknown [id number] 1958 Private Health Insurance [id number] 1958 Unknown [id number] Private Health Insurance [employer] [id number] Unknown [id number] Worker's Compensation [id number] Social History Date Type Detail Facility Start: 01-17-2024 Tobacco smoking stat [facility] Smoker (finding) [facility] Start: 1980 Sex Assigned At Female F [facility] Evaluation note Note Date & Type Note Facility Evaluation note No assessment information availa ble [facility] Work Phone: Hospital Discharge instructions Note Date & Type Note Facility Hospital Discharge instructions Additional Instructions Follow-up with your doctor. We are always happy to see you here if you need our help. [facility] Work Phone: Summary Purpose Family History [...] CREATED AUTHOR AUTHOR'S ORGANIZ ATION 08/31/2022 [facility] DATE CREATED AUTHOR AUTHOR'S ORGANIZ ATION 10/25/2023 [facility] EPIC DATE CREATED AUTHOR AUTHOR'S ORGANIZ ATION 01/31/2024 [facility] Care Teams (unrecognized sec tion and content) Team Status: Active Member Role Status Dates Sen Still MD Primary Care Provider Active Team Status: [...] BE BASED ON THE PRIMARY CLINICAL RECORDS. [employer] provides no warranty or guarantee of the accuracy or completeness of information in this document.
[2024-06-20 07:25] LABS: Basophils Absolute Auto 0.1 10^3/uL (0.0-0.1); Basophils Percent Auto 1.3 % (0.2-2.0); Eosinophils Absolute Auto 0.1 10^3/uL (0.0-0.7); Eosinophils Percent Auto 2.2 % (0.9-7.0); Hematocrit 43.5 % (36.0-48.0); Hemoglobin 14.6 g/dL (12.0-16.0); Immature Granulocytes Abs Auto 0.02 10^3/uL (0.00-0.03); Immature Granulocytes Pct Auto 0.3 % (0.0-0.5); Lymphocytes Absolute Auto 1.8 10^3/uL (1.2-3.8); Lymphocytes Percent Auto 29.2 % (20.5-60.0); Mean Corpuscular HGB Conc 33.6 g/dL (29.9-35.2); Mean Corpuscular Hemoglobin 29.9 pg (26.7-34.0); Mean Platelet Volume 10.2 fL (9.5-13.5); Monocytes Absolute Auto 0.6 10^3/uL (0.3-0.8); Monocytes Percent Auto 9.6 % (1.7-12.0); Neutrophils Absolute Auto 3.6 10^3/uL (1.4-6.5); Neutrophils Percent Auto 57.4 % (43.0-75.0); Platelet Count 293 10^3/uL (150-450); Red Blood Count 4.89 10^6/uL (4.20-5.40); Red Cell Distribution Width 12.8 % (11.0-15.0); White Blood Count 6.3 10^3/uL (4.0-11.0)
[2024-06-20 08:45] LABS: Alanine Aminotransferase 27 U/L (14-59); Albumin Globulin Ratio 1.1; Albumin Level 3.8 g/dL (3.4-5.0); Alkaline Phosphatase 51 U/L (46-116); Anion Gap 12.7; Aspartate Amino Transferase 19 U/L (15-37); BUN Creatinine Ratio 13.2; Calcium 9.2 mg/dL (8.5-10.1); Carbon Dioxide 26.6 mmol/L (21.0-32.0); Chloride 105 mmol/L (98-107); Chol HDL Ratio 2.9; Cholesterol 163 mg/dL (<=200); Estimated GFR (African America 59 (>=60 mL/min/1.73m^2); Estimated GFR (Non-African Ame 49 (>=60 mL/min/1.73m^2); Free T3 2.41 pg/mL (2.18-3.98); Globulin 3.6 g/dL; Glucose 92 mg/dL (74-106); HDL Cholesterol 56 mg/dL (40-60); Potassium 4.3 mmol/L (3.5-5.1); Sodium 140 mmol/L (136-145); Thyroid Stimulating Hormone 2.069 uIU/mL (0.358-3.740); Total Protein 7.4 g/dL (6.4-8.2); Triglycerides 70 mg/dL (<=150)
[2024-06-20 16:28] LABS: Estimated Average Glucose 114 mg/dL; Glycohemoglobin A1C 5.6 % (4.5-6.2)
[2024-06-21 12:07] LABS: Insulin 11.9 uIU/mL (2.6-24.9)
== END 2024-06-20 07:12 | disposition home or self-care (01) ==
LOC: LAB 07:14
PROVIDERS: PCP Family Medicine; Visit Provider Family Medicine
DX: Z00.00 Encounter for general adult medical examination without abnormal findings (principal)
CPT/HCPCS: 36415; 80053; 80061; 83036; 83525; 84436; 84443; 84481; 85025

== ENCOUNTER 2024-10-26 12:06 | Outpatient (REF) | payer BC, SELFPAY ==
--- OUTSIDE RECORDS SUMMARY | 2024-10-26 08:30 | XMS_ITS | Encounter Summary ---
Author Organization [facility] Address [address] [place] [address] Care Team Providers Care Crib Pad Maker Name Role Phone Jose Manuel Still MD Primary Care Provider [phone] Reason for Visit * Reason Comments Well Women Visit Encounter Details Date Type Department Care Team (Late st Contact Info) Description 10/26/2024 8:30 AM EDT Office Visit [facility] [address] [place] [phone] Pasquale Wetzel, [address] [place] [address] Well woman exam with routine gynecological exam; Encounter for screening mammogram for malignant neoplasm of breast; Breast lump on left side at 2 o'clock position Social History Tobacco Use Types Packs/Day Years Used Date Smoking Tobacco: Some Days Cigarettes 0.5 25.7 Started: 02/07/1999 Tobacco Cessation:Ready to Q uit: Not Asked; Counseling Given: Not Answered Alcohol Use Standard Drinks/Week Comments Not Currently 0 (1 standard drink = 0.6 oz pur e alcohol) Comments No Sex and Gender Information Value Date Recorded Sex Assigned at Not on file Legal Sex Female 6:59 PM EDT Gender Identity Not on file Sexual Orientation Not on file documented as of this encounter Last Filed Vital Signs Vital Sign Reading Time Taken Comments Blood Pressure 128/92 10/26/2024 8:45 AM EDT Pulse - - Temperature - - Respiratory Rate - - Oxygen Saturation - - Inhaled Oxygen Concentration - - Weight 71.4 kg (157 lb 8 oz) 10/26/2024 8:45 AM EDT Height - - Body Mass Index 27.9 04/17/2022 12:00 PM EST documented in this encounter Progress Notes * Irasema Pepper, STREET CAR MECHANIC - 10/26/2024 8:30 AM EDT Reason for Appointment: Patient ID: Kathryn Weems is a 44 y.o. female who presents for Well Women Visit Patient presents today for Annual Exam. MEDICATIONS Current Outpatient Medications Medication Instructions metoprolol succinate XL (TOPROL-XL) 100 mg, Oral, Daily, Do not crush or chew. simvastatin (ZOCOR) 20 mg, Oral, Nightly ALLERGIES No Known Allergies PROBLEMS Active Ambulatory Problems Diagnosis Date Noted No Active Ambulatory Problems Resolved Ambulatory Problems Diagnosis Date Noted No Resolved Ambulatory Problems Past Medical History: Diagnosis Date Endometriosis 2009 Hypertension 2007 Ovarian cyst 2012 HISTORY PAST MEDICAL HISTORY SOCIAL HISTORY Past Medical History: Diagnosis Date Endometriosis 2009 Hypertension 2007 Ovarian cyst 2012 Social History Tobacco Use Smoking status: Some Days Current packs/day: 0.50 Average packs/day: 0.5 packs/day for 25.7 years (12.9 ttl pk-yrs) Types: Cigarettes Start date: 02/07/1999 Smokeless tobacco: Not on file Substance Use Topics Alcohol use: Not Currently Drug use: Never FAMILY HISTORY No family history on file. SURGICAL HISTORY Past Surgical History: Procedure Laterality Date SECTION, LOW TRANSVERSE 2004 ENDOMETRIAL ABLATION 2019 HYSTERECTOMY 2020 REVIEW OF SYSTEMS Review of Systems: Review of Systems Constitutional: Negative. HENT: Negative. Eyes: Negative. Respiratory: Negative. Cardiovascular: Negative. Gastrointestinal: Negative. Genitourinary: Negative. Musculoskeletal: Negative. Skin: Negative. Neurological: Negative. All other systems reviewed and are negative. Hematological: Negative. Endocrine: Negative. Allergic/Immunologic: Negative. OBJECTIVE Objective: Physical Exam Constitutional: Appearance: Normal appearance. She is well-developed. Genitourinary: Vulva normal. Vaginal cuff intact. Cervix is absent. Uterus is absent. Cardiovascular: Rate and Rhythm: Normal rate and regular rhythm. Abdominal: General: Bowel sounds are normal. There is no distension. Palpations: Abdomen is soft. Tenderness: There is no abdominal tenderness. There is no guarding or rebound. Musculoskeletal: General: No swelling. Normal range of motion. Right lower leg: No edema. Left lower leg: No edema. Neurological: Mental Status: She is alert and oriented to person, place, and time. Skin: General: Skin is warm and dry. Psychiatric: Mood and Affect: Mood normal. Behavior: Behavior normal. Vitals and nursing note reviewed. Exam conducted with a supervisor gear repair present. Vitals: Estimated body mass index is 27.9 kg/m?? as calculated from the following: Height as of 04/17/22: 5' 3 . Weight as of this encounter: 157 lb 8 oz. BP: (!) 128/92 No LMP recorded (lmp unknown). Patient has had a hysterectomy. ASSESSMENT & PLAN ICD-10-CM 1. Well woman exam with routine gynecological exam Z01.419 THIN PREP TIS PAP AND HR HPV DNA 2. Encounter for screening mammogram for malignant neoplasm of breast Z12.31 Bilateral screening mammogram Bilateral screening mammogram Orders Placed This Encounter Procedures Bilateral screening mammogram Annual Wellness Exam (Post Hysterectomy): Patient presents today for routine annual exam. Patient states she has no current complaints. Patients vitals were reviewed and within normal limits. Growth and development is noted to be appropriate for age. Menstrual history is noted to be obsolete due to patients history of hysterectomy. No mental health concerns was expressed. Pap Smear: Speculum was inserted into the vagina and pap was obtained without difficulty. HPV testing was performed per guidelines. Patient was advised that pap results could take anywhere from 7 to 10 days to receive and our office will reach out to the patient with those once we have them. Patient can also view results via [employer]. I reinforced importance of condom use for STI prevention. Patient declined cultures to be performed with today's visit. Breast Exam: Upon examination, clinical breast exam was noted to be breast lump 6cm from nipple, 1cm in size on left breast at 2 oclock position, pt given dx mammogram. Patient was counseled on breast self-awareness, including the importance of knowing what is normal for her own breasts and promptly reporting any changes such as new lumps, skin dimpling, nipple discharge, or pain. Screening mammogram recommended annually beginning at age 40 or earlier if risk factors are present. Discussed signs and symptoms of breast cancer and when to seek medical attention. Answered all patient questions. Follow Up: Patient is to return to our office in one year for annual exam unless needed otherwise. Documented by Irasema Pepper LPN on behalf of: Pasquale Wetzel DO documented in this encounter Plan of Treatment Upcoming Encounters Date Type Department Care Team (Late st Contact Info) Description 11/01/2025 8:30 AM EDT Office Visit [facility] [address] [place] [phone] Pasquale Wetzel, [address] [place] [address] Scheduled Orders Name Type Priority Associated Diagnoses Orde r Schedule THIN PREP TIS PAP AND HR HPV DNA Pathology and Cytology Routine Well woman exam with routine gynecological exam Ordered: 10/26/2024 Bilateral diagnostic mammogram Imaging Routine Breast lump on left side at 2 o'clock position Expected: 10/26/2024 (Approximate), Expires: 12/26/2025 documented as of this encounter Visit Diagnoses Diagnosis Well woman exam with routine gynecological exam Routine gynecological examination Encounter for screening mammogram for malignant neoplasm of breast Breast lump on left side at 2 o'clock position Lump or mass in breast documented in this encounter Care Teams Crib Pad Maker Relationship Specialty Start Date End Date Jose Manuel Still MD [address] [facility] [place] [address] PCP - General Family Medicine 10/24/23 documented as of this encounter
--- OUTSIDE RECORDS SUMMARY | 2024-10-26 12:09 | XMS_ITS | Encounter Summary ---
Author Organization [facility] Address [address] [place] [address] Care Team Providers Care Prepress Stripper Name Role Phone Jose Manuel Still MD Primary Care Provider [phone] Encounter Details Date Type Department Care Team (Latest Contact Info) Description 10/26/2024 Travel Social History Tobacco Use Types Packs/Day Years Used Date Smoking Tobacco: Some Days Cigarettes 0.5 25.7 Started: 02/07/1999 Alcohol Use Standard Drinks/Week Comments Not Currently 0 (1 standard drink = 0.6 oz pur e alcohol) Comments No Sex and Gender Information Value Date Recorded Sex Assigned at Not on file Legal Sex Female 6:59 PM EDT Gender Identity Not on file Sexual Orientation Not on file documented as of this encounter Plan of Treatment Upcoming Encounters Date Type Department Care Team (Late st Contact Info) Description 11/01/2025 8:30 AM EDT Office Visit [facility] [address] [place] [phone] Pasquale Wetzel, DO [address] [place] [address] documented as of this encounter Visit Diagnoses Not on filedocumented in this encounter Care Teams Prepress Stripper Relationship Specialty Start Date End Date Jose Manuel Still MD [address] [facility] [place] [address] PCP - General Family Medicine 10/24/23 documented as of this encounter
--- OUTSIDE RECORDS SUMMARY | 2024-10-26 12:09 | XMS_ITS | Clinical Summary ---
Author Organization [facility] [employer] Address [id number] [address] [place] [address] Care Team Providers Care Western Philosophy Professor Name Role Phone Unavailable Primary Care Provider Unavailabl e Social History Tobacco Use Types Packs/Day Years Used Date Smoking Tobacco: Never Assessed Childcare Answer Date Recorded Childcare Unknown 10/08/2018 Employment Answer Date Recorded Employment Unknown 10/08/2018 Purpose - Life Answer Date Recorded Purpose and direction in life Unknown Comments Unknown Sex and Gender Information Value Date Recorded Sex Assigned at Not on file Legal Sex Female 11:25 AM EDT Gender Identity Not on file Sexual Orientation Not on file Plan of Treatment Health Maintenance Due Date Last Done Comments Depression Screening 1993 Tobacco Screening 1993 Adult BMI Screening 1999 DTaP,Tdap and Td Vaccines (1 - Tdap) 01/22/2000 Pap Smear 2002 Influenza Vaccine 12/28/2024 Medical Devices Not on file
--- OUTSIDE RECORDS SUMMARY | 2024-10-26 12:09 | XMS_ITS | Encounter Summary ---
Author Organization [facility] Address [address] [facility] [place] [address] Care Team Providers Care Table Filler Name Role Phone Jose Manuel Still MD Primary Care Provider [phone] Encounter Details Date Type Department Care Team ([facility] Contact Info) Description 10/26/2024 Bamboo flowsheet [facility] [address] [facility] [place] [phone] Pasquale Wetzel DO [address] [place] [address] Rosalina [place]endaño, [facility] Social History Tobacco Use Types Packs/Day Years [...] Encounters Date Type Department Care Team (Late Contact Info) Description 11/01/2025 8:30 AM EDT Office Visit [facility] [address] [facility] [place] [address] Pasquale Wetzel DO [facility] [address] [place], [place] [id number] documented as of this encounter Visit Diagnoses Not on filedocumented in this encounter Care Teams Table Filler Relationship Specialty Start Date End Date Jose Manuel Still MD [address] [place] [address] PCP - General Family Medicine 10/24/23 documented as of this encounter
--- OUTSIDE RECORDS SUMMARY | 2024-10-26 12:24 | XMS_ITS | CCD ---
Author Organization [facility] Care Team Providers Care Permaculture Contractor Name Role Phone TARYN, GEORGE Unavailable Unavailable TARYN, GEORGE Unavailable Unavailable HOY, SEN Unavailable Unavailable Maximiliano Cason Unavailable Unavailable TARYN, GEORGE Unavailable Unavailable TARYN, GEORGE Unavailable Unavailable HOY, SEN Unavailable Unavailable TARYN, GEORGE Unavailable Unavailable TARYN, GEORGE Unavailable Unavailable HOY, SEN Unavailable Unavailable Gorty, Abiodun S Unavailable Unavailable TARYN, GEORGE Unavailable Unavailable TARYN, GEORGE Unavailable Unavailable HOY, SEN Unavailable Unavailable MALLORIE ., DR CHATTERJEE Attending Unavailable HOY ., DR CHATTERJEE Consulting Unavailable HOY ., DR CHATTERJEE Primary Care Unavailable HOY ., DR CHATTERJEE Admitting Unavailable HOY ., DR CHATTERJEE Attending Unavailable HOY ., DR CHATTERJEE Consulting Unavailable HOY ., DR CHATTERJEE Primary Care Unavailable HOY ., DR CHATTERJEE Admitting Unavailable [place], DR MAXIMILIANO Martin Consulting Unavailable HOY ., DR CHATTERJEE Primary Care Unavailable DAMARI ., DR COOPER Attending Unavailable DAMARI ., DR COOPER Consulting Unavailable DAMARI ., DR COOPER Admitting Unavailable ALLISON WETZEL Attending Unavailable MD Sen Still Primary Care Provider [phone] MD Juan Manuel Keith Jr Emergency Provider Sen Still Primary Care Unavailable Juan Manuel Keith Jr Attending Unavailable Juan Manuel Keith Jr Admitting Unavailable Sen Still MD Primary Care Provider [phone] Allergies Allergy Classification Reported Allergen(s) Allergy Type Date of Onset Reaction(s) Facility (1 source) No Known Medication Allergies; Translations: [No Known Medication Allergies] Propensity to adverse reactions to drug (disorder) [facility] Repository Medications Current Medications Medication Drug Class(es) Dates Sig (Normalized) Sig (Original) ARIPiprazole 10 mg disintegrating oral tablet (3 sources) Atypical Antipsychotic End: 10-26-2024 take 1 tablet by mouth once daily ARIPiprazole (Abilify) 10 MG disintegrating tablet Take 10 mg by mouth Daily 10/26/2024 Discontinued fluconazole 150 mg oral tablet (1 source) [...] succinate 25 mg extended release oral tablet (4 sources) beta-Adrenergic Kim Start: 02-12-2020 take 25 mg by mouth once daily Metoprolol Succinate Active 25 MG PO Daily February 12, 2020 12:00am take 1 tablet by mouth once quan y metoprolol succinate XL (Toprol-XL) 100 MG 24 hr tablet Take 100 mg by mouth Daily Do not crush or chew. Active nitrofurantoin, macrocrystals 25 mg / nitrofurantoin, monohydrate [...] full glass of water with each meal simvastatin 20 mg oral tablet (3 sources) HMG-CoA Reductase Inhibitor take 1 tablet by mouth at bedtime simvastatin (Zocor) 20 MG tablet Take 20 mg by mouth at bedtime Active Problems Active Problems Problem Classification Problem Date Documented Da te Episodic/Chronic Genitourinary symptoms and ill-defined conditions (1 source) Frequency of micturition; Translations: [Frequency of micturition] Onset: 01-17-2024 Episodic Mycoses (1 source) Candidiasis of vagina; Translations: [Candidiasis of vagina] 01-17-2024 Episodic Nonmalignant breast conditions (2 sources) Breast lump; Translations: [Unspecified lump in the left breast, upper outer quadrant] 10-26-2024 Episodic Nonspecific chest pain (1 source) Atypical chest pain; Translations: [Other chest pain] 04-10-2023 Episodic Other screening for suspected conditions (not mental disorders or infectious disease) (7 sources) Encounter for screening mammogram for malignant [...] Auto Ql (U) Rare [HPF] None Seen [facility] Bilirubin Test strip Ql (U)O rdered By: Juan Manuel Keith on 01-17-2024 Bilirubin Ql (U) Negative Negative [facility] Color of Urine by AutoOrdere d By: Juan Manuel Keith on 01-17-2024 Color (U) Yellow Normal Yellow [facility] Comment on above: Order Comment: Name Collection Type:: Clean-Voided Midstream Performed By: #### U HCG, ADDONUAPLUS, CUU #### [place] [address] [place] Dipstick and Microscopicon 0 01-17-2024 Bacteria,Urine Rare Normal None Seen [facility] Comment on above: Order Comment: Name Collection Type:: Clean-Voided Midstream Performed By: #### U HCG, ADDONUAPLUS, CUU #### [address] Bilirubin,Urine Negative Normal Negative [facility] Comment on above: Order Comment: Name Collection Type:: Clean-Voided Midstream Performed By: #### U HCG, ADDONUAPLUS, CUU #### [address] Glucose Ql (U) Normal Normal Normal [facility] Comment on above: Order Comment: Name Collection Type:: Clean-Voided Midstream Performed By: #### U HCG, ADDONUAPLUS, CUU #### [address] Hyaline Casts,Urine None Normal 0-8 [facility] Comment on above: Order Comment: Name Collection Type:: Clean-Voided Midstream Performed By: #### U HCG, ADDONUAPLUS, CUU #### [place] [address] [place] Mucus,Urine 1+ Critically abnormal [facility] Comment on above: Order Comment: Name Collection Type:: Clean-Voided Midstream Performed By: #### U HCG, ADDONUAPLUS, CUU #### [place] [address] [place] Nitrite,Urine Negative Normal Negative [facility] Comment on above: Order Comment: Name Collection Type:: Clean-Voided Midstream Performed By: #### U HCG, ADDONUAPLUS, CUU #### [address] Occult Blood,Urine Trace High Negative [facility] Comment on above: Order Comment: Name Collection Type:: Clean-Voided Midstream Performed By: #### U HCG, ADDONUAPLUS, CUU #### [address] RBC,Urine 50-100 High 0-4 [facility] Comment on above: Order Comment: Name Collection Type:: Clean-Voided Midstream Performed By: #### U HCG, ADDONUAPLUS, CUU #### [address] Specificy [place],Urine 1.035 High 1.001-1.030 [facility] Comment on above: Order Comment: Name Collection Type:: Clean-Voided Midstream Performed By: #### U HCG, ADDONUAPLUS, CUU #### [address] Squamous Epithelial Cell,Urine 10-19 High 0-2 [facility] Comment on above: Order Comment: Name Collection Type:: Clean-Voided Midstream Performed By: #### U HCG, ADDONUAPLUS, CUU #### [address] Urobilinogen,Urine Normal Normal Normal [facility] Comment on above: Order Comment: Name Collection Type:: Clean-Voided Midstream Performed By: #### U HCG, ADDONUAPLUS, CUU #### [address] WBC,Urine 20-49 High 0-4 [facility] Comment on above: Order Comment: Name Collection Type:: Clean-Voided Midstream Performed By: #### U HCG, ADDONUAPLUS, CUU #### [address] Epithelial cells.squamous [# /area] in Urine sediment by Automated countOrdered By: Juan Manuel Keith on 01-17-2024 Epithelial cells.squamous Auto (Urine sed) [#/Area] 10-19 [HPF] High 0-2 [facility] Erythrocytes [#/area] in Uri ne sediment by Automated countOrdered By: Juan Manuel Keith on 01-17-2024 RBC Auto (Urine sed) [#/Area] 50-100 [HPF] High 0-4 [facility] Glucose [Mass/volume] in Uri ne by Test stripOrdered By: Juan Manuel Keith on 01-17-2024 Glucose Test strip (U) [Mass/Vol] Normal mg/dL Normal [facility] HCG ( test) IA.rapi d Ql (U)Ordered By: Juan Manuel Keith on 01-17-2024 HCG ( test) Ql (U) Negative [facility] HCG,Urineon 01-17-2024 Beta HCG ( test) Ql (U) Negative Normal [facility] Comment on above: Order Comment: Name Collection Type:: Clean-Voided Midstream Result Comment: PERF ORMED BY: [place] [address] PATHOLOGIST ELECTRICAL SOFTWARE ENGINEER JAZMINE ZAVALA M.D. Performed By: #### U HCG, ADDONUAPLUS, CUU #### [facility] [address] [place] [address] Hemoglobin Test strip Ql (U) Ordered By: Juan Manuel Keith on 01-17-2024 Hemoglobin Ql (U) Trace High Negative [facility] Hyaline casts [#/area] in Ur ine sediment by Automated countOrdered By: Juan Manuel Keith on 01-17-2024 Hyaline casts Auto (Urine sed) [#/Area] None [LPF] 0-8 [facility] Ketones [Presence] in Urine by Test stripOrdered By: Juan Manuel Keith on 01-17-2024 Ketones Ql (U) Negative Normal Negative [facility] Comment on above: Order Comment: Name Collection Type:: Clean-Voided Midstream Performed By: #### U HCG, ADDONUAPLUS, CUU #### [facility] [address] [place] [address] [place] Leukocyte esterase [Presence ] in Urine by Test stripOrdered By: Juan Manuel Keith on 01-17-2024 Leukocyte esterase Test strip Ql (U) 4+ High Negative [facility] Comment on above: Order Comment: Name Collection Type:: Clean-Voided Midstream Performed By: #### U HCG, ADDONUAPLUS, CUU #### [facility] [address] [place] [address] [place] Leukocytes [#/area] in Urine sediment by Automated countOrdered By: Juan Manuel Keith on 01-17-2024 WBC Auto (Urine sed) [#/Area] 20-49 [HPF] High 0-4 [facility] Mucus [Presence] in Urine by AutomatedOrdered By: Juan Manuel Keith on 01-17-2024 Mucus Auto Ql (U) 1+ [LPF] Abnormal [facility] Nitrite Test strip Ql (U)Ord ered By: Juan Manuel Keith on 01-17-2024 Nitrite Ql (U) Negative Negative [facility] Protein [Mass/volume] in Uri ne by Test stripOrdered By: Juan Manuel Keith on 01-17-2024 Protein (U) [Mass/Vol] 20 mg/dL High Negative [facility] Comment on above: Order Comment: Name Collection Type:: Clean-Voided Midstream Performed By: #### U HCG, ADDONUAPLUS, CUU #### [facility] [address] [place] [address] Specific gravity Test strip (U) [Rel density]Ordered By: Juan Manuel Keith on 01-17-2024 Specific gravity (U) [Rel density] 1.035 High 1.001-1.030 [facility] Urine Cultureon 01-17-2024 Bacteria identified Cx Nom (U) ORGANISM: Streptococcus anginosus (O:ISMA) [place] Count 75,000 Organism Comments Organism not Routinely Tested for Susceptibilities PERFORMED BY: [place] [address] PATHOLOGIST ELECTRICAL SOFTWARE ENGINEER JAZMINE ZAVALA M.D. Normal [facility] Comment on above: Performed By: #### U HCG, ADDONUAPLUS, CUU #### [facility] [address] [place] [address] Urine appearanceOrdered By: Juan Manuel Keith on 01-17-2024 Appearance (U) Cloudy Critically abnormal Clear [facility] Comment on above: Order Comment: Name Collection Type:: Clean-Voided Midstream Performed By: #### U HCG, ADDONUAPLUS, CUU #### [facility] [address] [place] [address] Urobilinogen Test strip (U) [Mass/Vol]Ordered By: Juan Manuel Keith on 01-17-2024 Urobilinogen (U) [Mass/Vol] Normal mg/dL Normal [facility] pH of Urine by Test stripOrd ered By: Juan Manuel Keith on 01-17-2024 pH (U) 6.0 [pH] Normal 5.0-9.0 [facility] Comment on above: Order Comment: Name Collection Type:: Clean-Voided Midstream Performed By: #### U HCG, ADDONUAPLUS, CUU #### [facility] [address] Covid-19 PCR (CVDTB)on SARS-CoV-2 (COVID-19) RNA JOHNNIE+probe Ql (Unsp spec) Not detected Normal NOT DETECTED [facility] Comment on above: Result Comment: This test is not yet approved or cleared by the [place] FDA. When there are no FDA-approved or cleared tests available, and other criteria are met, FDA can make tests available under an emergency access mechanism called an Emergency Use Authorization (EUA). The EUA for this test is supported by the Tax Advisor of Health and Human Service's (HHS's) declaration [...] SARS-CoV-2. Performed By: #### C VDTBH #### [facility] [address] [address] [address] Eb Sol INSULINon 07-03-2022 Insulin 25.2 uIU/mL Critically high 2.6-24.9 [facility] Comment on above: Performed By: #### I NSULIN #### [facility] [address] [address] [address] Eb Sol CBC AUTO DIFFon 07-02-2022 BASO # 0.1 103/ul Normal 0.0-0.1 [facility] Comment on above: Performed By: #### C BC #### [facility] [address] [place] [address] Dr. Eb Sol Basophils/100 WBC (Bld) 1.2 % Normal 0.2-2.0 [facility] Comment on above: Performed By: #### C BC #### [facility] [address] [place] [address] Dr. Eb Sol EO # 0.2 103/ul Normal 0.0-0.7 [facility] Comment on above: Performed By: #### C BC #### [facility] [address] [place] [address] Dr. Eb Sol Eosinophils/100 WBC (Bld) 3.0 % Normal 0.9-7.0 [facility] Comment on above: Performed By: #### C BC #### [facility] [address] [place] [address] Dr. Eb Sol Erythrocyte distribution width (RBC) [Ratio] 12.8 % Normal 11.0-15.0 [facility] Comment on above: Performed By: #### C BC #### [facility] [address] [place] [address] Dr. Eb Sol Hematocrit (Bld) [Volume fraction] 39.7 % Normal 36.0-48.0 [facility] Comment on above: Performed By: #### C BC #### [facility] [address] [place] [address] Dr. Eb Sol Hemoglobin (Bld) [Mass/Vol] 13.8 g/dL Normal 12.0-16.0 [facility] Comment on above: Performed By: #### C BC #### [facility] [address] [place] [address] Dr. Eb Sol IG # 0.04 10e3/ul Critically high 0.00-0.03 [facility] Comment on above: Performed By: #### C BC #### [facility] [address] [place] [address] Dr. Eb Sol IG % 0.6 % Critically high 0.0-0.5 [facility] Comment on above: Performed By: #### C BC #### [facility] [address] [place] [address] Dr. Eb Sol LYMPH # 1.7 103/ul Normal 1.2-3.8 [facility] Comment on above: Performed By: #### C BC #### [facility] [address] [place] [address] Dr. Eb Sol Lymphocytes/100 WBC (Bld) 26.2 % Normal 20.5-60.0 [facility] Comment on above: Performed By: #### C BC #### [facility] [address] [place] [address] Dr. Eb Sol MANUAL DIFF REQ NO Normal [facility] Comment on above: Performed By: #### C BC #### [facility] [address] [place] [address] Dr. Eb Sol MCH (RBC) [Entitic mass] 29.3 pg Normal 26.7-34.0 [facility] Comment on above: Performed By: #### C BC #### [facility] [address] [place] [address] Dr. Eb Sol MCHC (RBC) [Mass/Vol] 34.8 g/dL Normal 29.9-35.2 [facility] Comment on above: Performed By: #### C BC #### [facility] [address] [place] [address] Dr. Eb Sol MCV (RBC) [Entitic vol] 84.3 fL Normal 81.0-99.0 [facility] Comment on above: Performed By: #### C BC #### [facility] [address] [place] [address] Dr. Eb Slo MONO # 0.6 103/ul Normal 0.3-0.8 [facility] Comment on above: Performed By: #### C BC #### [facility] [address] [place] [address] Dr. Eb Sol Monocytes/100 WBC (Bld) 9.1 % Normal 1.7-12.0 [facility] Comment on above: Performed By: #### C BC #### [facility] [address] [place] [address] Dr. Eb Sol NEUT # 3.9 103/ul Normal 1.4-6.5 [facility] Comment on above: Performed By: #### C BC #### [facility] [address] [place] [address] Dr. Eb Sol Neutrophils/100 WBC (Bld) 59.9 % Normal 43.0-75.0 [facility] Comment on above: Performed By: #### C BC #### [facility] [address] [place] [address] Dr. Eb Sol Platelet mean volume (Bld) [Entitic vol] 10.4 fL Normal 9.5-13.5 [facility] Comment on above: Performed By: #### C BC #### [facility] [address] [place] [address] Dr. Eb Sol PLT 312 103/ul Normal 150-450 [facility] Comment on above: Performed By: #### C BC #### [facility] [address] [place] [address] Dr. Eb Sol RBC 4.71 106/ul Normal 4.20-5.40 [facility] Comment on above: Performed By: #### C BC #### [facility] [address] [place] [address] Dr. Eb Sol WBC 6.6 103/ul Normal 4.0-11.0 [facility] Comment on above: Performed By: #### C BC #### [facility] [address] [place] [address] Dr. Eb Sol FREE THYROXINE INDEX T7on FTI 2.18 Normal 1.30-4.50 [facility] Comment on above: Performed By: #### L IPID, CMP, T7, TSH #### [facility] [address] [place] [address] Dr. Eb Sol T3U 32.0 % Normal 30.0-39.0 [facility] Comment on above: Performed By: #### L IPID, CMP, T7, TSH #### [facility] [address] [address] [address] Eb Sol T4 [Mass/Vol] 6.80 ug/dL Normal 4.80-13.90 [facility] Comment on above: Performed By: #### L IPID, CMP, T7, TSH #### [facility] [address] [address] [address] Eb Sol GLYCOHEMOGLOBIN A1Con 2022 ADA RECOMMENDATION SEE BELOW Normal [facility] Comment on above: Result Comment: ADA RECOMMENDED LIMIT 4.0 - 6.0 ADA THERAPEUTIC TARGET < 7.0 ACTION SUGGESTED > 7.0 Performed By: #### A 1C ####[facility] [id number] [address]Dr. Eb Sol Glucose [Mass/Vol] 117 mg/dL Normal [facility] Comment on above: Performed By: #### A 1C ####[facility] [id number] [address]Dr. Eb Sol HbA1c (Bld) [Mass fraction] 5.7 % Normal 4.5-6.2 [facility] Comment on above: Performed By: #### A 1C ####[facility] [id number] [address]Dr. Eb Sol IRONon 07-02-2022 Iron [Mass/Vol] 97.0 ug/dL Normal 50.0-170.0 [facility] Comment on above: Performed By: #### I GOOD #### [facility] [address] [address] [address] Eb Sol LIPID PROFILEon 07-02-2022 CHOL-HDL RATIO NORM SEE BELOW Normal [facility] Comment on above: Result Comment: 3.3 - 4.4 LOW RISK 4.4 - 7.1 AVERAGE RISK 7.1 - 11.0 MODERATE RISK >11.0 HIGH RISK Performed By: #### L IPID, CMP, T7, TSH #### [facility] [address] [address] [address] Eb Sol Cholesterol [Mass/Vol] 247 mg/dL Critically high <=200 [facility] Comment on above: Performed By: #### L IPID, CMP, T7, TSH #### [facility] [address] [address] [address] Eb Sol Cholesterol in HDL [Mass/Vol] 50 mg/dL Normal 40-60 [facility] Comment on above: Performed By: #### L IPID, CMP, T7, TSH #### [facility] [address] [address] [address] Eb Sol Cholesterol in LDL [Mass/Vol] 153.0 mg/dL Normal [facility] Comment on above: Performed By: #### L IPID, CMP, T7, TSH #### [facility] [address] [address] [address] Eb Sol Cholesterol.total/C holesterol in HDL [Mass ratio] 4.9 {ratio} Normal [facility] Comment on above: Performed By: #### L IPID, CMP, T7, TSH #### [facility] [address] [address] [address] Eb Sol HDL NORMAL > or = 60 mg/dl - LO W CARDIOVASCULAR RISK <40 mg/dl - HIGH CARDIOVASCULAR RISK Normal [facility] Comment on above: Performed By: #### L IPID, CMP, T7, TSH #### [facility] [address] [address] [address] Eb Sol LDL CALC NORMAL SEE BELOW Normal [facility] Comment on above: Result Comment: <100 mg/dl OPTIMAL 100 - 129 mg/dl NEAR OR ABOVE OPTIMAL 130 - 159 mg/dl BORDERLINE HIGH 160 - 189 mg/dl HIGH >190 mg/dl VERY HIGH Performed By: #### L IPID, CMP, T7, TSH #### [facility] [address] [address] [address] Eb Sol Triglyceride [Mass/Vol] 220 mg/dL Critically high <=150 [facility] Comment on above: Performed By: #### L IPID, CMP, T7, TSH #### [facility] [address] [address] [address] Eb Sol VLDL CALC 44.0 mg/dL Normal [facility] Comment on above: Performed By: #### L IPID, CMP, T7, TSH #### [facility] [address] [place], [place] [address] Dr. Eb Sol MG MAMM SCREEN 3D MYRA CADon 07-02-2022 MG MAMM SCREEN 3D MYRA CAD Patient: KATHRYN CARTY Exam Date: 07/02/2022 : 1980 Gender:F Ordering : DR SEN STILL . Admission #: [id number] Family : Order #: [id number] CLICK HERE TO VIEW EXAM RADIOLOGY REPORT PROCEDURE: MAMMOGRAM SCREENING 3D BILATERAL CAD COMPARISON: None. INDICATIONS: Screening mammography Calculator Name NCI Breast Cancer Risk Assessment Tool 5 Year Breast Cancer Risk 0.60% Lifetime Breast Cancer Risk 9.80% Personal Breast Cancer No Personal Ovarian Cancer No Treatments None Family Cancers None LOCATION: [facility] BREAST COMPOSITION: Extremely dense, which lowers [...] Nassar MD on 07/02/2022 at 08:41 Normal [facility] PROF 14(COMP METB)on 023 Albumin [Mass/Vol] 3.9 g/dL Normal 3.4-5.0 [facility] Comment on above: Performed By: #### L IPID, CMP, T7, TSH #### [facility] [address] [place], [place] [address] Dr. Eb Sol Albumin/Globulin [Mass ratio] 1.1 {ratio} Normal [facility] Comment on above: Performed By: #### L IPID, CMP, T7, TSH #### [facility] [address] [place], [place] [address] Dr. Eb Sol ALP [Catalytic activity/Vol] 65 U/L Normal 46-116 [facility] Comment on above: Performed By: #### L IPID, CMP, T7, TSH #### [facility] [address] [place] [address] Dr. Eb Sol ALT [Catalytic activity/Vol] 33 U/L Normal 14-59 [facility] Comment on above: Performed By: #### L IPID, CMP, T7, TSH #### [facility] [address] [place] [address] Dr. Eb Sol Anion gap [Moles/Vol] 16.4 mmol/L Normal [facility] Comment on above: Performed By: #### L IPID, CMP, T7, TSH #### [facility] [address] [place] [address] Dr. Eb Sol AST [Catalytic activity/Vol] 21 U/L Normal 15-37 [facility] Comment on above: Performed By: #### L IPID, CMP, T7, TSH #### [facility] [address] [place] [address] Dr. Eb Sol Bilirubin [Mass/Vol] 0.4 mg/dL Normal 0.2-1.0 [facility] Comment on above: Performed By: #### L IPID, CMP, T7, TSH #### [facility] [address] [place] [address] Dr. Eb Sol Calcium [Mass/Vol] 9.2 mg/dL Normal 8.5-10.1 [facility] Comment on above: Performed By: #### L IPID, CMP, T7, TSH #### [facility] [address] [place] [address] Dr. Eb Sol Chloride [Moles/Vol] 104 mmol/L Normal 98-107 [facility] Comment on above: Performed By: #### L IPID, CMP, T7, TSH #### [facility] [address] [place] [address] Dr. Eb Sol CO2 [Moles/Vol] 23.8 mmol/L Normal 21.0-32.0 [facility] Comment on above: Performed By: #### L IPID, CMP, T7, TSH #### [facility] [address] [address] [address] Eb Sol Creatinine [Mass/Vol] 0.97 mg/dL Normal 0.55-1.02 [facility] Comment on above: Performed By: #### L IPID, CMP, T7, TSH #### [facility] [address] [address] [address] Eb Sol EGFR-AF CAMBODIAN >60 Normal >=60 [facility] Comment on above: Performed By: #### L IPID, CMP, T7, TSH #### [facility] [address] [address] [address] Eb Sol EGFR-NON AF CAMBODIAN >60 Normal >=60 [facility] Comment on above: Performed By: #### L IPID, CMP, T7, TSH #### [facility] [address] [address] [address] Eb Sol Globulin (S) [Mass/Vol] 3.6 g/dL Normal [facility] Comment on above: Performed By: #### L IPID, CMP, T7, TSH #### [facility] [address] [address] [address] Eb Sol Glucose [Mass/Vol] 119 mg/dL Critically high 74-106 [facility] [place] [facility] Comment on above: Performed By: #### L IPID, CMP, T7, TSH #### [facility] [address] [address] [address] Eb Sol Potassium [Moles/Vol] 4.2 mmol/L Normal 3.5-5.1 [facility] Comment on above: Performed By: #### L IPID, CMP, T7, TSH #### [facility] [address] [address] [address] Eb Sol Protein [Mass/Vol] 7.5 g/dL Normal 6.4-8.2 [facility] Comment on above: Performed By: #### L IPID, CMP, T7, TSH #### [facility] [address] [address] [address] Eb Sol Sodium [Moles/Vol] 140 mmol/L Normal 136-145 [facility] Comment on above: Performed By: #### L IPID, CMP, T7, TSH #### [facility] [address] [place] [address] Dr. Eb Sol Urea nitrogen [Mass/Vol] 16.0 mg/dL Normal 7.0-18.0 [facility] Comment on above: Performed By: #### L IPID, CMP, T7, TSH #### [facility] [address] [place] [address] Dr. Eb Sol Urea nitrogen/Creatinine [Mass ratio] 16.5 mg/mg Normal [facility] Comment on above: Performed By: #### L IPID, CMP, T7, TSH #### [facility] [address] [place] [address] Dr. Eb Sol TSHon 07-02-2022 TSH 3.367 uIU/mL Normal 0.358-3.740 [facility] Comment on above: Performed By: #### L IPID, CMP, T7, TSH #### [facility] [address] [place] [address] Dr. Eb Sol PAP ACOG PANEL 2: 30 to 65on 04-29-2022 . . Normal [facility] Comment on above: Result Comment: Perf ormed at: WB Performed By: #### 4 [id number] #### [facility] [address] [place] [address] Dr. Eb Sol Age Gdln ACOG Testing 30-65 Normal [facility] Comment on above: Performed By: #### 4 [id number] #### [facility] [address] [place] [address] Dr. Eb Sol DIAGNOSIS: Comment Normal [facility] Comment on above: Result Comment: NEGA TIVE FOR INTRAEPITHELIAL LESION OR MALIGNANCY. Performed at: WB Performed By: #### 4 [id number] #### [facility] [address] [place] [address] Dr. Eb Sol HPV Aptima Negative Normal Negative [facility] Comment on above: Result Comment: This nucleic acid amplification test detects fourteen high-risk HPV types (16,18,31,33,35,39,45,51,52,56,58,59,66,68) without differentiation. Performed at: =G Performed By: #### 4 [id number] #### [facility] [address] [place] [address] Dr. Eb Sol HPV Genotype Reflex Comment Normal [facility] Comment on above: Result Comment: Crit eria not met, HPV Genotype not performed. Performed at: WB Performed By: #### 4 [id number] #### [facility] [address] [place] [address] Dr. Eb oSl Methodology: Comment Normal [facility] Comment on above: Result Comment: This liquid based ThinPrep(R) pap test was screened with the use of an image guided system. Performed at: WB Performed By: #### 4 [id number] #### [facility] [address] [place] [address] Dr. Eb Sol Note: Comment Normal [facility] Comment on above: Result Comment: The Pap smear is a screening test designed to aid in the detection of premalignant and malignant conditions of the uterine cervix. It is not a diagnostic procedure and should not be used as the sole means of detecting cervical cancer. Both false-positive and false-negative reports do occur. . Performed at: WB Performed By: #### 4 [id number] #### [facility] [address] [place] [address] Dr. Eb Sol Performed by: Comment Normal [facility] Comment on above: Result Comment: Esperanza Parmar, News Content Specialist (ASCP) Performed at: WB Performed By: #### 4 [id number] #### [facility] [address] [place] [address] Dr. Eb Sol Specimen adequacy: Comment Normal [facility] Comment on above: Result Comment: Sati sfactory for evaluation. Endocervical and/or squamous metaplastic cells (endocervical component) are present. Performed at: WB Performed By: #### 4 [id number] #### [facility] [address] [place] [address] Dr. Eb Sol Intraoperative Noteon 2017 Intraoperative Note [id number]#1.00[facility] Intraoperative Noteon 2017 Intraoperative Note [id number]#[address] [place] [address] History and Physicalon 04-19 History and Physical [id number]#[address] [place] [address] Operative Report - Surgeon/P hysicianorula 04-19-2017 Operative Report - Surgeon/Physician [id number]#[address] [place] [address] Provider Orderson 04-19-2017 Provider Orders [id number]#[address] [place] [address] Provider Orders [id number]#[address] [place] [address] Coding Summaryon 03-28-2017 Coding Summary CODING DATE: 017 [facility] STATUS: Home PAYOR: Commercial Insurance APC DESCRIPTION 5361 Level 1 Laparoscopy and Related Services ADMIT DX: REASON FOR VISIT DX: R10.2 Pelvic and perineal pain N83.201 Unspecified ovarian cyst, right side FINAL DX: PRINCIPAL: N83.11 Corpus luteum cyst of right ovary SECONDARY: Z72.0 Tobacco use PYMT PROC APC STAT DESCRIPTION DOCTOR NAME DATE 42860 5361 J1 Laparoscopy, surgical; George Centeno DO 03/19/2017 with removal of adnexal structures (partial or total oophorectomy and/or salpingectomy) NOTE: The code number assigned matches the documented diagnosis and / or procedure in the patient's chart. However, the narrative phrase printed from the coding software may appear abbreviated, or result in slightly different terminology. Coded By: Katelyn Robertson Date Saved: 03/28/2017 07:54 am [facility] Intraoperative Noteon 2016 Intraoperative Note [id number]#[address] Lab - Other Lab Resultson Lab - Other Lab Results [id number]#1.00[facility] Pathology Sendout Teston Pathology Send Out. See Report [facility] Comment on above: Order Comment: RIGHT OVARY AND TUBE Performed By: #### 2 [id number] ####[facility] (DEFAULT)[address] [place] [address] Consent Formson 03-20-2017 Consent Forms [id number]#1.00[facility] Consent Forms [id number]#1.[facility] Telemetry Stripson 7 Telemetry Strips [id number]#1.[facility] Anesthesia Noteon 03-19-2017 Anesthesia Note Patient: KATHRYN CARTY : 37 years Sex: FEMALE : [birth year]Associated Diagnoses: NoneAuthor: Maximiliano Cason DOPostoperative InformationPost Operative Note: Post Anesthesia Care Unit.Review / ManagementCondition: Stable.AssessmentAnesthetic outcomeNo anesthetic complications noted.PlanTransfer/ Discharge: Patient can be discharged from PACU when criteria met.Condition good.[Electronically Signed on: 03/19/2017 10:26 EST] Maximiliano Cason DO[Verified on: 03/19/2017 10:26 EST] Maximiliano Cason DO [facility] Anesthesia Note Patient: KATHRYN CRATY : 37 years Sex: FEMALE : [birth year]Associated Diagnoses: NoneAuthor: CasonMaximiliano DOPreoperative InformationAnesthesia history: Patient history: No difficult intubation, [...] mg oral tablet 1 tab(s), PRN, PO, c8ciSejbgvg list (past medical history):All ProblemsHTN (hypertension) / SNOMED CT 1404240058 / ConfirmedHistoriesFamily History:No family history items have been selected or recorded.Procedure history:Laparoscopy ([id number]) on 01/22/2017 at 37 Years.Carpal tunnel release ([id number]).Comments: 13:22 - Joanne Rollins RNright sideCesarean section ([id number]).Comments:01/16/2017 13:23 - Joanne Rollins RNtimes 1Social History Alcohol Assessment Use: Current. 1-2 times per year Tobacco Assessment Comment: states uses the e-ciggs (throughout the day) Substance Abuse Assessment Substance use: Never..Social & Psychosocial VynsxgNdggvnh23/20/2017 Alcohol Use: Current Frequency: 1-2 times per yearSubstance Abuse01/16/2017 Substance use: NeverTobacco Comment: states uses the e-ciggs (throughout the day) - 01/16/2017 13:26 - Joanne Rollins RN.Physical ExaminationVS/MeasurementsVit al Signs (last 24 hrs) Last ChartedHeart Rate Apical 68 bpm (MAR 19 07:15)Resp Rate 14 br/min (MAR 19:15)SBP 116 mmHg (MAR 19:20)DBP 86 mmHg (MAR 19:20)SpO2 99 % (NOV 21 07:15)General: Alert and oriented, No acute distress.Airway: Mallampati [...] 03/19/2017 08:50 EST] Maximiliano Cason DO Normal [facility] Inpatient Clinical Summaryon 03-19-[address] [facility] SURGERYClinical Discharge SummaryPERSON INFORMATIONName KATHRYN CARTY Age 37 Years [birth year]Sex FEMALE Language Namibian PCP Surekha STILL Status [facility] Service Ambulatory SurgeryN 15-66-86 Acct# Arrival 03/19/17 06:44:53Visit Reason dx laparoscopy Acuity LOS 004 23:46Address:[address] [place], [place] [address]Comment:PROVIDER INFORMATIONVITALS INFORMATIONVital Sign Triage LatestTemp OralTemp Temporal 36.3 DegC 35.9 DegCTemp IntravascularTemp AxillaryTemp Kzbgzf94 Sat 99 % 100 %Respiratory Rate 14 [...] mg Oral every dayDiscontinue These Medications:acetaminophen-hyd rocodone (Hampton 5 mg-325 mg oral tablet) 1 tab(s) [...] ostic Laparoscopy, Care After [facility]Follow up:With: Address: When:George Centeno [address] [place] [address] Business (1) In 2 weeks 04/02/17Comments:Call for follow up appointmentWith: Address: When:SEN STILL [address] [place], [place] [address] Business (1)DIAGNOSIS1:Pelvic pain; 2:Ovarian cyst, rightComment:PHYS DOC NOTES Normal [facility] Inpatient Patient Summaryon 03-19-2017 [place] [address] patient Discharge InstructionsName: KATHRYN CARTYOB: 82 Address: [address] [place] [address] Care Provider:Name: SEN STILLPhone: After you are discharged if you find you have any questions, please, call [phone] ext [phone] to speak to a nurse.Discharge Diagnosis: 1:Pelvic [...] or business decisions or sign any legal documentsGrant Hospital would like to thank you for allowing us to assist you with your healthcare needs. The following includes patient education materials and information regarding your injury/illness.KATHRYN CARTY has been given the following list of follow-up instructions, prescriptions, and patient education materials:Follow-up InstructionsWith: Address: When:George Centeno [address] [place] [address] Business (1) In 2 weeks 04/02/17Comments:Call for follow up appointmentWith: Address: When:SEN STILL [address] [place] [address] Business (1)MedicationsDuring the course of your [...] day.No Longer Take the Following Medicationsacetaminophen-hydr ocodone (Hampton 5 mg-325 mg oral tablet) 1 tab(s) [...] the throat and abdomen.HOME CARE INSTRUCTIONS? Take tqhh-txh-rycdkcj and prescription medicines only as told by [...] and water are not available, use hand vacuum cleaner operator.? Change your dressings (Band Aids) daily after [...] Document Reviewed: 03/26/2016[employer] Patient Education ?2016 [employer].Viruses or BacteriaWhat?s got you sick?Antibiotics only treat [...] Control and Prevention December 2013 [facility] MAGR Intraoperative Recordon 03-19-2017 MAGR Intraoperative Record MAGR Intra-Op Record Summary Primary Physician: George Centeno DO Finalized Date/Time: 03/19/17 13:24:14 Pt. Name: CARLOZ KATHRYNMIGUEL ANGEL Holder/Sex: 1980 FEMALE Med Rec #: [id number] Physician: George Centeno DO Financial #: [id number] Pt. Type: D Room/Bed: / Admit/Disch: 03/19/17 [...] Entry 2 Entry 3 Case Attendee George Centeon DO, David DO Radloff, Leigh-Ann CST Role Performed Surgeon - Primary Anesthesiologist of Data Collector Record Time In 03/19/17 09:04:00 03/19/17 09:04:00 03/19/17 09:04:00 Time Out 03/19/17 10:20:00 03/19/17 10:20:00 03/19/17 10:20:00 Procedure Laparoscopy Diagnostic Laparoscopy Diagnostic Laparoscopy Diagnostic Last Modified By: Valencia Johnson RN, Stephanie RN Sauer, Stephanie RN 03/19/17 13:19:07 03/19/17 13:19:07 03/19/17 13:19:07 Entry 4 Entry 5 Case Attendee Michelle Ackerman BRICK DROPPER Valencia Johnson RN Role Performed Scrub Personnel [employer] Time In 03/19/17 09:04:00 03/19/17 09:04:00 Time [...] Prep Agents (Im.270) Povidone-Iodine, Prep By Valencia Johnosn RN Chlorhexidine Gluconate Prep Area (Im.270) Abdomen, Vagina and Skin Prep Agent Dry Yes perineum Without Pooling Hair Removal Syntegrity Hair Removal Methods Clipper Hair Removal By Magdalena Love CST Hair Removal Site Pubis Outcome Met (O.100) [...] Initial Count Sharps Performed By Michelle Ackerman BRICK DROPPER Initial Count Time 03/19/17 08:48:00 Counts Verification Final Counts Items Included in Sponges, Sharps Final Count Status Correct Final Count Final Counts Valencia Johnson RN, Final Count Time 03/19/17 09:55:00 Performed By Michelle Ackerman BRICK DROPPER Surgeon notified of Yes final counts status [...] Signed By: Valencia Johnson RN 03/19/17 13:24 [facility] PACU Recordon 7 [facility] PACU Record [facility] PACU Record [facility] Primary Physician: George Centeno DO Finalized Date/Time: 03/19/17 11:29:42 Pt. Name: KATHRYN CARTY/Sex: 1980 FEMALE Med Rec #: [id number] Physician: George Centeno DO Financial #: [id number] Pt. Type: D Room/Bed: / Admit/Disch: 03/19/17 [...] By: Linda Bledsoe RN 03/19/17 11:29 [facility] MAGR Postoperative Recordon 03-19-2017 MAGR Postoperative Record [facility] Phase II Record Summary Primary Physician: George Centeno DO Finalized Date/Time: 03/19/17 12:16:03 Pt. Name: KATHRYN CARTY /Sex: 1980 FEMALE Med Rec #: [id number] Physician: George Centeno DO Financial #: [id number] Pt. Type: D Room/Bed: / Admit/Disch: 03/19/17 [...] understanding. Copy of instructions given to pt. 9881 Assisted up to BR to vd qs. IV discont, bleeding controlled. Abd dressings unchanged. Sm. vag bleeding noted on peripad. Pt cont to deny pain. Pt dressing. 1205 Disch per W/C to private car. Finalized By: Giles Nelson RN Document Signatures Signed By: Giles Nelson RN 03/19/17 12:16 [facility] MAGR Preoperative Recordon 1 05-19-2016 MAGR Preoperative Record MAGR Pre-Op Record Summary Primary Physician: George Centeno DO Finalized Date/Time: 03/19/17 11:10:59 Pt. Name: CARLOZ KATHRYNMIGUEL ANGEL KentO.B./Sex: 1980 FEMALE Med Rec #: [id number] Physician: George Centeno DO Financial #: [id number] Pt. Type: D Room/Bed: / Admit/Disch: 03/19/17 [...] Signed By: Giles Nelson RN 03/19/17 11:10 [facility] Operative Report - Surgeon/P pinky 03-19-2017 [...] then grasped with a single toothtenaculum. An [place] uterine manipulator was then advanced into the [...] room, awake and in stablecondition.SHAMIR Paul #: [id number]: 03/19/2017T: 03/19/2017[Electronically Signed on: 03/26/2017 07:50 EST] George Centeno DO, D.O.[Verified on: 03/26/2017 07:50 EST] George Centeno DO, D.O.[Transcribed on: 03/19/2017 13:00 EST][facility] Test Urine 1on U Preg Negative [facility] Comment on above: Result Comment: Call ed Giles W 03/19/2017 09:03:33 EST Performed By: #### 3 [id number] ####[facility] (DEFAULT)[address] [place] [address] U Preg Internal Control Pass [facility] Comment on above: Performed By: #### 3 [id number] ####[facility] (DEFAULT)[address] [id number] Progress Note - Nurseon 02-28 Progress Note - Nurse Preop call completed, patient arriving at 0700 on 03/19/17....preop instructions reviewed[Electronically Signed on: 03/18/2017 13:08 EST] Loren Chaves RN[Verified on: 03/18/2017 13:08 EST] Loren Chaves RN [facility] History and Physicalon 02-11 History and Physical [id number]#1.00[facility] Operative Report - Surgeon/P pinky 02-11-2017 Operative Report - Surgeon/Physician [id number]#1.00[facility] Orderson 02-11-2017 Provider Orders [id number]#1.00[facility] MAGR Preoperative Recordon 1 MAGR Preoperative Record MAGR Pre-Op Record Summary Primary Physician: George Centeno DO Finalized Date/Time: 02/07/17 10:42:56 Pt. Name: KATHRYN CARTY/Sex: 1980 FEMALE Med Rec #: [id number] Physician: George Centeno DO Financial #: [id number] Pt. Type: D Room/Bed: / Admit/Disch: 01/22/17 [...] Signed By: Joanne Rollins RN 02/07/17 10:42 [facility] MAGR Intraoperative Recordon 01-29-2017 MAGR Intraoperative Record MAGR Intra-Op Record Summary Primary Physician: George Centeno DO Finalized Date/Time: 01/29/17 12:54:01 Pt. Name: CARLOZKATHRYN/Sex: 1980 FEMALE Med Rec #: [id number] Physician: George Centeno DO Financial #: [id number] Pt. Type: D Room/Bed: / Admit/Disch: 01/22/17 [...] Performed Surgeon - Primary Anesthesiologist of [employer] Record Time In 01/22/17 07:57:00 01/22/17 07:57:00 01/22/17 07:57:00 Time Out 01/22/17 09:20:00 01/22/17 09:20:00 01/22/17 09:20:00 Procedure Laparoscopy Diagnostic Laparoscopy Diagnostic Laparoscopy Diagnostic Last Modified By: Valencia Johnson RN, Stephanie RN Sauer, Stephanie RN 01/22/17 12:14:56 01/22/17 12:14:56 01/22/17 12:14:56 Entry 4 Entry 5 Entry 6 Case Attendee Valencia Johnson RN, Lauren M CST Nikolaus, Linda M Role Performed [employer] Scrub Personnel Data Collector Time In 01/22/17 07:57:00 01/22/17 07:57:00 01/22/17 [...] in Sponges, Sharps Initial Counts Milagro Isaacs F the Initial Count Performed By Noah COOMBS Lauren M BRICK DROPPER Initial Count Time 01/22/17 07:20:00 Counts Verification Final Counts Items Included in Sponges, Sharps Final Count Status Correct Final Count Final Counts Shital Milagro F Final Count Time 01/22/17 08:56:00 Performed By Noah COOMBS Lauren M BRICK DROPPER Surgeon notified of Yes final counts status [...] 12:25 MHSSAUER Modify Pick List 01/29/17 12:53 MHBSOFIBEST Correct Documentation [facility] Coding Summaryon 01-24-2017 Coding Summary CODING DATE: 017 [facility] STATUS: Home PAYOR: Commercial Insurance APC DESCRIPTION 5361 Level 1 Laparoscopy and Related Services ADMIT DX: REASON FOR VISIT DX: R10.2 Pelvic and perineal pain FINAL DX: PRINCIPAL: N83.201 Unspecified ovarian cyst, right side SECONDARY: 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 Intraoperative Note [id number]#[address] [place] [address] Medication Managementon 12-29 Medication Management [id number]#[address] [place] [address] Telemetry Stripson 7 Telemetry Strips [id number]#1.00[facility] Anesthesia Noteon 01-22-2017 Anesthesia Note Patient: KATHRYN CARTY : 37 years Sex: FEMALE : [birth year]Associated Diagnoses: NoneAuthor: Ventura Lui MDPostoperative InformationPost Operative NoteHealth StatusAllergies:Allergic Reactions (All)No Known Medication AllergiesProblem list (past medical history):All ProblemsHTN (hypertension) / SNOMED CT 9566166777 / ConfirmedPhysical ExaminationVS/MeasurementsVit al Signs (last 24 [...] on: 01/22/2017 09:29 EDT] Ventura Lui MD [facility] Anesthesia Note Patient: KATHRYN CARTY : [...] medical history):All ProblemsHTN (hypertension) / SNOMED CT 0049456485 / ConfirmedHistoriesFamily History:No family history items have been selected or recorded.Procedure history:Carpal tunnel release (771088558).Comments: 13:22 - Joanne Rollins RNright sideCesarean section (09337549).Comments:01/16/2017 13:23 - Joanne Rollins RNtimes 1Social History Alcohol Assessment Use: Current. 1-2 times per year Tobacco Assessment Comment: states uses the e-ciggs (throughout the day) Substance Abuse Assessment Substance use: Never..Social & Psychosocial DtfqikJwqpnjf76/20/2017 Alcohol Use: Current Frequency: 1-2 times per [...] 01/22/2017 07:38 EDT] Ventura Lui MD Normal [facility] BMP Standardon 01-22-2017 eGFR (non-black) mL/min/{1.73_m2} Invalid Interpretation Code [facility] Comment on above: Performed By: #### 1 [id number] ####[facility] (DEFAULT)[address] [place] [address] Result Comment: Conventions Assistant berna Kidney disease could be indicated at eGFRs of less than 60 ml/min/1.73m2. Kidney Failure is indicated at less than 15 ml/min/1.73m2 Anion gap 11.0 mmol/L Normal 5.0-19.0 [facility] Comment on above: Performed By: #### 1 [id number] ####[facility] (DEFAULT)[address] [place] [address] BUN/Creatinine Ratio 26.0 mg/mg High 4.6-16.2 [facility] Comment on above: Performed By: #### 1 [id number] ####[facility] (DEFAULT)[address] [place] [address] Calcium 9.1 mg/dL Normal 8.9-10.3 [facility] Comment on above: Performed By: #### 1 [id number] ####[facility] (DEFAULT)[address] [place] [address] 41952 Chloride 107 mmol/L Normal 101-111 [facility] Comment on above: Performed By: #### 1 [id number] ####[facility] (DEFAULT)[address] [place] [address] 84614 CO2 24 mmol/L Normal 21-32 [facility] Comment on above: Performed By: #### 1 [id number] ####[facility] (DEFAULT)[address] [place] [address]0577 Creatinine 0.81 mg/dL Normal 0.60-1.30 [facility] Comment on above: Performed By: #### 1 [id number] ####[facility] (DEFAULT)[address] [place] [address] 99362 Glucose mass conc 106.0 mg/dL Normal 74.0-118.0 [facility] Comment on above: Performed By: #### 1 [id number] ####[facility] (DEFAULT)[address] [place] [address] Osmolality 279 mOsm/L Invalid Interpretation Code [facility] Comment on above: Performed By: #### 1 [id number] ####[facility] (DEFAULT)[address] [place] [address] Potassium molar conc 4.2 mmol/L Normal 3.6-5.1 [facility] Comment on above: Performed By: #### 1 [id number] ####[facility] (DEFAULT)[address] [place] [address] Sodium 138.0 mmol/L Normal 136.0-144.0 [facility] Comment on above: Performed By: #### 1 [id number] ####[facility] (DEFAULT)[address] [place] [address] 11797 Urea nitrogen 21 mg/dL Normal 8- [facility] Comment on above: Performed By: #### 1 [id number] ####[facility] (DEFAULT)[address] [place] [address] Inpatient Clinical Summaryon 01-22-[address] [facility] SURGERYClinical Discharge SummaryPERSON INFORMATIONName KATHRYN CARTY Age 37 Years [birth year]Sex FEMALE Language Namibian PCP Surekha STILL [facility] Acct# Arrival 01/22/17 06:06:27Visit Reason SURGERY - DX LAPAROSCOPY Acuity LOS 033 20:21Address:[address] [place] [address]Ypztqrk:PROVIDER INFORMATIONVITALS INFORMATIONVital Sign Triage LatestTemp OralTemp Temporal 36.3 DegC 36.3 DegCTemp IntravascularTemp AxillaryTemp Qsltar70 Sat 97 % 92 %Respiratory Rate 16 br/min 18 br/minPeripheral Pulse Rate 83 bpm 66 bpmApical Heart RateBlood Pressure 124 mmHg / 82 mmHg 123 mmHg / 88 mmHgComment:MEDICAL INFORMATIONAllergy Info:No Known Medication AllergiesPrescriptions Given:Prescription Displayacetaminophen-hydrocod one (Hampton 5 mg-325 mg oral tablet) 1 tab(s), [...] ), PO, DailyMedication List:Fill New Prescriptions:acetaminophen-h ydrocodone (Hampton 5 mg-325 mg oral tablet) 1 tab(s) [...] Centeno (MHKHARRISON)Follow up:With: Address: When:George Centeno [address] [place] [address] Business (1) In 2 weeks 02/05/17Comments:Call for follow up appointmentWith: Address: When:SEN STILL [address] [place] [address] [place] [phone] Business (1)DIAGNOSISPelvic painComment:PHYS DOC NOTES Normal [facility] Inpatient Patient Summaryon 01-22-2017 Inpatient Patient Summary [address] [id number] Patient Discharge InstructionsName: KATHRYN CARTYOB: 82 Address: [address] [place], [place] [id number] Care Provider:Name: SEN STILLPhone: Discharge Diagnosis: Pelvic [...] or business decisions or sign any legal documentsGrant Hospital would like to thank you for allowing us to assist you with your healthcare needs. The following includes patient education materials and information regarding your injury/illness.KATHRYN CARTY has been given the following list of follow-up instructions, prescriptions, and patient education materials:Follow-up InstructionsWith: Address: When:George Centeno [address] [place], [place] [id number] Business (1) In 2 weeks 02/05/17Comments:Call for follow up appointmentWith: Address: When:SEN STILL [address] [facility] [place] [address] Business (1)MedicationsDuring the course of your visit, your medication list was updated with the most current information. The details of those changes are reflected below:New MedicationsPrinted Prescriptionsacetaminophen-hy drocodone (Hampton 5 mg-325 mg oral tablet) 1 tab(s) [...] list that you can keep with you.acetaminophen-hydrocodone (Hampton 5 mg-325 mg oral tablet) 1 tab(s) [...] the throat and abdomen.HOME CARE INSTRUCTIONS? Take dono-puz-hmnhccu and prescription medicines only as told by [...] and water are not available, use hand vacuum cleaner operator.? Change your dressings (Band Aids) daily after [...] health care provider.Document Released: 03/26/2016 Document Reviewed: 03/26/2016[employer] Interactive Patient Education ?2016 [employer] Viruses or BacteriaWhat?s got you sick?Antibiotics [...] the Answerwww.cdc.gov/getsmart GET SMART Know When Antibiotics Trista.[place] Department of Health and Human ServicesGreen Cross Hospitalers for Disease Control and Prevention December 2013 [facility] MAGR PACU Recordon 7 MAGR PACU Record MAGR PACU Record Yoandy brush Primary Physician: George Centeno DO Finalized Date/Time: 01/22/17 10:25:13 Pt. Name: KATHRYN CARTY/Sex: 1980 FEMALE Med Rec #: [id number] Physician: George Centeno DO Financial #: [id number] Pt. Type: D Room/Bed: / Admit/Disch: 01/22/17 [...] TO PACU II AND CARE CONT PER LEAD TECHNICAL WRITER. Finalized By: Lillie Main Document Signatures Signed By: Lillie Main 01/22/17 10:25 [facility] MAGR Postoperative Recordon 01-22-2017 MAGR Postoperative Record MAGR Phase II Record Summary Primary Physician: George Centeno DO Finalized Date/Time: 01/22/17 11:05:19 Pt. Name: KATHRYN CARTY/Sex: 1980 FEMALE Med Rec #: [id number] Physician: George Centeno DO Financial #: [id number] Pt. Type: D Room/Bed: / Admit/Disch: 01/22/17 [...] Signatures Signed By: Lillie Main 01/22/17 11:05 [facility] Operative Report - Surgeon/P pinky 01-22-2017 Operative [...] Blood in the cul-de-sac was noted andStryker recreation instructor was then placed into the second trocar [...] awake and in stable condition.SHAMIR Paul #: [id number]: 01/22/2017T: 01/22/2017[Electronically Signed on: 01/22/2017 12:53 EDT] George Centeno DO, D.O.[Verified on: 01/22/2017 12:53 EDT] George Centeno DO, D.O.[Transcribed on: 01/22/2017 11:14 EDT]GDU [facility] Test Urine 1on U Preg Negative [facility] Comment on above: Result Comment: Nega tive Performed By: #### [id number] ####[facility] (DEFAULT)[address] [place] [id number] U Preg Internal Control Pass [facility] Comment on above: Result Comment: Pass Performed By: #### [id number] ####[facility] (DEFAULT)[address] [place] [address] Vital Signs Date Time Vital Sign Value Performing Clinician Facility 10-26-2024 08:45-0400 Body mass index (BMI) [Ratio] 27.9 kg/m2 Allison Damari DO Work Phone: [facility] 10-26-2024 08:45-0400 Body weight 71.44 kg Allison Damari DO Work Phone: [facility] 10-26-2024 08:45-0400 Diastolic blood pressure 92 mm[Hg] Allison Damari DO Work Phone: [facility] 10-26-2024 08:45-0400 Systolic blood pressure 128 mm[Hg] Allison Damari DO Work Phone: [facility] 01-17-2024 02:17-0400 Body height 160.02 cm MD Sen Still Work Phone: [facility] 01-17-2024 02:17-0400 Body temperature 98.1 [degF] MD Sen Still Work Phone: [facility] 01-17-2024 02:17-0400 Body weight 77.95 kg MD Sen Still Work Phone: [facility] 01-17-2024 02:17-0400 Diastolic blood pressure 109 mm[Hg] MD Sen Still Work Phone: [facility] 01-17-2024 02:17-0400 Heart rate 86 /min MD Sen Still Work Phone: [facility] 01-17-2024 02:17-0400 Respiratory rate 18 /min MD Sen Still Work Phone: [facility] 01-17-2024 02:17-0400 SaO2% (BldA) [Mass fraction] 95 % MD Sen Still Work Phone: [facility] 01-17-2024 02:17-0400 Systolic blood pressure 167 mm[Hg] MD Sen Still Work Phone: [facility] Encounters Encounter Date Encounter Type Care Provider Facility Start: 10-26-2024 End: 10-26-2024 Bamboo flowsheet Allison Damari DO Work Phone: [facility] Start: 10-26-2024 End: 10-26-2024 Bamboo flowsheet Allison Damari DO Work Phone: [facility] Start: 10-26-2024 End: 10-26-2024 Patient encounter procedure Allison Damari DO Work Phone: [facility] Start: 10-26-2024 End: 10-26-2024 Periodic preventive med est patient 40-64yrs Allison Damari DO Work Phone: [facility] Comment on above: Well woman exam with routine gynecological exam; Encounter for screening mammogram for malignant neoplasm of breast; Breast lump on left side at 2 o'clock position Start: 01-17-2024 End: 01-17-2024 Emergency department patient visit MD Sen Still Work Phone: [facility] Work Phone: Start: 10-24-2023 End: 10-24-2023 ambulatory ALLISON ARNOLDO Not Available Start: 08-27-2022 End: 08-28-[address] SEN STILL . Facility:[facility] Start: 07-03-2022 Encounter for genera l adult medical examination without abnormal findings DR SEN STILL . [facility] Start: 07-02-2022 End: 07-03-[address] SEN STILL . Facility:[facility] Start: 07-02-2022 End: 07-03-2022 Encounter for general adult medical examination without abnormal findings DR SEN STILL . Facility:[facility] Start: 04-17-2022 End: 04-17-[address] SEN STILL . Facility:[facility] Start: 03-19-2017 End: 03-19-2017 Ambulatory GEORGE CENTENO Facility:[facility] Start: 03-14-2017 Ambulatory GEORGE CENTENO Facility: [facility] Start: 01-22-2017 End: 01-22-2017 Ambulatory GEORGE CENTENO Facility:[facility] Start: 01-17-2017 End: 01-17-2017 Ambulatory GEORGE CENTENO Facility:[facility] Plan of Treatment Date Care Activity Detail Author Start: 11-01-2025 End: 11-01-2025 Patient encounter procedure 11/01/2025 8:30 AM EDT Office Visit [facility] [address] [facility] [place] [id number] Allison Wetzel, DO [address] [place] [address] [facility] Start: 10-26-2024 End: 12-26-2025 MG Breast - bilateral Diagnostic Bilateral diagnostic mammogram Imaging Routine Breast lump on left side at 2 o'clock position Expected: 10/26/2024 (Approximate), Expires: 12/26/2025 [facility] Comment on above: Expected: 10/26/2024 (Approximate), Expires: 12/26/2025 Start: 10-26-2024 End: 10-26-2024 Patient encounter procedure 10/26/2024 8:30 AM EDT Office Visit [facility] [address] [facility] [place] [phone] Allison Wetzel, DO [address] [place] [address] Arrived [facility] Comment on above: Arrived Start: 01-17-2024 Bacteria identified in Urine by Culture [facility] Patient Education Urinary Tract Infection, Adult ED Vaginal Yeast Infection, Adult ED [facility] Work Phone: Patient referral [facility] Work Phone: THIN PREP TIS PAP AN D HR HPV DNA THIN PREP TIS PAP AND HR HPV DNA Pathology and Cytology Routine Well woman exam with routine gynecological exam Ordered: 10/26/2024 [facility] Work Phone: Comment on above: Ordered: 10/26/2024 Payers Date Payer Category Payer Blue [employer] Blue [employer] BCBS [id number] 2024 Self-pay [id number] 2017 Private Health Insurance [id number] 1980 Unknown [id number] 1980 Unknown [id number] 1980 Unknown [id number] 1980 Unknown [id number] 1958 Private Health Insurance [id number] 1958 Unknown [id number] Private Health Insurance [employer] [id number] Unknown [id number] Worker's Compensation [id number] Social History Date Type Detail Facility Start: 01-17-2024 [facility] Start: 1980 Sex Assigned At Female F [facility] consumption unknown [facility] Start: 1980 Sex assigned at Not on file [facility] Start: 10-26-2024 Gender identity Not on file [facility] Start: 02-07-1999 Tobacco smoking stat [facility] Occasional tobacco smoker [facility] Start: 02-07-1999 History of tobacco use Cigarette Smo ker [facility] Start: 10-26-2024 Cigarettes smoked current (pack per day) - Reported 0.5 [facility] Start: 10-26-2024 Alcoholic beverage intake Ex-drinker (finding) [facility] History of Present illness Narrative 10-26-2024 Irasema Pepper, [employer]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 female who presents [...] Medical History: Diagnosis Date Endometriosis 2009 Hypertension 2008 Ovarian cyst 2012 Social History Tobacco Use Smoking status: Some Days Current packs/day: 0.50 Average packs/day: 0.5 packs/day for 25.7 years (12.9 ttl pk-yrs) Types: Cigarettes Start date: 02/07/1999 Smokeless tobacco: Not on file Substance Use Topics Alcohol use: Not Currently Drug use: Never FAMILY HISTORY No family history on file. SURGICAL HISTORY Past Surgical History: Procedure Laterality Date SECTION, LOW TRANSVERSE 2003 ENDOMETRIAL ABLATION 2019 HYSTERECTOMY 2020 REVIEW OF [...] nursing note reviewed. Exam conducted with a senior director creative services present. Vitals: Estimated body mass index is 27.9 kg/m as calculated from the following: Height as of 04/17/: 5' 3 . Weight as of this [...] them. Patient can also view results via [employer]. I reinforced importance of condom use for [...] by Irasema Pepper LPN on behalf of: Allison Wetzel DO documented in this encounter [facility] Evaluation note Note Date & Type Note Facility Evaluation note No assessment information availa ble [facility] Work Phone: Evaluation note Note Date & Type Note Facility Evaluation note Diagnosis Well woman exam with routine gynecological exam Routine gynecological examination Encounter for screening mammogram for malignant neoplasm of breast Breast lump on left side at 2 o'clock position Lump or mass in breast documented in this encounter [facility] Hospital Discharge instructions Note Date & Type Note Facility Hospital Discharge instructions Additional Instructions Follow-up with your doctor. We are always happy to see you here if you need our help. [facility] Work Phone: Summary Purpose Family History Relationship Condition Age at Onset Recorded Date/T nehemiah father Heart problem Unknown Advance Directives Advance Directive Response Recorded Date/ Time Advance Directives No February 12, 2020 12:37am Chief Complaint and Reason for Visit Chief Complaint Frequent & Burning w /Urination Additional Source Comments INFORMATION SOURCE (unrecogn ized section and content) DATE CREATED AUTHOR 10/15/2017 [facility] DATE CREATED AUTHOR AUTHOR'S ORGANIZ ATION 08/31/2022 [facility] DATE CREATED AUTHOR AUTHOR'S ORGANIZ ATION 10/25/2023 [facility] EPIC DATE CREATED AUTHOR AUTHOR'S ORGANIZ ATION 01/31/2024 [facility] Care Teams (unrecognized sec tion and content) Team Status: Active Member Role Status Dates Sen Still MD Primary Care Provider Active Team Status: Inactive Member Role Status Dates Sen Still MD Primary Care Provider Active Start: January 17, 2024 End: January 17, 2024 Juan Manuel Keith Jr, MD Emergency Provider Active Start: January 17, 2024 End: January 17, 2024 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 [facility]. provides no warranty or guarantee of the accuracy or completeness of information in this document.
[2024-10-28 12:10] LABS: Age Gdln ACOG Testing Note (.); HPV Aptima Negative (Negative); IGP, Aptima HPV, rfx 16/18,45 Note (.)
== END 2024-10-26 12:07 | disposition home or self-care (01) ==
LOC: LAB 12:06
PROVIDERS: PCP Family Medicine; Visit Provider Obstetrics & Gynecology
DX: Z01.419 Encounter for gynecological examination (general) (routine) without abnormal findings (principal)
CPT/HCPCS: 87624; 88175